=== PATIENT | female | born 1935 | race Caucasian/White ===

== ENCOUNTER 2017-01-26 02:09 | Emergency (ER) | payer MEDICARE, OTHER ==
[2017-01-26] MEDS ORDERED: Ondansetron INJ* 2 MG/ML VIAL IV ONE (02:43)
[2017-01-26 03:37] LABS: Hematocrit 41 % (35-47); Hemoglobin 14.2 g/dl (12.0-16.0); Mean Corpuscular HGB Conc 35 g/dl (31-36); Mean Corpuscular Hemoglobin 32 pg (27-31); Mean Corpuscular Volume 93 fL (80-97); Mean Platelet Volume 8 um3 (7.4-10.4); Red Blood Count 4.39 10^6/ul (4.0-5.4); Red Cell Distribution Width 13 % (10.5-15); White Blood Count 8.7 10^3/ul (3.5-10.8)
[2017-01-26 03:51] LABS: Digoxin 0.9 ng/ml (0.8-2.0)
[2017-01-26 03:53] LABS: Albumin 4.1 g/dL (3.2-5.2); BUN/Creatinine Ratio 21.6 (8-20); Calcium 9.6 mg/dL (8.6-10.3); EGFR African American 96.6 (>60); EGFR Non-African American 75.1 (>60); Globulin 3.2 g/dL (2-4); Magnesium 2.1 mg/dL (1.9-2.7); Total Bilirubin 0.5 mg/dL (0.2-1.0); Total Protein 7.3 g/dL (6.4-8.9)
[2017-01-26] MEDS ORDERED: Morphine INJ* 2 MG/ML 1 ML CARPUJECT IV ONE (04:01)
[2017-01-26 04:10] LABS: TSH (Thyroid Stimulating Horm) 1.92 mcIU/mL (0.34-5.60)
[2017-01-26 04:28] LABS: C Reactive Protein 1.63 mg/L (< 5.00)
[2017-01-26] MEDS ORDERED: Iohexol 300* (CONTRAST) 10 ML SDV IV ONE (04:37)
[2017-01-26 05:34] LABS: Urine Bacteria 1+ (Absent); Urine Bilirubin Negative (Negative); Urine Glucose Negative (Negative); Urine Nitrite Negative (Negative)
--- NOTE | 2017-01-26 08:02 | RAD ---
HISTORY: Palpitation COMPARISONS: October 08, 2015 VIEWS: 1: frontal portable view of the chest at 3:10 AM FINDINGS: LINES AND TUBES: None. CARDIOMEDIASTINAL SILHOUETTE: The aorta is tortuous. The cardiomediastinal silhouette is otherwise normal for portable technique. This is stable from the 2016 examination. PLEURA: The costophrenic angles are sharp. No pleural abnormalities are noted. LUNG PARENCHYMA: There is hyperinflation. ABDOMEN: The upper abdomen is clear. There is no subphrenic gas. Surgical clips are noted in the upper abdomen. 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 IMPRESSION: NO ACTIVE CARDIOPULMONARY DISEASE.
[2017-01-26 08:14] VITALS: BP 112/85
--- NOTE | 2017-01-26 08:24 | RAD ---
CLINICAL HISTORY: Abdominal pain COMPARISON: August 08, 2011 TECHNIQUE: Multiple contiguous axial CT scans were obtained of the abdomen and pelvis after the administration of intravenous contrast. Coronal and sagittal multiplanar reformations are submitted for review. Oral contrast was administered. Delayed images were obtained through the abdomen and pelvis. FINDINGS: LUNG BASES: The lung bases are clear. LIVER: The liver is normal in shape, size, contour, and attenuation. BILE DUCTS: There is no intrahepatic or extrahepatic biliary dilatation. GALLBLADDER: Multiple gallstones are noted. There is no pericholecystic inflammatory change. PANCREAS: The pancreas is normal, without mass or ductal dilatation. SPLEEN: Normal in size and appearance. UPPER GI TRACT: Evaluation of the gastrointestinal tract is limited by incomplete gastric distention. There are multiple surgical clips along the upper GI tract. SMALL BOWEL AND MESENTERY: The small bowel is normal in contour, course, and caliber. There is no obstruction or dilatation. COLON: There are multiple diverticula of the sigmoid colon. There is no pericolonic inflammatory change. ADRENALS: Normal bilaterally. KIDNEYS: A left renal cyst is noted.. There is no hydronephrosis or nephrolithiasis. BLADDER: The bladder is smooth in contour. PELVIC ORGANS: The pelvic organs are not visualized. AORTA: There is calcific atherosclerotic disease of the abdominal aorta and its branches, without aneurysmal dilatation IVC: Unremarkable LYMPH NODES: There is no lymphadenopathy by size criteria. ABDOMINAL WALL: There is no evidence for abdominal wall hernia. BONES AND SOFT TISSUES: There is a scoliotic curvature of the spine. Degenerative changes are noted. OTHER: None IMPRESSION: CHOLELITHIASIS. DIVERTICULOSIS
--- NOTE | 2017-01-26 10:09 | ED ---
Tanisha Torres Thomas, scribed for Tracy Rodriguez MD on 01/26/17 at 0243 . Palpitations / Dysrhythmia - HPI Summary HPI Summary: The pt is an 80 y/o F presenting to the ED c/o palpitations characterized as that began today at approximately 00:00. She reports generalized illness throughout yesterday. She did not sleep well last night. Pt additionally c/o mild abdominal pain (all yesterday), cough, and nausea. Pt denies CP. She is accompanied by her . PMHx of A-Fib, peripheral neuropathy, and LVH. She is on Xarelto 20mg, Duloxetine 30mg, Tramadol 50mg, Digoxin 125mg, Amoxicillin 500mg, Magnesium 250mg, and Spironolactone 25mg. She is accompanied by her . His phone number is . - History of Current Complaint Chief Complaint: EDDysrhythmPalp Hx Obtained From: Patient, Family/Meat Boner And Slicer - in the room Onset/Duration: Lasting Hours - onset today at 00:00, Still Present Timing: Constant Severity Initially: Moderate Severity Currently: Severe Character: Fast Aggravating: Nothing Alleviating: Nothing Associated Signs & Symptoms: Negative - negative for CP. She reports cough and mild abd pain., Nausea - Allergy/Home Medications Allergies/Adverse Reactions: Allergies Allergy/AdvReac Type Severity Reaction Status Date / Time No Known Allergies Allergy Verified 01/27/15 15:11 PMH/Surg Hx/FS Hx/Imm Hx Previously Healthy: No Endocrine/Hematology History: Reports: Hx Anticoagulant Therapy - xarelto 20mg PO daily Denies: Hx Diabetes, Hx Thyroid Disease Cardiovascular History: Reports: Hx Angina, Hx Atrial Fibrillation, Hx Hypercholesterolemia, Hx Hypertension Denies: Hx Coronary Artery Disease, Hx Myocardial Infarction, Hx Pacemaker/ ICD, Hx Valvular Heart Disease Respiratory History: Denies: Hx Asthma, Hx Chronic Obstructive Pulmonary Disease (COPD) Comment Only: Other Respiratory Problems/Disorders - HIATAL HERNIA REPAIR GI History: Reports: Other GI Disorders - recurent unexplained diarrhea Denies: Hx Ulcer History: Reports: Other Problems/Disorders - occasional incontinence Denies: Hx Renal Disease Musculoskeletal History: Reports: Hx Arthritis, Hx Osteoporosis, Other Musculoskeletal History - upper back pain Sensory History: Reports: Hx Contacts or Glasses Denies: Hx Hearing Aid Opthamlomology History: Reports: Hx Contacts or Glasses Neurological History: Reports: Hx Headaches, Other Neuro Impairments/Disorders - neuropathy, balance problem Denies: Hx Dementia, Hx Seizures Psychiatric History: Reports: Hx Depression - Denies: Hx Panic Disorder, Hx Substance Abuse - Cancer History Hx Chemotherapy: No Hx Radiation Therapy: No - Surgical History Surgery Procedure, Year, and Place: HYSTERECTOMY,KNEE REPLACEMENT RT SIDE, HIATAL HERNIA REPAIR Hx Anesthesia Reactions: No - Immunization History Date of Tetanus Vaccine: Unsure Date of Influenza Vaccine: up to date Infectious Disease History: No Infectious Disease History: Denies: Hx Clostridium Difficile, Hx Hepatitis, Hx Human Immunodeficiency Virus (HIV), Hx of Known/Suspected MRSA, Hx Shingles, Hx Tuberculosis, Hx Known/ Suspected VRE, Hx Known/Suspected VRSA, History Other Infectious Disease, Traveled Outside the in Last 30 Days - Family History Known Family History: Positive: Cardiac Disease - Social History Lives: With Family Alcohol Use: Daily Hx Substance Use: No Substance Use Type: Reports: None Hx Tobacco Use: Yes Smoking Status (MU): Former Smoker Review of Systems Positive: Other - Generalized illness yesterday Positive: Palpitations - characterized as racing with onset today at 00:00. Negative: Chest Pain Positive: Cough Positive: Abdominal Pain - mild, Nausea Positive: no symptoms reported Skin: Negative Neurological: Negative Psychological: Normal All Other Systems Reviewed And Are Negative: Yes Physical Exam Triage Information Reviewed: Yes Vital Signs On Initial Exam: Initial Vitals Temp Pulse Resp BP Pulse Ox 97.3 F 111 20 132/90 100 01/26/17 02:14 01/26/17 02:14 01/26/17 02:14 01/26/17 02:14 01/26/17 02:14 Vital Signs Reviewed: Yes Appearance: Positive: Well-Appearing, Well-Nourished, Pain Distress - abdominal Skin: Positive: Warm, Skin Color Reflects Adequate Perfusion Head/Face: Positive: Normal Head/Face Inspection Eyes: Positive: Conjunctiva Clear ENT: Positive: Normal ENT inspection Neck: Positive: Supple Respiratory/Lung Sounds: Positive: Clear to Auscultation, Breath Sounds Present , Other - No respiratory distress Cardiovascular: Positive: RRR, Pulses are Symmetrical in both Upper and Lower Extremities, Tachycardia, Other - Brisk cap refill. Negative: Murmur Abdomen Description: Positive: Soft, Other: - mild diffuse tenderness Bowel Sounds: Positive: Present Musculoskeletal: Positive: Strength/ROM Intact. Negative: Janette Sign Left, Janette Sign Right, Edema Left, Edema Right Neurological: Positive: Sensory/Motor Intact, Alert, Oriented to Person Place, Time, Facial Symmetry, Speech Normal Psychiatric: Positive: Normal Diagnostics - Vital Signs Vital Signs Temp Pulse Resp BP Pulse Ox 01/26/17 02:14 97.3 F 111 20 132/90 100 - Laboratory Lab Results: Lab Results 01/26/17 01/26/17 01/26/17 Range/Units 03:25 03:25 03:25 WBC 8.7 (3.5-10.8) 10^3/ul RBC 4.39 (4.0-5.4) 10^6/ul Hgb 14.2 (12.0-16.0) g/dl Hct 41 (35-47) % MCV 93 (80-97) fL MCH 32 H (27-31) pg MCHC 35 (31-36) g/dl RDW 13 (10.5-15) % Plt Count 289 (150-450) 10^3/ul MPV 8 (7.4-10.4) um3 Neut % (Auto) 65.6 (38-83) % Lymph % (Auto) 21.4 L (25-47) % [place] % (Auto) 9.9 H (1-9) % Eos % (Auto) 1.9 (0-6) % Baso % (Auto) 1.2 (0-2) % Absolute Neuts (auto) 5.7 (1.5-7.7) 10^3/ul Absolute Lymphs (auto) 1.9 (1.0-4.8) 10^3/ul Absolute Monos (auto) 0.9 H (0-0.8) 10^3/ul Absolute Eos (auto) 0.2 (0-0.6) 10^3/ul Absolute Basos (auto) 0.1 (0-0.2) 10^3/ul Absolute Nucleated RBC 0 10^3/ul Nucleated RBC % 0 INR (Anticoag Therapy) 1.05 (0.89-1.11) APTT 30.1 (26.0-36.3) seconds D-Dimer, Quantitative < 200 (Less Than 230) ng/mL Sodium (133-145) mmol/L Potassium (3.5-5.0) mmol/L Chloride (101-111) mmol/L Carbon Dioxide (22-32) mmol/L Anion Gap (2-11) mmol/L BUN (6-24) mg/dL Creatinine (0.51-0.95) mg/dL Est GFR ( Amer) (>60) Est GFR (Non-Af Amer) (>60) BUN/Creatinine Ratio (8-20) Glucose (70-100) mg/dL Lactic Acid (0.5-2.0) mmol/L Calcium (8.6-10.3) mg/dL Magnesium (1.9-2.7) mg/dL Total Bilirubin (0.2-1.0) mg/dL AST (13-39) U/L ALT (7-52) U/L Alkaline Phosphatase (34-104) U/L Total Creatine Kinase (10-223) U/L CK-MB (CK-2) (0.6-6.3) ng/mL Troponin I (<0.04) ng/mL C-Reactive Protein (< 5.00) mg/L B-Natriuretic Peptide 40 ( - 100) pg/mL Total Protein (6.4-8.9) g/dL Albumin (3.2-5.2) g/dL Globulin (2-4) g/dL Albumin/Globulin Ratio (1-3) Amylase (29-103) U/L Lipase (11.0-82.0) U/L TSH (0.34-5.60) mcIU/mL Urine Color Urine Appearance Urine pH (5-9) Ur Specific [place] (1.010-1.030) Urine Protein (Negative) Urine Ketones (Negative) Urine Blood (Negative) Urine Nitrate (Negative) Urine Bilirubin (Negative) Urine Urobilinogen (Negative) Ur Leukocyte Esterase (Negative) Urine WBC (Auto) (Absent) Urine RBC (Auto) (Absent) Ur Squamous Epith Cells (Absent) Urine Bacteria (Absent) Urine Glucose (Negative) Digoxin (0.8-2.0) ng/ml 01/26/17 01/26/17 01/26/17 Range/Units 03:25 03:25 05:00 WBC (3.5-10.8) 10^3/ul RBC (4.0-5.4) 10^6/ul Hgb (12.0-16.0) g/dl Hct (35-47) % MCV (80-97) fL MCH (27-31) pg MCHC (31-36) g/dl RDW (10.5-15) % Plt Count (150-450) 10^3/ul MPV (7.4-10.4) um3 Neut % (Auto) (38-83) % Lymph % (Auto) (25-47) % [place] % (Auto) (1-9) % Eos % (Auto) (0-6) % Baso % (Auto) (0-2) % Absolute Neuts (auto) (1.5-7.7) 10^3/ul Absolute Lymphs (auto) (1.0-4.8) 10^3/ul Absolute Monos (auto) (0-0.8) 10^3/ul Absolute Eos (auto) (0-0.6) 10^3/ul Absolute Basos (auto) (0-0.2) 10^3/ul Absolute Nucleated RBC 10^3/ul Nucleated RBC % INR (Anticoag Therapy) (0.89-1.11) APTT (26.0-36.3) seconds D-Dimer, Quantitative (Less Than 230) ng/mL Sodium 136 (133-145) mmol/L Potassium 4.0 (3.5-5.0) mmol/L Chloride 102 (101-111) mmol/L Carbon Dioxide 26 (22-32) mmol/L Anion Gap 8 (2-11) mmol/L BUN 16 (6-24) mg/dL Creatinine 0.74 (0.51-0.95) mg/dL Est GFR ( Amer) 96.6 (>60) Est GFR (Non-Af Amer) 75.1 (>60) BUN/Creatinine Ratio 21.6 H (8-20) Glucose 112 H (70-100) mg/dL Lactic Acid 1.4 (0.5-2.0) mmol/L Calcium 9.6 (8.6-10.3) mg/dL Magnesium 2.1 (1.9-2.7) mg/dL Total Bilirubin 0.50 (0.2-1.0) mg/dL AST 15 (13-39) U/L ALT 20 (7-52) U/L Alkaline Phosphatase 57 (34-104) U/L Total Creatine Kinase 39 (10-223) U/L CK-MB (CK-2) 1.9 (0.6-6.3) ng/mL Troponin I 0.00 (<0.04) ng/mL C-Reactive Protein 1.63 (< 5.00) mg/L B-Natriuretic Peptide ( - 100) pg/mL Total Protein 7.3 (6.4-8.9) g/dL Albumin 4.1 (3.2-5.2) g/dL Globulin 3.2 (2-4) g/dL Albumin/Globulin Ratio 1.3 (1-3) Amylase 54 (29-103) U/L Lipase 57 (11.0-82.0) U/L TSH 1.92 (0.34-5.60) mcIU/mL Urine Color Yellow Urine Appearance Cloudy Urine pH 6.0 (5-9) Ur Specific [place] 1.016 (1.010-1.030) Urine Protein Negative (Negative) Urine Ketones Negative (Negative) Urine Blood Negative (Negative) Urine Nitrate Negative (Negative) Urine Bilirubin Negative (Negative) Urine Urobilinogen Negative (Negative) Ur Leukocyte Esterase 2+ H (Negative) Urine WBC (Auto) 1+(6-10/hpf) H (Absent) Urine RBC (Auto) Absent (Absent) Ur Squamous Epith Cells Present H (Absent) Urine Bacteria 1+ H (Absent) Urine Glucose Negative (Negative) Digoxin 0.9 (0.8-2.0) ng/ml 01/26/17 Range/Units 07:00 WBC (3.5-10.8) 10^3/ul RBC (4.0-5.4) 10^6/ul Hgb (12.0-16.0) g/dl Hct (35-47) % MCV (80-97) fL MCH (27-31) pg MCHC (31-36) g/dl RDW (10.5-15) % Plt Count (150-450) 10^3/ul MPV (7.4-10.4) um3 Neut % (Auto) (38-83) % Lymph % (Auto) (25-47) % [place] % (Auto) (1-9) % Eos % (Auto) (0-6) % Baso % (Auto) (0-2) % Absolute Neuts (auto) (1.5-7.7) 10^3/ul Absolute Lymphs (auto) (1.0-4.8) 10^3/ul Absolute Monos (auto) (0-0.8) 10^3/ul Absolute Eos (auto) (0-0.6) 10^3/ul Absolute Basos (auto) (0-0.2) 10^3/ul Absolute Nucleated RBC 10^3/ul Nucleated RBC % INR (Anticoag Therapy) (0.89-1.11) APTT (26.0-36.3) seconds D-Dimer, Quantitative (Less Than 230) ng/mL Sodium (133-145) mmol/L Potassium (3.5-5.0) mmol/L Chloride (101-111) mmol/L Carbon Dioxide (22-32) mmol/L Anion Gap (2-11) mmol/L BUN (6-24) mg/dL Creatinine (0.51-0.95) mg/dL Est GFR ( Amer) (>60) Est GFR (Non-Af Amer) (>60) BUN/Creatinine Ratio (8-20) Glucose (70-100) mg/dL Lactic Acid (0.5-2.0) mmol/L Calcium (8.6-10.3) mg/dL Magnesium (1.9-2.7) mg/dL Total Bilirubin (0.2-1.0) mg/dL AST (13-39) U/L ALT (7-52) U/L Alkaline Phosphatase (34-104) U/L Total Creatine Kinase (10-223) U/L CK-MB (CK-2) (0.6-6.3) ng/mL Troponin I 0.00 (<0.04) ng/mL C-Reactive Protein (< 5.00) mg/L B-Natriuretic Peptide ( - 100) pg/mL Total Protein (6.4-8.9) g/dL Albumin (3.2-5.2) g/dL Globulin (2-4) g/dL Albumin/Globulin Ratio (1-3) Amylase (29-103) U/L Lipase (11.0-82.0) U/L TSH (0.34-5.60) mcIU/mL Urine Color Urine Appearance Urine pH (5-9) Ur Specific [place] (1.010-1.030) Urine Protein (Negative) Urine Ketones (Negative) Urine Blood (Negative) Urine Nitrate (Negative) Urine Bilirubin (Negative) Urine Urobilinogen (Negative) Ur Leukocyte Esterase (Negative) Urine WBC (Auto) (Absent) Urine RBC (Auto) (Absent) Ur Squamous Epith Cells (Absent) Urine Bacteria (Absent) Urine Glucose (Negative) Digoxin (0.8-2.0) ng/ml Result Diagrams: 01/26/17 03:25 01/26/17 03:25 Lab Statement: Any lab studies that have been ordered have been reviewed, and results considered in the medical decision making process. - Radiology CXR Xray Interpretation: No Acute Changes - No active cardiopulmonary disease. ED physician has reviewed this report and agrees. Radiology Interpretation Completed By: Radiologist - EKG 02:26 Cardiac Rate: NL - 98 BPM EKG Rhythm: Sinus Rhythm EKG Interpretation: First degree AV block (211). Nml IV/QTc. Left axis (-14). No acute changes. EKG Comparison: No Significant Change - compared to 10/07/16. Re-Evaluation - Re-Evaluation First Eval Re-Evaluation Time: 03:56 Change: Worse Comment: At re-evaluation the patient is feelng more uncomortable. She accepts pain medication. Second Eval Re-Evaluation Time: 05:46 Change: Improved Comment: She is without pain. She is drinking the contrast before the CT. Third Eval Re-Evaluation Time: 09:00 - Advised of CT results showing gallstones. Reports she is painfree. Will take a cab home so her can sleep. Change: Improved Course/Dx - Course Course Of Treatment: I am drawing a 3 hr troponin at 06:15. Allergies noted. High blood pressure noted. Patients medications reviewed this visit. Assessment/Plan: The pt is an 81 y/o F presenting to the ED c/o palpitations characterized as that began today at approximately 00:00. Pt additionally c/o mild abdominal pain (all yesterday), cough, and nausea. PMHx of A-Fib, peripheral neuropathy, and LVH. Patients medication reviewed this visit. Blood pressure noted. In the ED course the patient was given morphine and Zofran. The patient was given Morphine and Zofran in the ED. Bloodwork was obtained with results earlier in this report. UA was obtained with results earlier in this report. It is negative except for 2+ in the RBC, RBC 1+, and 1+ bacteria. EKG was obtained and pt is in SR. CXR shows no active cardiopulmonary disease. CT Abd/Pel reveals cholelithiasis and diverticulosis. ED physician has reviewed this report and agrees. Second troponin is negative and pt remains in SR at a controlled rate. The patient is stable. She will be discharged home. She was instructed to return to the emergency department for any new or worsening symptoms. - Diagnoses Differential Diagnosis/HQI/PQRI: Positive: Congestive Heart Failure, Coronary Artery Disease, Hypokalemia, Myocarditis, Pulmonary Embolism Provider Diagnoses: Palpitations, Gallstones Discharge - Discharge Plan Condition: Stable Disposition: HOME Prescriptions: Sulfamethox/Trimethoprim DS* [Bactrim DS 800/160 TAB*] 1 tab PO BID #10 tab Patient Education Materials: Palpitations (ED), Gallstones (ED) Referrals: Dina Harding MD [Primary Care Provider] - 2 Days Additional Instructions: The CT scan of your abdomen showed gallstones. We gave you a copy of your labs. Return to the ER if any new or worsening symptoms. The documentation as recorded by the Tanisha peters Thomas accurately reflects the service I personally performed and the decisions made by , Tracy Rodriguez MD.
--- NOTE | 2017-01-28 09:23 | PN ---
Progress Note - Progress Note Date of Service: 01/26/17 Note: >100,000 of E. Coli grew on preliminary urine culture results. Spoke with patient at 9:05am who states the only symptoms she is having is feeling the urge to urinate without producing. Started on bactrim, sent to [facility]. Will wait for final culture sensitivity results. Results were faxed to PCP, patient request. No further action required at this time.
== END 2017-01-26 08:14 | disposition home or self-care (01) ==
LOC: ED 02:09
DX: R00.2 Palpitations (principal); K80.80 Other cholelithiasis without obstruction; Z87.891 Personal history of nicotine dependence; I48.91 Unspecified atrial fibrillation; E78.00 Pure hypercholesterolemia, unspecified; I10 Essential (primary) hypertension; M19.90 Unspecified osteoarthritis, unspecified site; M81.0 Age-related osteoporosis without current pathological fracture; I44.0 Atrioventricular block, first degree
CPT/HCPCS: 36415; 71010; 74177; 80053; 80162; 81003; 81015; 82150; 82550; 82553; 83605; 83690; 83735; 83880; 84443; 84484; 85025; 85379; 85610; 85730; 86140; 87077; 87086; 87186; 93005; 96374; 96375; 99284; J2270; J2405; Q9967

== ENCOUNTER 2017-12-23 10:14 | Emergency (ER) | payer MEDICARE, OTHER ==
[2017-12-23 10:28] VITALS: BP 117/73
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
--- NOTE | 2017-12-23 11:22 | RAD ---
INDICATION: Left hip injury. COMPARISON: Comparison is made with a prior CT of the abdomen and pelvis from January 26, 2017. TECHNIQUE: An AP view of the pelvis and frontal and lateral views of the left hip were obtained. FINDINGS: The bones are in normal alignment. No fracture is seen. There is mild bilateral osteoarthritic changes in the hips. IMPRESSION: NO EVIDENCE FOR FRACTURE, IF THE PATIENT'S SYMPTOMS PERSIST RECOMMEND FOLLOW-UP IMAGING.
--- NOTE | 2017-12-23 11:28 | RAD ---
INDICATION: Left knee injury. COMPARISON: Comparison is made with a prior study from October 23, 2016. TECHNIQUE: 4 views of the left knee were obtained. FINDINGS: The bones appear osteopenic. There is a small joint effusion. No fracture is seen. Calcifications project in the region of the suprapatella bursa which appear unchanged. There is severe osteoarthritic change in the lateral compartment and mild osteoarthritic change in the medial and patellofemoral compartments. IMPRESSION: 1. SMALL JOINT EFFUSION, NO FRACTURE IS SEEN. 2. SEVERE OSTEOARTHRITIC CHANGE IN THE LATERAL COMPARTMENT.
== END 2017-12-23 11:50 | disposition home or self-care (01) ==
LOC: UCEAST 10:14
DX: S83.92XA Sprain of unspecified site of left knee, initial encounter (principal); S70.02XA Contusion of left hip, initial encounter; Z79.01 Long term (current) use of anticoagulants; I10 Essential (primary) hypertension; Z87.891 Personal history of nicotine dependence; W19.XXXA Unspecified fall, initial encounter; Y93.89 Activity, other specified; Y92.009 Unspecified place in unspecified non-institutional (private) residence as the place of occurrence of the external cause
CPT/HCPCS: 99212; G0463

== ENCOUNTER 2018-10-18 10:20 | Emergency (ER) | payer MEDICARE, OTHER ==
--- NOTE | 2018-10-18 10:54 | ED ---
Psychiatric Complaint - HPI Summary HPI Summary: An 83 y/o female presents to [facility] with a chief complaint of SI without a plan this morning. She notes that every day she has pain in her left knee due to severe arthritis, and she is tired of living in pain. She rates her pain as a 1/ 10 in severity. She also reports that she recently stopped driving and that makes her upset because reportedly her nurse thought that she was not capable of driving. Even though currently she denies SI, she notes that while she was looking forward to going to the theatre tonight, at the time this morning she was thinking about suicide. However, she dealt with SI 40 years ago and her psychiatrist told her that she should come talk to someone before making a decision, so she came in to the ED. She has a Hx of HTN and Atrial fibrillation. She denies DM or HLD. She is on Tramadol. She reports falling 1.5 months ago and hitting her head above her left eye. She reports having a Brain MRI done two days ago. While she states that she has not been diagnosed with depression, she thinks that she has been dealing with depression. - History Of Current Complaint Chief Complaint: EDSuicidal Time Seen by Provider: 10/18/18 10:36 Hx Obtained From: Patient Onset/Duration: Sudden Onset, Lasting Hours, Still Present Timing: Constant Severity Initially: Mild Severity Currently: Mild Character: Depressed Aggravating Factor(s): Nothing Alleviating Factor(s): Nothing Associated Signs And Symptoms: Negative: Hostile Related History: Positive For: Prior Psychiatric Issues Has Suicidal: Reports: Thoughts. Denies: With A Plan Has Homicidal: Denies: Thoughts - Allergies/Home Medications Allergies/Adverse Reactions: Allergies Allergy/AdvReac Type Severity Reaction Status Date / Time No Known Allergies Allergy Verified 10/18/18 10:29 Home Medications: Home Medications DULoxetine DR CAP* [Cymbalta CAP*] 60 mg PO DAILY 10/18/18 [History Confirmed ] L.acidoph,Paracasei, B.lactis [Probiotic] 1 each PO DAILY 10/18/18 [History Confirmed 10/18/18] PMH/Surg Hx/FS Hx/Imm Hx Endocrine/Hematology History: Reports: Hx Anticoagulant Therapy - xarelto 20mg PO daily Denies: Hx Diabetes, Hx Thyroid Disease Cardiovascular History: Reports: Hx Angina, Hx Atrial Fibrillation, Hx Hypercholesterolemia, Hx Hypertension Denies: Hx Coronary Artery Disease, Hx Myocardial Infarction, Hx Pacemaker/ ICD, Hx Valvular Heart Disease Respiratory History: Denies: Hx Asthma, Hx Chronic Obstructive Pulmonary Disease (COPD) Comment Only: Other Respiratory Problems/Disorders - HIATAL HERNIA REPAIR GI History: Reports: Other GI Disorders - recurent unexplained diarrhea Denies: Hx Ulcer History: Reports: Other Problems/Disorders - occasional incontinence Denies: Hx Renal Disease Musculoskeletal History: Reports: Hx Arthritis, Hx Osteoporosis, Other Musculoskeletal History - upper back pain Sensory History: Reports: Hx Contacts or Glasses Denies: Hx Hearing Aid Opthamlomology History: Reports: Hx Contacts or Glasses Neurological History: Reports: Hx Headaches, Other Neuro Impairments/Disorders - neuropathy, balance problem Denies: Hx Dementia, Hx Seizures Psychiatric History: Reports: Hx Depression - Denies: Hx Panic Disorder, Hx Substance Abuse - Cancer History Hx Chemotherapy: No Hx Radiation Therapy: No - Surgical History Surgery Procedure, Year, and Place: HYSTERECTOMY,KNEE REPLACEMENT RT SIDE, HIATAL HERNIA REPAIR Hx Anesthesia Reactions: No - Immunization History Date of Tetanus Vaccine: Unsure Date of Influenza Vaccine: up to date Infectious Disease History: No Infectious Disease History: Denies: Hx Clostridium Difficile, Hx Hepatitis, Hx Human Immunodeficiency Virus (HIV), Hx of Known/Suspected MRSA, Hx Shingles, Hx Tuberculosis, Hx Known/ Suspected VRE, Hx Known/Suspected VRSA, History Other Infectious Disease, Traveled Outside the [place] in Last 30 Days - Family History Known Family History: Positive: Cardiac Disease, Hypertension - Social History Alcohol Use: Daily Hx Substance Use: No Substance Use Type: Reports: None Hx Tobacco Use: Yes Smoking Status (MU): Former Smoker Review of Systems Negative: Fever Positive: Arthralgia - left knee pain Psychological: Other - positive: SI without a plan this morning, no current SI All Other Systems Reviewed And Are Negative: Yes Physical Exam - Summary Physical Exam Summary: GENERAL: Patient is a well-developed and nourished F who is lying comfortable in the stretcher. Patient is not in any acute respiratory distress. HEAD AND FACE: Normocephalic EYES: PERRLA, EOMI x 2. EARS: Hearing grossly intact. MOUTH: Oropharynx within normal limits. NECK: Supple, trachea is midline, no adenopathy, no JVD, no carotid bruit. CHEST: Symmetric, no tenderness at palpation LUNGS: Clear to auscultation bilaterally. No wheezing or crackles. CVS: Regular rate and rhythm, S1 and S2 present, no murmurs or gallops appreciated. ABDOMEN: Soft, non-tender. Bowel sounds are normal. No abnormal abdominal pulsations. EXTREMITIES: Full ROM in all major joints, no edema, no cyanosis or clubbing. NEURO: Alert and oriented x 3. No acute neurological deficits. Speech is normal and follows commands. SKIN: Dry and warm Psych: Sad affect, no SI or HI, no visible auras or hallucinations Triage Information Reviewed: Yes Vital Signs On Initial Exam: Initial Vitals Temp Pulse Resp BP Pulse Ox 97.8 F 103 16 130/94 97 10/18/18 10:23 10/18/18 10:23 10/18/18 10:23 10/18/18 10:23 10/18/18 10:23 Vital Signs Reviewed: Yes Diagnostics - Vital Signs Vital Signs Temp Pulse Resp BP Pulse Ox 10/18/18 10:23 97.8 F 103 16 130/94 97 - Laboratory Result Diagrams: 10/18/18 11:09 10/18/18 11:09 Lab Statement: Any lab studies that have been ordered have been reviewed, and results considered in the medical decision making process. - EKG 11:03 Cardiac Rate: NL - 86 bpm EKG Rhythm: Sinus Rhythm Summary of EKG Findings: EKG at 11:03 showed NSR at 86 bpm, nml axis. Course/Dx - Course Course Of Treatment: An 83 y/o female presents to [facility] with a chief complaint of SI without a plan this morning. She notes that every day she has pain in her left knee due to severe arthritis, and she is tired of living in pain. The physical exam revealed sad affect, no SI or HI, no visible auras or hallucinations. EKG at 11:03 showed NSR at 86 bpm, nml axis. Bloodwork, chemistries, urines and toxicology obtained. BUN/Creatinine Ratio 21.1, Glucose 114, Ur Leukocyte Esterase 2+ and Ur Squamous Epith Cells Present. The patient has been cleared for MHE. Per mental health security attendant, Dr. Xavier, psych, has cleared the patient for discharge. Dx: Depression. The patient is agreeable with this plan. - Differential Dx/Clinical Impression Provider Diagnosis: Depression - Physician Notifications Discussed Care Of Patient With: Stephen Xavier Time Discussed With Above Provider: 12:57 Instructed by Provider To: Other - Per mental health security attendant, Dr. Xavier has cleared the patient for discharge. Dx: Depression. Discharge - Sign-Out/Discharge Documenting (check all that apply): Patient Departure - DC Patient Received Moderate/Deep Sedation with Procedure: No - Discharge Plan Condition: Stable Disposition: HOME Patient Education Materials: Depression (ED) Referrals: Dina Harding MD [Primary Care Provider] - - Billing Disposition and Condition Condition: STABLE Disposition: Home - Attestation Statements Document Initiated by Scribe: Yes Documenting Scribe: Glynn Talavera Provider For Whom Scribe is Documenting (Include Credential): Adi Anderson MD Scribe Attestation: Glynn Torres scribed for Adi Anderson MD on 10/18/18 at 1808. Scribe Documentation Reviewed: Yes Provider Attestation: The documentation as recorded by the Glynn peters accurately reflects the service I personally performed and the decisions made by , Addy Anderson MD Status of Scribe Document: Viewed
[2018-10-18 11:29] LABS: ABS Basophils 0.1 10^3/ul (0-0.2); ABS Eosinophils 0.2 10^3/ul (0-0.6); ABS Lymphocytes 1.1 10^3/ul (1.0-4.8); ABS Monocytes 0.5 10^3/ul (0-0.8); ABS Neutrophils 3.6 10^3/ul (1.5-7.7); Hematocrit 38 % (35-47); Hemoglobin 12.7 g/dL (12.0-16.0); Lymphocyte % 20.3 %; Mean Corpuscular HGB Conc 34 g/dL (31-36); Mean Corpuscular Hemoglobin 31 pg (27-31); Mean Corpuscular Volume 92 fL (80-97); Mean Platelet Volume 7.9 fL (7.4-10.4); Platelet Count 260 10^3/uL (150-450); Red Blood Count 4.11 10^6 /uL (3.70-4.87); Red Cell Distribution Width 14 % (10-15); White Blood Count 5.5 10^3/uL (3.5-10.8)
[2018-10-18 11:45] LABS: ALT 25 U/L (7-52); AST 21 U/L (13-39); Albumin 3.9 g/dL (3.2-5.2); Albumin/Globulin Ratio 1.4 (1-3); Alkaline Phosphatase 77 U/L (34-104); Anion Gap 4 mmol/L (2-11); BUN/Creatinine Ratio 21.1 (8-20); Blood Urea Nitrogen 16 mg/dL (6-24); CO2 Carbon Dioxide 30 mmol/L (22-32); Calcium 9.5 mg/dL (8.6-10.3); Chloride 104 mmol/L (101-111); EGFR African American 87.7 (>60); EGFR Non-African American 72.5 (>60); Globulin 2.7 g/dL (2-4); Glucose 114 mg/dL (70-100); Potassium 4.4 mmol/L (3.5-5.0); Sodium 138 mmol/L (135-145); Total Protein 6.6 g/dL (6.4-8.9)
[2018-10-18 11:47] LABS: Acetaminophen < 15 mcg/mL; Alcohol < 10 mg/dL (<10); Salicylate < 2.50 mg/dL (<30)
[2018-10-18 12:02] LABS: TSH (Thyroid Stimulating Horm) 1.36 mcIU/mL (0.34-5.60)
[2018-10-18 12:08] LABS: Urine Appearance Clear; Urine Bacteria Absent (Absent); Urine Bilirubin Negative (Negative); Urine Blood Negative (Negative); Urine Color Yellow; Urine Glucose Negative (Negative); Urine Ketones Negative (Negative); Urine Nitrite Negative (Negative); Urine Protein Negative (Negative); Urine Red Blood Cell Trace(0-2/hpf) (Absent); Urine Squamous Epithelial Cell Present (Absent); Urine Urobilinogen Negative (Negative); Urine White Blood Cell Trace(0-5/hpf) (Absent)
[2018-10-18 12:12] LABS: Urine Benzodiazepine Screen None Detected (None Detect); Urine Opiates Screen None Detected (None Detect)
[2018-10-18 14:03] VITALS: BP 134/100
== END 2018-10-18 13:15 | disposition home or self-care (01) ==
LOC: ED 10:20
DX: F32.9 Major depressive disorder, single episode, unspecified (principal); M25.562 Pain in left knee; Z79.01 Long term (current) use of anticoagulants; Z96.651 Presence of right artificial knee joint; Z87.891 Personal history of nicotine dependence
CPT/HCPCS: 36415; 80053; 80307; 80320; 80329; 81003; 81015; 84443; 84484; 85025; 87040; 87086; 93005; 99283; G0480

== ENCOUNTER 2018-10-20 12:06 | Emergency (ER) | payer MEDICARE, OTHER ==
[2018-10-20 12:27] VITALS: BP 120/73
--- NOTE | 2018-10-20 12:51 | ED ---
Lower Extremity - HPI Summary HPI Summary: Pt presents w/ Rt great toe injury earlier this morning. Was walking to kitchen when she accidentally caught her Rt great toe on the carpet. Tripped forward but did not fall - was able to maintain her balance. Since, has noticed swelling , bruising and pain in the area but denies numbness, tingling, weakness. Has pain w/ ambulation/weight bearing on this side. Has been applying ice which has reduced pain. She also admits to taking multiple medications for pain and believes they have also "kicked-in" to alleviate her toe pain. Denies any other areas of pain/injury as result of tripping. Also states this was mechanical in nature and denies dizziness, etc preceding tripping. NOTE: she is currently working on attaining an ambulation aid. Lives at home w/ who care for her. - History of Current Complaint Chief Complaint: UCLowerExtremity Stated Complaint: rt toe injury Time Seen by Provider: 10/20/18 12:15 Hx Obtained From: Patient, Family/[employer] Coach - Parvez Pain Intensity: 4 - Allergies/Home Medications Allergies/Adverse Reactions: Allergies Allergy/AdvReac Type Severity Reaction Status Date / Time No Known Allergies Allergy Verified 10/20/18 12:28 PMH/Surg Hx/FS Hx/Imm Hx Previously Healthy: Yes Endocrine/Hematology History: Reports: Hx Anticoagulant Therapy - xarelto 20mg PO daily Denies: Hx Diabetes, Hx Thyroid Disease Cardiovascular History: Reports: Hx Angina, Hx Atrial Fibrillation, Hx Hypercholesterolemia, Hx Hypertension Denies: Hx Coronary Artery Disease, Hx Myocardial Infarction, Hx Pacemaker/ ICD, Hx Valvular Heart Disease Respiratory History: Denies: Hx Asthma, Hx Chronic Obstructive Pulmonary Disease (COPD) Comment Only: Other Respiratory Problems/Disorders - HIATAL HERNIA REPAIR GI History: Reports: Other GI Disorders - recurent unexplained diarrhea Denies: Hx Ulcer History: Reports: Other Problems/Disorders - occasional incontinence Denies: Hx Renal Disease Musculoskeletal History: Reports: Hx Arthritis, Hx Osteoporosis, Other Musculoskeletal History - 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 (surgery for ...?) Sensory History: Reports: Hx Contacts or Glasses Denies: Hx Hearing Aid Opthamlomology History: Reports: Hx Contacts or Glasses Neurological History: Reports: Hx Headaches, Other Neuro Impairments/Disorders - neuropathy, balance problem Denies: Hx Dementia, Hx Seizures Psychiatric History: Reports: Hx Depression - Denies: Hx Eating Disorder, Hx Panic Disorder, Hx Substance Abuse - Cancer History Hx Chemotherapy: No Hx Radiation Therapy: No - Surgical History Surgery Procedure, Year, and Place: HYSTERECTOMY,KNEE REPLACEMENT RT SIDE, HIATAL HERNIA REPAIR Hx Anesthesia Reactions: No - Immunization History Date of Tetanus Vaccine: Unsure Date of Influenza Vaccine: up to date Infectious Disease History: No Infectious Disease History: Denies: Hx Clostridium Difficile, Hx Hepatitis, Hx Human Immunodeficiency Virus (HIV), Hx of Known/Suspected MRSA, Hx Shingles, Hx Tuberculosis, Hx Known/ Suspected VRE, Hx Known/Suspected VRSA, History Other Infectious Disease, Traveled Outside the [place] in Last 30 Days - Family History Known Family History: Positive: Cardiac Disease, Hypertension - Social History Occupation: Retired Lives: With Family - at home w/ , Parvez Alcohol Use: Daily Alcohol Amount: 1/2 glass of wine Hx Substance Use: No Substance Use Type: Reports: None Hx Tobacco Use: Yes - not currently Smoking Status (MU): Former Smoker Review of Systems Constitutional: Negative Negative: Fatigue Eyes: Negative Cardiovascular: Negative Respiratory: Negative Positive: no symptoms reported Positive: Arthralgia, Edema Positive: Bruising Neurological: Negative Psychological: Normal All Other Systems Reviewed And Are Negative: Yes Physical Exam Triage Information Reviewed: Yes Vital Signs On Initial Exam: Initial Vitals Temp Pulse Resp BP Pulse Ox 97.9 F 95 18 120/73 97 10/20/18 12:23 10/20/18 12:23 10/20/18 12:23 10/20/18 12:23 10/20/18 12:23 Vital Signs Reviewed: Yes Appearance: Positive: Well-Appearing - seated in wheelchair with frozen beans package on Rt dorsal toes, Well-Nourished Skin: Positive: Warm, Skin Color Reflects Adequate Perfusion, Dry - edema w/ ecchymosis about the Rt hallux at IP joint - no skin breakdown Eyes: Positive: Other: - wearing glasses ENT: Positive: Hearing grossly normal Respiratory/Lung Sounds: Positive: Breath Sounds Present Cardiovascular: Positive: Other - DP's are non-palpable B/L - cap refill < 2 secs in all toes B/L; diffuse purpura in Lt foot - blanches w/ palpation (pt reports this is baseline). Negative: Leg Edema Left, Leg Edema Right Musculoskeletal: Positive: Strength/ROM Intact - no pain or restriction w/ toe, ankle movement Neurological: Positive: Sensory/Motor Intact - Rt hallux w/ sensation - 2nd toe on Rt with reduced sensation (pt reports this is baseline), Alert, Oriented to Person Place, Time Psychiatric: Positive: Normal - pleasant, calm, cooperative, in good spirits and reports "I'm doing much better" - Mcfarland Coma Scale Best Eye Response: 4 - Spontaneous Best Motor Response: 6 - Obeys Commands Best Verbal Response: 5 - Oriented Coma Scale Total: 15 Diagnostics - Vital Signs Vital Signs Temp Pulse Resp BP Pulse Ox 10/20/18 12:23 97.9 F 95 18 120/73 97 - Laboratory Lab Statement: Any lab studies that have been ordered have been reviewed, and results considered in the medical decision making process. Lower Extremity Course/Dx - Course Course Of Treatment: Rt hallux XR: minimally displaced Rt hallux at base. N/V intact - will refer to local zoning engineer w/ conservative care instructions in meantime - watch for danger s/sx. Pt is in the process of attaining a wheelchair and currently uses... for balance issues. Given injury, recommend limiting weight bearing but will provide post-op shoe for short distance walking to reduce pain/injury. RICE and f/u w/ zoning engineer. NOTE: Pt has appt scheduled for October 27 w/ PCP. Reviewed danger s/sx of when to seek tx sooner. Pt and agree w/ plan. - Diagnoses Provider Diagnoses: Toe fracture, right Discharge - Sign-Out/Discharge Documenting (check all that apply): Patient Departure All imaging exams completed and their final reports reviewed: Yes - Discharge Plan Condition: Stable Disposition: HOME Patient Education Materials: Toe Fracture (ED), Post Surgical Shoe (ED) Referrals: Ryan Alexandra DPM [Doctor of Podiatric Medicine] - Additional Instructions: Rest, ice, elevate and take current pain medications as directed Use walking shoe to reduce injury/prevent worsening of pain Follow-up with zoning engineer - call today to schedule an appointment *If you develop numbness, tingling, weakness, worsening of swelling, redness with streaking, fever or chills, go to the ED - Billing Disposition and Condition Condition: STABLE Disposition: Home
== END 2018-10-20 13:35 | disposition home or self-care (01) ==
LOC: UCEAST 12:06
DX: S92.491A Other fracture of right great toe, initial encounter for closed fracture (principal); W22.8XXA Striking against or struck by other objects, initial encounter; Y92.010 Kitchen of single-family (private) house as the place of occurrence of the external cause; I10 Essential (primary) hypertension; I48.91 Unspecified atrial fibrillation; E78.00 Pure hypercholesterolemia, unspecified; Z79.01 Long term (current) use of anticoagulants; Z87.891 Personal history of nicotine dependence
CPT/HCPCS: 99213; G0463

== ENCOUNTER → 2018-10-26 07:30 | Emergency (ER) | payer MEDICARE, OTHER ==
[2018-10-26 08:24] VITALS: BP 134/85
--- NOTE | 2018-10-26 09:10 | ED ---
Lower Extremity - HPI Summary HPI Summary: Patient is an 83-year-old female presenting to the ED with right toe pain. Patient states she fractured her toe approximately 5 days ago and was referred to a welt insole channeler. Since that time she has been placed in a postop shoe and a blister formed over the toe. The blister then burst last night and since then there has been erythema and the toe has been more swollen since that time. She is concerned for an infection. Small amount of bleeding prior to arrival, however bleeding is controlled on arrival. - History of Current Complaint Chief Complaint: EDExtremityLower Stated Complaint: BROKEN TOE ON RT FOOT PER PT Time Seen by Provider: 10/26/18 07:39 Hx Obtained From: Patient Pain Intensity: 4 Pain Scale Used: 0-10 Numeric Timing: Constant Location: Is Discrete @ - right toe - superior portion Associated Signs And Symptoms: Negative: Swelling, Redness, Bruising Aggravating Factor(s): Standing, Ambulation Alleviating Factor(s): Elevation Able to Bear Weight: No - Risk Factors Gout Risk Factors: Negative DVT Risk Factors: Negative Septic Arthritis Risk Factor: Negative - Allergies/Home Medications Allergies/Adverse Reactions: Allergies Allergy/AdvReac Type Severity Reaction Status Date / Time No Known Allergies Allergy Verified 10/26/18 07:33 Home Medications: Home Medications Acetaminophen [Acetaminophen Extra Strength] 500 mg PO BID 10/26/18 [History Confirmed 10/26/18] PMH/Surg Hx/FS Hx/Imm Hx Previously Healthy: Yes Endocrine/Hematology History: Reports: Hx Anticoagulant Therapy - xarelto 20mg PO daily Denies: Hx Diabetes, Hx Thyroid Disease Cardiovascular History: Reports: Hx Angina, Hx Atrial Fibrillation, Hx Hypercholesterolemia, Hx Hypertension Denies: Hx Coronary Artery Disease, Hx Myocardial Infarction, Hx Pacemaker/ ICD, Hx Valvular Heart Disease Respiratory History: Denies: Hx Asthma, Hx Chronic Obstructive Pulmonary Disease (COPD) Comment Only: Other Respiratory Problems/Disorders - HIATAL HERNIA REPAIR GI History: Reports: Other GI Disorders - recurent unexplained diarrhea Denies: Hx Ulcer History: Reports: Other Problems/Disorders - occasional incontinence Denies: Hx Renal Disease Musculoskeletal History: Reports: Hx Arthritis, Hx Rheumatoid Arthritis, Hx Osteoporosis, Other Musculoskeletal History - 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 (surgery for ...?) Sensory History: Reports: Hx Contacts or Glasses Denies: Hx Hearing Aid Opthamlomology History: Reports: Hx Contacts or Glasses Neurological History: Reports: Hx Headaches, Other Neuro Impairments/Disorders - neuropathy, balance problem Denies: Hx Dementia, Hx Seizures Psychiatric History: Reports: Hx Depression - Denies: Hx Eating Disorder, Hx Panic Disorder, Hx Substance Abuse - Cancer History Hx Chemotherapy: No Hx Radiation Therapy: No - Surgical History Surgery Procedure, Year, and Place: HYSTERECTOMY,KNEE REPLACEMENT RT SIDE, HIATAL HERNIA REPAIR Hx Anesthesia Reactions: No - Immunization History Date of Tetanus Vaccine: Unsure Date of Influenza Vaccine: up to date Hx Pertussis Vaccination: No Immunizations Up to Date: Yes Infectious Disease History: No Infectious Disease History: Denies: Hx Clostridium Difficile, Hx Hepatitis, Hx Human Immunodeficiency Virus (HIV), Hx of Known/Suspected MRSA, Hx Shingles, Hx Tuberculosis, Hx Known/ Suspected VRE, Hx Known/Suspected VRSA, History Other Infectious Disease, Traveled Outside the [place] in Last 30 Days - Family History Known Family History: Positive: Cardiac Disease, Hypertension - Social History Occupation: Unemployed Lives: With Family Alcohol Use: None Alcohol Amount: 1/2 glass of wine Hx Substance Use: No Substance Use Type: Reports: None Hx Tobacco Use: Yes - not currently Smoking Status (MU): Former Smoker Review of Systems Negative: Fever, Chills, Fatigue, Skin Diaphoresis Negative: Palpitations, Chest Pain Negative: Shortness Of Breath, Cough Positive: Arthralgia - right great toe. Negative: Myalgia Negative: Rash, Bruising Negative: Headache, Weakness Psychological: Normal All Other Systems Reviewed And Are Negative: Yes Physical Exam Triage Information Reviewed: Yes Vital Signs On Initial Exam: Initial Vitals Temp Pulse Resp BP Pulse Ox 98.0 F 90 16 156/107 97 10/26/18 07:33 10/26/18 07:33 10/26/18 07:33 10/26/18 07:33 10/26/18 07:33 Appearance: Positive: Well-Appearing, Well-Nourished Skin: Positive: Skin Color Reflects Adequate Perfusion, Other - right toe abrasion Head/Face: Positive: Normal Head/Face Inspection Eyes: Positive: EOMI, MLEISSA, Conjunctiva Clear Neck: Positive: Supple Respiratory/Lung Sounds: Positive: Clear to Auscultation, Breath Sounds Present Cardiovascular: Positive: Pulses are Symmetrical in both Upper and Lower Extremities Musculoskeletal: Positive: Strength/ROM Intact Neurological: Positive: Speech Normal Psychiatric: Positive: Normal, Affect/Mood Appropriate - Is Diagnostics - Vital Signs Vital Signs Temp Pulse Resp BP Pulse Ox 10/26/18 08:23 98.1 F 80 17 134/85 96 10/26/18 07:33 98.0 F 90 16 156/107 97 - Laboratory Lab Statement: Any lab studies that have been ordered have been reviewed, and results considered in the medical decision making process. Lower Extremity Course/Dx - Course Course Of Treatment: During his course of treatment, the patient is evaluated for right great toe pain. She injured the right great toe with a fracture of the proximal hallux approximately 5 days ago. Since that time she's been wearing a postop shoe which has been rubbing on her toe and causing a blister to form. Last night when the blister burst, the area bled as well as now having more erythema to the toe. She is concerned over an infection. On physical examination, there is no obvious signs of puncture wound or deep wounds for concern over an open fracture. Cleansed thoroughly, occlusive gauze wrapped in Kerlix wrapped. Patient was placed back in the postop shoe with good padding. Provider called orthopedic clinic to secure an appointment for next week with Dr. Aguilar on Friday at 8:30a. She is also given 5 days keflex for cellulitis. - Diagnoses Differential Diagnosis/HQI/PQRI: Positive: Fracture (Closed), Fracture (Open) Provider Diagnoses: Fracture, toe Discharge - Sign-Out/Discharge Documenting (check all that apply): Patient Departure Patient Received Moderate/Deep Sedation with Procedure: No - Discharge Plan Condition: Stable Disposition: HOME Prescriptions: Bacitracin OINTMENT* 1 applic TOPICAL DAILY #1 tube Cephalexin CAP* [Keflex CAP*] 500 mg PO TID #15 cap MDD 3 Patient Education Materials: Cellulitis (ED) Referrals: Denzel Smith MD [Medical Doctor] - Dina Harding MD [Primary Care Provider] - Additional Instructions: Please follow up with Dr. Smith on Friday, November 02 at 8:30a. You may call the office to confirm your appt. If symptoms worsen, return tot the ED Please keep the toe wrapped until follow up to prevent any rubbing of the area and to prevent infection. - Billing Disposition and Condition Condition: STABLE Disposition: Home
== END | disposition home or self-care (01) ==
LOC: ED 07:30
DX: S92.401A Displaced unspecified fracture of right great toe, initial encounter for closed fracture (principal); X58.XXXA Exposure to other specified factors, initial encounter; I48.91 Unspecified atrial fibrillation; I10 Essential (primary) hypertension; Z79.01 Long term (current) use of anticoagulants; Z87.891 Personal history of nicotine dependence
CPT/HCPCS: 99282

== ENCOUNTER 2019-02-25 07:44 | Emergency (ER) | payer MEDICARE, OTHER ==
--- NOTE | 2019-02-25 08:00 | ED ---
Abdominal Pain/Female - HPI Summary HPI Summary: Pt. is an 83 y.o female who presents to the ER for rectal pain and constipation that started last night. Pt. notes last BM was yesterday. Pt. notes she has not been eating as much salad as usual and believes that is why she became constipated. Pt. denies fever, CP, SOB, abd. pain, vomiting. Sxs are mild- moderate in severity. No current modifying factors. - History of Current Complaint Stated Complaint: CONSTIPATION PER EMS Time Seen by Provider: 02/25/19 07:46 Allergies/Adverse Reactions: Allergies Allergy/AdvReac Type Severity Reaction Status Date / Time No Known Allergies Allergy Verified 02/25/19 08:30 Home Medications: Home Medications Lidocaine 5% OINT* TUBE [Xylocaine 5% Oint*] 1 applic .SEE ORDER DAILY 02/25/19 [History Confirmed 02/25/19] PMH/Surg Hx/FS Hx/Imm Hx Previously Healthy: Yes Endocrine/Hematology History: Reports: Hx Anticoagulant Therapy - xarelto 20mg PO daily Denies: Hx Diabetes, Hx Thyroid Disease Cardiovascular History: Reports: Hx Angina, Hx Atrial Fibrillation, Hx Hypercholesterolemia, Hx Hypertension Denies: Hx Coronary Artery Disease, Hx Myocardial Infarction, Hx Pacemaker/ ICD, Hx Valvular Heart Disease Respiratory History: Denies: Hx Asthma, Hx Chronic Obstructive Pulmonary Disease (COPD) Comment Only: Other Respiratory Problems/Disorders - HIATAL HERNIA REPAIR GI History: Reports: Other GI Disorders - recurent unexplained diarrhea Denies: Hx Ulcer History: Reports: Other Problems/Disorders - occasional incontinence Denies: Hx Renal Disease Musculoskeletal History: Reports: Hx Arthritis, Hx Rheumatoid Arthritis, Hx Osteoporosis, Other Musculoskeletal History - 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 (surgery for ...?) Sensory History: Reports: Hx Contacts or Glasses Denies: Hx Hearing Aid Opthamlomology History: Reports: Hx Contacts or Glasses Neurological History: Reports: Hx Headaches, Other Neuro Impairments/Disorders - neuropathy, balance problem Denies: Hx Dementia, Hx Seizures Psychiatric History: Reports: Hx Depression - Denies: Hx Eating Disorder, Hx Panic Disorder, Hx Substance Abuse - Cancer History Hx Chemotherapy: No Hx Radiation Therapy: No - Surgical History Surgery Procedure, Year, and Place: HYSTERECTOMY,KNEE REPLACEMENT RT SIDE, HIATAL HERNIA REPAIR Hx Anesthesia Reactions: No - Immunization History Date of Tetanus Vaccine: Unsure Date of Influenza Vaccine: up to date Infectious Disease History: Denies: Hx Clostridium Difficile, Hx Hepatitis, Hx Human Immunodeficiency Virus (HIV), Hx of Known/Suspected MRSA, Hx Shingles, Hx Tuberculosis, Hx Known/ Suspected VRE, Hx Known/Suspected VRSA, History Other Infectious Disease - Family History Known Family History: Positive: Cardiac Disease, Hypertension, Non-Contributory - Social History Occupation: Retired Lives: With Family Alcohol Use: None Alcohol Amount: 1/2 glass of wine Hx Substance Use: No Substance Use Type: Reports: None Hx Tobacco Use: Yes - not currently Smoking Status (MU): Former Smoker Review of Systems Constitutional: Negative Cardiovascular: Negative Negative: Chest Pain Respiratory: Negative Negative: Shortness Of Breath Positive: Other - Positive constipation and rectal pain. Negative: Abdominal Pain, Vomiting, Nausea All Other Systems Reviewed And Are Negative: Yes Physical Exam Triage Information Reviewed: Yes Vital Signs Reviewed: Yes Appearance: Positive: Well-Appearing - Pt. lying on bed in NAD. Resting comfortably. Skin: Positive: Warm, Dry Head/Face: Positive: Normal Head/Face Inspection Eyes: Positive: Normal, EOMI Neck: Positive: Supple Abdomen Description: Positive: Nontender, Soft, Other: - Rectal exam performed with RNJarret. External nonthrombosed hemorrhoids noted. Rectum slightly infamed. No blood. ANDRES reveals a few small pieces of stool at the very tip of my finger in the rectal vault. Neurological: Positive: Normal, CN Intact II-III Psychiatric: Positive: Affect/Mood Appropriate Procedures - Sedation Patient Received Moderate/Deep Sedation with Procedure: No Abdominal Pain Fem Course/Dx - Course Course Of Treatment: Pt. presenting with rectal pain and constipation. Pt. arrived via EMS and when she was taken to room developed increased rectal pain. RNs were able to removed a large hard stool from rectum. No bleeding noted. Pt. has had relief of her pain is feeling much better when I examined her. She has a soft, benign abdominal exam. Rectal exam reveals small amount of hard stool proximally. No bleeding. No further intervention needed at this time. Pt. given colace in ED per daughter request. recommend continue stool softener as needed. To increase fluids and fiber. Can try apple or prune juice. Close f.u with pcp and return to er if sxs change or worsen. pt .understands and agrees with plan. - Diagnoses Differential Diagnosis: Positive: Bowel Obstruction, Constipation Provider Diagnoses: Impacted stool in rectum Discharge ED - Sign-Out/Discharge Documenting (check all that apply): Patient Departure - Discharge Plan Condition: Improved Disposition: HOME Patient Education Materials: Constipation (ED), High Fiber Diet (ED) Referrals: Yesika Rubio DO [Primary Care Provider] - Additional Instructions: Follow up with PCP within one week for recheck Increase fluids and fiber in diet Can try apple and prune juice Can use over the counter stool softener such as colace, dulcolax, or senokot Return to ER if symptoms change or worsen - Billing Disposition and Condition Condition: IMPROVED Disposition: Home - Attestation Statements Provider Attestation: I was available for consultation for this patient. I did not evaluate the patient or participate in any medical decision making or disposition decisions unless I am specifically named in the chart as having consulted on the patient. If I have consulted on the patient, please see my own ED note on the patient encounter. Harshil Rico MD
--- OUTSIDE RECORDS SUMMARY | 2019-02-25 08:25 | XMS REPORT | Continuity of Care Document ---
:1935 External Reference #:[id number] Author Name Denzel Smith MD (transmitted by agent of provider Becky Rose) Address [address] [place] [id number] Care Team Providers Name Role Phone Dina Harding MD - Family Care Team Information Hydro Operator [phone] Medicine Problems Active Problems Provider Date Atrial fibrillation Josh Up M.D. Onset: 09/05/2011 Dehydration Josh Up M.D. Onset: 09/05/2011 Benign essential hypertension Josh Up M.D. Onset: 09/05/2011 Chest pain Josh Up M.D. Onset: 09/05/2011 Chronic diastolic heart failure SARAH Mueller Onset: 09/16/2013 Paroxysmal atrial fibrillation Nurse Visit cc Onset: 12/11/2015 Localized, primary osteoarthritis Pete Crisostomo M.D. Onset: 02/04/2018 Strain of tendon of adductor longus Pete Crisostomo M.D. Onset: 02/04/2018 Closed fracture of phalanx of foot Denzel Smith MD Onset: 11/02/2018 Social History Type Date Description Comments Sex Unknown Tobacco Use Start: Unknown End: Former Cigarette Smoker Unknown Smoking Status Reviewed: 01/15/19 Former Cigarette Smoker ETOH Use Rarely consumes alcohol Recreational Drug Use Denies Drug Use Tobacco Use Start: Unknown End: Patient is a former quit in college Unknown smoker Exercise Type/Frequency Does not exercise Allergies, Adverse Reactions, Alerts Description No Known Drug Allergies Medications Active Medications SIG Qnty Indications Ordering Date Provider Knee Brace Adjustable left knee hinged 1units M17.12 Pete Crisostomo, 08/19 Hinged/Maximum knee brajose Major Support [facility] Eliquis 1 by mouth twice a 180tabs Josh Givens 09/03/2017 5mg Tablets day [facility] Digoxin take 1 tablet 90tabs Josh Givens 11/15/2014 125mcg Tablets daily [facility] Sotalol HCL (AF) 1/2 tablet by 100tabs Josh Givens 02/10/2012 80mg mouth twice a day [facility] Tablets Calcium 600 + D 1 po bid Josh Givens 09/05/2011 [facility] [id number] Tablets Tramadol HCL qid prn 100tabs Unknown 50mg Tablets Amoxicillin take 4 capsules by 30tabs Unknown 500mg mouth 1 hours Tablets prior to dental appointment Magnesium 1 every day Unknown 500mg Tablets Probiotic Acidophilus once a day Unknown Capsules Cymbalta 1 by mouth every Unknown 60mg Caps DR morning Part Cymbalta 1 by mouth every Unknown 30mg Caps DR night Part Acetaminophen 1 tablet by mouth Unknown 500mg every 12hours Tablets Ultram take 1 tablets Unknown 50mg Tablets every 4 hours as needed Medications Administered in Office Medication SIG Qnty Indications Ordering Provider Date Depomedrol 40MG SARAH Brunson 08/19/2018 Injection Depomedrol 40MG Pete Crisostomo M.D. 10/23/2016 Injection Inj, Regadenoson, 0.1 MG Jeffrey Flores M.D. 03/03/2015 Injection Inj, Regadenoson, 0.1 MG SARAH Mueller 03/03/2015 Injection Aminophylline Jeffrey Flores M.D. 03/03/2015 Injection Technetium TC 99M Jeffrey Flores M.D. 03/03/2015 Tetrofosmin, Per Unit Dose Up To 40 Millicuries Injection Technetium TC 99M SARAH Mueller 03/03/2015 Tetrofosmin, Per Unit Dose Up To 40 Millicuries Injection Depomedrol 80MG Juan Quinones, 07/05/2013 Injection RPA-C Immunizations Description No Information Available Vital Signs Date Vital Result Comment 01/15/2019 11:22am Height 61 inches 5'1" Weight 133.00 lb BP Systolic 130 mmHg BP Diastolic 90 mmHg Body Temperature 97.9 F BMI (Body Mass Index) 25.1 kg/m2 12/04/2018 11:14am Height 63 inches 5'3" Heart Rate 94 /min BP Systolic 126 mmHg BP Diastolic 90 mmHg Respiratory Rate 16 /min Body Temperature 98.1 F Pain Level 0 Results Test Date Facility Test Result H/L Range Note Laboratory test 08/31/2018 [facility] Digoxin 0.9 ng/ml Normal 0.8-2.0 1 [address] [place] [address] [phone] Basic Metabolic 08/31/2018 [facility] Sodium 139 mmol/L Normal 135-145 Panel [address] [place] [address] [phone] Potassium 4.6 mmol/L Normal 3.5-5.0 Chloride 103 mmol/L Normal 101-111 Co2 Carbon Dioxide 30 mmol/L Normal 22-32 Anion Gap 6 mmol/L Normal 2-11 Glucose 140 mg/dL High 70-100 Blood Urea Nitrogen 17 mg/dL Normal 6-24 Creatinine 0.83 mg/dL Normal 0.51-0.95 BUN/Creatinine Ratio 20.5 High 8-20 Calcium 10.0 mg/dL Normal 8.6-10.3 Egfr Non- 65.5 >60 Egfr 79.2 >60 2 Laboratory test 08/31/2018 [facility] Magnesium 2.1 mg/dL Normal 1.9-2.7 3 [address] [place] [address] [phone] 1 approx 2-3 weeks Copy Result to: DINA HARDINGS ([id number]) 2 Because ethnic data is not always readily available, this report includes an eGFR for both -Americans and non- Americans. The National Kidney Disease Education Program (NKDEP) does not endorse the use of the MDRD equation for patients that are not between the ages of 18 and 70, are , have extremes of body size, muscle mass, or nutritional status, or are non- or non-. According to the National Kidney Foundation, irrespective of diagnosis, the stage of the disease is based on the level of kidney function: Stage Description GFR(mL/min/1.73 m(2)) 1 Kidney damage with normal or decreased GFR 90 2 Kidney damage with mild decrease in GFR 60-89 3 Moderate decrease in GFR 30-59 4 Severe decrease in GFR 15-29 5 Kidney failure <15 (or dialysis) 3 approx 2-3 weeks Copy Result to: DINA HARDING ([id number]) Procedures Date Code Description Status 08/19/2018 96054 Inject/Drain Joint/Bursa Major W/O US Completed 07/21/2018 22705 EKG Tracing & Interpretation Completed 08/31/2016 [id number] Diabetic Retinal Eye Exam Completed 06/14/2014 [id number] Bone Mineral Density Test Completed Medical Devices Description No Information Available Encounters Type Date Location Provider Dx Diagnosis Office Visit 12/04/2018 [facility] Denzel Smith S92.424D Nondisp fx of dist 11:15a [facility] r great C.M.A. toe, 7thD Office Visit 11/02/2018 [facility] Denzel Smith S92.424A Nondisp fx of 8:30a Services Of distal phalanneftali of C.M.A. right great toe, init Office Visit 08/19/2018 [facility]opedic Pete Crisostomo M17.12 Unilateral primary 11:00a [facility] Of [facility] osteoarthritis, C.M.A. left knee Office Visit 07/21/2018 [facility] Josh Lambert0 Essential ( primary) 10:40a [facility] Up hypertension E61.2 Magnesium deficiency R94.31 Abnormal electrocardiogram [ECG] [EKG] I48.0 Paroxysmal atrial fibrillation E87.5 Hyperkalemia Assessments Date Code Description Provider 01/15/2019 S92.424D Nondisplaced fracture of distal phalanx Denzel Smith MD of right great toe, subsequent encounter for fracture with routine healing 12/04/2018 S92.424D Nondisplaced fracture of distal phalanx Denzel Smith MD of right great toe, subsequent encounter for fracture with routine healing 11/02/2018 S92.424A Nondisplaced fracture of distal phalanx Denzel Smith MD of right great toe, 08/19/2018 M17.12 Unilateral primary osteoarthritis, left Shima Arriola, PA knee 08/19/2018 M17.12 Unilateral primary osteoarthritis, left Pete Crisostomo M.D. knee 07/21/2018 I10 Essential (primary) hypertension Josh Up M.D. 07/21/2018 E61.2 Magnesium deficiency Josh Up M.D. 07/21/2018 R94.31 Abnormal electrocardiogram [ECG] [EKG] oJsh Up M.D. 07/21/2018 I48.0 Paroxysmal atrial fibrillation Josh Up M.D. 07/21/2018 E87.5 Hyperkalemia Josh Up M.D. Plan of Treatment Future Appointment(s):03/17/2019 11:15 am - Pete Crisostomo M.D. at [facility]/02/2019 2:45 pm - Scooter Stoddard M.D. at [facility]01/15/2019 - Denzel Smith, [id number] Nondisplaced fracture of distal phalanx of right great toe, subsequent encounter for fracture with routine healingFollow up:Follow Up: As needed Functional Status Description No Information Available Mental Status Description No Information Available Referrals Description No Information Available
--- OUTSIDE RECORDS SUMMARY | 2019-02-25 08:25 | XMS REPORT | Continuity of Care Document ---
:1935 External Reference #:[id number] Author Name Terrell Rodriguez NP (transmitted by agent of provider Anneliese Plascencia) Address [address], [place] [address] Care Team Providers Name Role Phone Fletcher Harding MD - Family Care Team Information Hvac Sales Representative [phone] Medicine Yesika Rubio DO - Family Care Team Information Hvac Sales Representative Medicine Problems Active Problems Provider Date Atrial [...] Former Cigarette Smoker Unknown Smoking Status Reviewed: 02/08/19 Former Cigarette Smoker ETOH Use Rarely consumes alcohol Recreational Drug Use Denies Drug Use Tobacco Use Start: Unknown End: Patient is a former quit in college Unknown smoker Exercise Type/Frequency Does not exercise Allergies, Adverse Reactions, Alerts Description No Known Drug Allergies Medications Active Medications SIG Qnty Indications Ordering Date Provider Knee Brace Adjustable left knee hinged 1units M17.12 Pete Crisostomo, 08/19 Hinged/Maximum Support knee brace [facility] Eliquis 1 by mouth twice 180tabs Josh Givens 09/03/2017 5mg Tablets a day [facility] Digoxin take 1 tablet 90tabs Josh Givens 11/15/2014 125mcg Tablets daily [facility] Sotalol HCL (AF) 1/2 tablet by 100tabs Josh Givens 02/10/2012 80mg mouth twice a [facility] Tablets day Calcium 600 + D 1 po bid Josh Givens 09/05/2011 [facility] [id number] Tablets Tramadol HCL qid prn 100tabs Unknown 50mg Tablets Magnesium 1 every day Unknown 500mg Tablets Probiotic Acidophilus once a day Unknown Capsules Cymbalta 1 by mouth every Unknown 60mg Caps DR morning Part Acetaminophen 1 tablet by Unknown 500mg mouth every Tablets 12hours Medications Administered in Office Medication SIG Qnty [...] Available Vital Signs Date Vital Result Comment 02/08/2019 10:33am Height 61 inches 5'1" Weight 134.00 lb Heart Rate 88 /min BP Systolic 124 mmHg BP Diastolic 82 mmHg BMI (Body Mass Index) 25.3 kg/m2 01/15/2019 11:22am Height 61 inches 5'1" Weight 133.00 lb BP Systolic 130 mmHg BP Diastolic 90 mmHg Body Temperature 97.9 F BMI (Body Mass Index) 25.1 kg/m2 Results Test Date Facility Test Result H/L Range Note Laboratory test 08/31/2018 [facility] Digoxin 0.9 ng/ml Normal 0.8-2.0 [address] [place] [address] [phone] Basic Metabolic 08/31/2018 [facility] Sodium 139 mmol/L Normal 135-145 Panel [address] [place] [address] [phone] Potassium 4.6 mmol/L Normal 3.5-5.0 Chloride 103 mmol/L Normal 101-111 Co2 Carbon Dioxide 30 mmol/L Normal 22-32 Anion Gap 6 mmol/L Normal 2-11 Glucose 140 mg/dL High 70-100 Blood Urea Nitrogen 17 mg/dL Normal 6-24 Creatinine 0.83 mg/dL Normal 0.51-0.95 BUN/Creatinine Ratio 20.5 High 8-20 Calcium 10.0 mg/dL Normal 8.6-10.3 Egfr Non- 65.5 >60 Egfr 79.2 >60 2 Laboratory test 08/31/2018 [facility] Magnesium 2.1 mg/dL Normal 1.9-2.7 3 [address] [place] [address] [phone] 1 approx 2-3 weeks Copy Result to: FLETCHER HARDING ([id number]) 2 Because ethnic data is not always [...] 3 approx 2-3 weeks Copy Result to: FLETCHER HARDING ([id number]) Procedures Date Code Description Status 08/19/2018 38728 Inject/Drain Joint/Bursa Major W/O US Completed 08/31/2016 [id number] Diabetic Retinal Eye Exam Completed 06/14/2014 [id number] Bone Mineral Density Test Completed Medical Devices Description No Information Available Encounters Type Date Location Provider Dx Diagnosis Office Visit 01/15/2019 [facility] Denzel Smith S92.424D Nondisp fx of 11:15a at [facility] dist phalanx of r great toe, 7thD Office Visit 12/04/2018 [facility] Denzel Smith S92.424D Nondisp fx of 11:15a at [facility] dist phalanx of r great toe, 7thD Office Visit 11/02/2018 [facility] Denzel Smith S92.424A Nondisp fx of 8:30a at [facility] distal phalanx of right great toe, init Office Visit 08/19/2018 [facility] Pete Crisostomo, M17.12 Unilateral 11:00a at [facility] Major primary osteoarthritis, left knee Assessments Date Code Description Provider 02/08/2019 Z79.899 Other [facility] (current) drug therapy Terrell Rodriguez NP 02/08/2019 G31.84 Mild cognitive impairment, so stated Terrell Rodriguez NP 02/08/2019 R25.1 Tremor, unspecified Terrell Rodriguez NP 01/15/2019 S92.424D Nondisplaced fracture of distal phalanx of Denzel Smith MD right great toe, subsequent encounter for fracture with routine healing 12/04/2018 S92.424D Nondisplaced fracture of distal phalanx of Denzel Smith MD right great toe, subsequent encounter for fracture with routine healing 11/02/2018 S92.424A Nondisplaced fracture of distal phalanx of Denzel Smith MD right great toe, 08/19/2018 M17.12 Unilateral primary osteoarthritis, left knee SARAH Brunson 08/19/2018 M17.12 Unilateral primary osteoarthritis, left knee Pete Crisostomo M.D. Plan of Treatment Future Appointment(s):05/11/2019 11:30 am - Terrell Rodriguez NP at [facility]03/17/2019 11:15 am - Pete Crisostomo M.D. at [facility]/08/2019 - Terrell Rodriguez, NPZ79.899 Other extermination inspector ( current) drug therapyFollow up:3 MONTHS with EricG31.84 Mild cognitive impairment, so cdncfbX83.1 Tremor, unspecified Functional Status Description No Information Available Mental Status Description No Information Available Referrals Description No Information Available
[2019-02-25] MEDS ORDERED: Docusate CAP* 100 MG PO ONE (08:28)
[2019-02-25 08:51] VITALS: BP 165/107
== END 2019-02-25 08:45 | disposition home or self-care (01) ==
LOC: ED 07:44
DX: K56.41 Fecal impaction (principal); I48.91 Unspecified atrial fibrillation; E78.00 Pure hypercholesterolemia, unspecified; I10 Essential (primary) hypertension; Z90.710 Acquired absence of both cervix and uterus; Z96.651 Presence of right artificial knee joint; Z87.891 Personal history of nicotine dependence; Z79.01 Long term (current) use of anticoagulants
CPT/HCPCS: 99282; A9270-GY

== ENCOUNTER 2019-06-07 17:29 | Emergency (ER) | payer MEDICARE, OTHER ==
--- OUTSIDE RECORDS SUMMARY | 2019-06-07 17:42 | XMS REPORT | Continuity of Care Document ---
:1935 External Reference #:[id number] Author Name Pete Crisostomo M.D. 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 [phone] Medicine Problems Active Problems Provider Date Atrial [...] Former Cigarette Smoker Unknown Smoking Status Reviewed: 05/19/19 Former Cigarette Smoker ETOH Use Rarely consumes alcohol Recreational Drug Use Denies Drug Use Tobacco Use Start: Unknown End: Patient is a former quit in college Unknown smoker Exercise Type/Frequency Does not exercise Allergies, Adverse Reactions, Alerts Description No Known Drug Allergies Medications Active Medications SIG Qnty Indications Ordering Date Provider Diclofenac Sodium Apply To The 200units M17.12 Pete Crisostomo, 05/05/2019 1% Affected Area On M.D. Gel Left Knee Up To Three Times Daily as Needed, 2-3 grams Knee Brace Adjustable left knee hinged 1units M17.12 Pete Crisostomo, 08/19 Hinged/Maximum knee brace M.D. Support Misc Digoxin take 1 tablet 90tabs Josh Givens 11/15/2014 125mcg Tablets daily Pedrito Up Sotalol HCL (AF) 1/2 tablet by 90tabs Josh Givens 02/10/2012 80mg mouth twice a Pedrito Up Tablets day Calcium 600 + D 1 po bid Josh Givens 09/05/2011 Pedrito Up [id number] Tablets Tramadol HCL qid prn 100tabs Unknown 50mg Tablets Magnesium 1 every day Unknown 500mg Tablets Probiotic Acidophilus once a day Unknown Capsules Cymbalta 1 by mouth every Unknown 60mg Caps DR morning Part Acetaminophen 1 tablet by Unknown 500mg mouth every Tablets 12hours Colace 1 Unknown 100mg Capsules [facility] Vitamin B12 please take one Unknown 1000mcg daily Tablets Eliquis 1 by mouth twice Z79.01 Unknown 5mg Tablets a day Vitamin B 12 Unknown History Medications Voltaren apply to affected 200gm M17.12 Pete Crisostomo, 03/17/2019 - 1% Gel area up to three M.D. 05/05/2019 times daily on left knee as needed Eliquis 1 tab by mouth 90tabs Z79.01 Roxy Mayfield NP 03/09/2019 - 2.5mg every 12 hours 05/19/2019 Tablets Medications Administered in Office Medication SIG Qnty [...] Available Vital Signs Date Vital Result Comment 05/19/2019 10:18am Height 63 inches 5'3" Heart Rate 90 /min BP Systolic 110 mmHg BP Diastolic 60 mmHg Respiratory Rate 18 /min Body Temperature 97.2 F Pain Level 8 05/11/2019 11:37am Height 63 inches 5'3" Weight 135.00 lb Heart Rate 67 /min BP Systolic Sitting 132 mmHg BP Diastolic Sitting 76 mmHg BMI (Body Mass Index) 23.9 kg/m2 Results Test Acquired Date Facility Test Result H/L Range Note Laboratory test 02/08/2019 [facility] Syphillis Igg Negative Negative finding [address] W/[place] [address] [phone] TSH (Thyroid Stim Horm) 1.32 mcIU/mL Normal 0.34-5.60 Vitamin B12 188 pg/mL Normal 180-914 1 Methylmalonic Acid 0.31 nmol/mL <=0.40 2 CBC Auto 02/08/2019 [facility] White Blood 7.3 10^3/uL Normal 3.5-10.[address] [place] [address] [phone] Red Blood Count 4.20 10^6/uL Normal 3.70-4.87 Hemoglobin 13.0 g/dL Normal 12.0-16.0 Hematocrit 38 % Normal 35-47 Mean Corpuscular Volume 91 fL Normal 80-97 Mean Corpuscular Hemoglobin 31 pg Normal 27-31 Mean Corpuscular HGB Conc 34 g/dL Normal 31-36 Red Cell Distribution Width 14 % Normal 10-15 Platelet Count 293 10^3/uL Normal 150-450 Mean Platelet Volume 8.2 fL Normal 7.4-10.4 Abs Neutrophils 5.4 10^3/uL Normal 1.5-7.7 Abs Lymphocytes 1.2 10^3/uL Normal 1.0-4.8 Abs Monocytes 0.6 10^3/uL Normal 0-0.8 Abs Eosinophils 0.1 10^3/uL Normal 0-0.6 Abs Basophils 0.0 10^3/uL Normal 0-0.2 Abs Nucleated RBC 0.0 10^3/uL Granulocyte % 73.8 % Lymphocyte % 16.3 % Monocyte % 7.7 % Eosinophil % 1.7 % Basophil % 0.5 % Nucleated Red Blood Cells % 0.0 Comp Metabolic 02/08/2019 [facility] Sodium 140 mmol/L Normal 135-145 Panel [address] [place] [address] [phone] Potassium 4.9 mmol/L Normal 3.5-5.0 Chloride 103 mmol/L Normal 101-111 Co2 Carbon Dioxide 29 mmol/L Normal 22-32 Anion Gap 8 mmol/L Normal 2-11 Glucose 100 mg/dL Normal 70-100 Blood Urea Nitrogen 13 mg/dL Normal 6-24 Creatinine 0.77 mg/dL Normal 0.51-0.95 BUN/Creatinine Ratio 16.9 Normal 8-20 Calcium 9.7 mg/dL Normal 8.6-10.3 Total Protein 6.8 g/dL Normal 6.4-8.9 Albumin 4.1 g/dL Normal 3.2-5.2 Globulin 2.7 g/dL Normal 2-4 Albumin/Globulin Ratio 1.5 Normal 1-3 Total Bilirubin 0.60 mg/dL Normal 0.2-1.0 Alkaline Phosphatase 83 U/L Normal 34-104 Alt 9 U/L Normal 7-52 Ast 12 U/L Low 13-39 Egfr Non- 71.4 >60 Egfr 86.4 >60 3 Laboratory test 02/08/2019 [facility] Digoxin 0.9 ng/ml Normal 0.8-2.0 finding [address] [place] [address] [phone] 1 Normal Range 180 to 914 Indeterminate Range 145 to 180 Deficient Range <145 2 ADDITIONAL INFORMATION This test was developed and its performance characteristics determined by [facility] in a manner consistent with CLIA requirements. This test has not been cleared or approved by the U.S. Food and Drug Administration. Test Performed by: [facility] [address] [address] Space Studies Faculty Member: Antonio Lira M.D. Ph.D.; CLIA# [id number] 3 Because ethnic data is not always readily [...] 15-29 5 Kidney failure <15 (or dialysis) Procedures Date Code Description Status 08/31/2016 784354774 Diabetic Retinal Eye Exam Completed 06/14/2014 212061484 Bone Mineral Density Test Completed Medical Devices Description No Information Available Encounters Type Date Location Provider Dx Diagnosis Office Visit 03/17/2019 [facility] Shima M17.12 Unilateral primary 9:00a at [place] SARAH Arriola osteoarthritis, left knee Office Visit 03/09/2019 [facility] Roxy Mayfield, I48.0 Paroxysmal atrial 3:00p [facility] COMPLIANCE REVIEWER fibrillation I10 Essential (primary) hypertension 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 Office Visit 02/08/2019 10:30a [facility] Terrell Rodriguez, 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 05/11/2019 D51.9 Vitamin B12 deficiency anemia, unspecified Terrell Rodriguez, BRYANT 05/11/2019 G31.84 Mild cognitive impairment, so stated Terrell Rodriguez, BRYANT 05/11/2019 R25.1 Tremor, unspecified Terrell Rodriguez, BRYANT 03/17/2019 M17.12 Unilateral primary osteoarthritis, left knee SARAH Brunson 03/17/2019 M17.12 Unilateral primary osteoarthritis, left knee Pete Crisostomo M.D. 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 Terrell Rodriguez NP 02/08/2019 G31.84 Mild cognitive impairment, so stated Terrell Rodriguez NP 02/08/2019 R25.1 Tremor, unspecified Terrell Rodriguez, BRYANT 01/15/2019 S92.424D Nondisplaced fracture of distal phalanx of Denzel Smith MD right great toe, subsequent encounter for fracture with routine healing 12/04/2018 S92.424D Nondisplaced fracture of distal phalanx of Denzel Smith MD right great toe, subsequent encounter for fracture with routine healing Plan of Treatment Future Appointment(s):07/26/2019 11:30 am - Terrell Rodriguez NP at [facility]07/08/2019 2:00 pm - Josh Up M.D. at [place] [facility]05/19/2019 - Pete Crisostomo M.D.M17.12 Unilateral primary osteoarthritis, left kneeFollow up:As Needed Functional Status Description No Information Available Mental Status Description No Information Available Referrals Description No Information Available
--- OUTSIDE RECORDS SUMMARY | 2019-06-07 17:42 | XMS REPORT | Continuity of Care Document ---
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 Support Misc Digoxin take 1 tablet 90tabs Josh Givens 11/15/2014 125mcg Tablets daily Pedrito Up Sotalol HCL (AF) 1/2 tablet by 90tabs Josh Givens 02/10/2012 80mg mouth twice a Pedrito Up Tablets day Calcium 600 + D 1 po bid Josh Givens 09/05/2011 Pedrito Up [id number] Tablets Tramadol HCL qid prn 100tabs Unknown 50mg Tablets Magnesium 1 every day Unknown 500mg Tablets Probiotic Acidophilus once a day Unknown Capsules Cymbalta 1 by mouth every Unknown 60mg Caps DR morning Part Acetaminophen 1 tablet by Unknown 500mg mouth every Tablets 12hours Colace 1 Unknown 100mg Capsules [facility] Vitamin B12 please take one Unknown 1000mcg daily Tablets History Medications Voltaren apply to affected 200gm M17.12 Pete Crisostomo, 03/17/2019 - 1% Gel area up to three M.D. 05/05/2019 times daily on left knee as needed Medications Administered in Office Medication [...] Available Vital Signs Date Vital Result Comment 05/11/2019 11:37am Height 63 inches 5'3" Weight 135.00 lb Heart Rate 67 /min BP Systolic Sitting 132 mmHg BP Diastolic Sitting 76 mmHg BMI (Body Mass Index) 23.9 kg/m2 03/17/2019 11:03am Height 63 inches 5'3" Weight 135.00 lb Heart Rate 100 /min BP Systolic 124 mmHg BP Diastolic 88 mmHg BMI (Body Mass Index) 23.9 kg/m2 Results Test Acquired Date Facility Test Result H/L Range Note Laboratory test 02/08/2019 [facility] Syphillis Igg Negative Negative finding [address] [place] [address] [phone] TSH (Thyroid Stim Horm) 1.32 mcIU/mL Normal 0.34-5.60 Vitamin B12 188 pg/mL Normal 180-914 1 Methylmalonic Acid 0.31 nmol/mL <=0.40 2 CBC Auto 02/08/2019 [facility] White Blood 7.3 10^3/uL Normal 3.5-10.[address] [place] [address] [phone] Red Blood Count 4.20 10^6/uL Normal 3.70-4.87 [...] Blood Cells % 0.0 Comp Metabolic 02/08/2019 [facility] Sodium 140 mmol/L Normal 135-145 Panel [address] [place] [address] [phone] Potassium 4.9 mmol/L Normal 3.5-5.0 Chloride 103 [...] Egfr 86.4 >60 3 Laboratory test 02/08/2019 [facility] Digoxin 0.9 ng/ml Normal 0.8-2.0 finding [address] [place] [address] [phone] 1 Normal Range 180 to 914 Indeterminate Range 145 to 180 Deficient Range <145 2 ADDITIONAL INFORMATION This test was developed and its performance characteristics determined by [facility] in a manner consistent with CLIA requirements. This test has not been cleared or approved by the U.S. Food and Drug Administration. Test Performed by: [address] [address] Social Work Associate: Antonio Lira M.D. Ph.D.; [facility]# [id number] 3 Because ethnic data is not always [...] dialysis) Procedures Date Code Description Status 08/31/2016 [id number] Diabetic Retinal Eye Exam Completed 06/14/2014 [id number] Bone Mineral Density Test Completed Medical Devices Description No Information Available Encounters Type Date Location Provider Dx Diagnosis Office Visit [facility]/17/2019 [facility] Ronqu[facility] M17.12 Unilateral primary 9:00a at [place] osteoarthritis, left knee Office Visit 03/09/2019 [facility] Roxy Mayfield, I48.0 Paroxysmal atrial 3:00p [facility] MARZIPAN MAKER fibrillation I10 Essential (primary) hypertension Z79.01 [facility] (current) use of anticoagulants Office Visit 02/08/2019 10:30a [facility] Terrell Rodriguez, 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[facility] MARZIPAN MAKER (current) drug therapy G31.84 Mild cognitive impairment, so stated R25.1 Tremor, unspecified Office Visit 01/15/2019 11:15a [facility] Denzel Smith, S92.424D Nondisp fx of at [place] dist phalanx of r great toe, 7thD Office Visit 12/04/2018 11:15a [place] Dwight Smith S92.424D Nondisp fx of at [place] dist phalanx of r great toe, 7thD Assessments Date Code Description Provider 05/11/2019 D51.9 Vitamin B12 deficiency anemia, unspecified Terrell Rodriguez NP 05/11/2019 G31.84 Mild cognitive impairment, so stated Terrell Rodriguez NP 05/11/2019 R25.1 Tremor, unspecified Terrell Rodriguez NP 03/17/2019 M17.12 Unilateral primary osteoarthritis, left knee SARAH Brunson 03/17/2019 M17.12 Unilateral primary osteoarthritis, left knee Pete Crisostomo M.D. 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 at [facility] at [facility]07/08/2019 2:00 pm - Josh Up M.D. at [facility]05/11/2019 - Terrell Rodriguez NPD51.9 Vitamin B12 deficiency anemia , unspecifiedFollow up:2-3 MONTHSRecommendations:We will contact your PCP to order B12 injections once a week for four weeks. I'll repeat the MOCA test in 2 -3 MONTHS.G31.84 Mild cognitive impairment, so vfykdqX34.1 Tremor, unspecified Functional Status Description No Information Available Mental Status Description No Information Available Referrals Description No Information Available
--- NOTE | 2019-06-07 17:54 | ED ---
Adult Trauma - HPI Summary HPI Summary: This pt is an 84 y/o female presenting to [facility] via EMS for a fall today. Pt reports she was leaning on a railing trying to see down when she fell sideways down 4 steps and landed on the floor on her back. She is unsure if she had head strike. Denies LOC. Per pt was c/o neck pain on scene. EMS placed a C- collar on patient STOCK PITCHER. Patient also reports upper back pain. Denies hip pain, leg pain, abd pain, chest pain, SOB. - History of Current Complaint Chief Complaint: EDBackInjuryPain Stated Complaint: FALL PER EMS Time Seen by Provider: 06/07/19 17:43 Hx Obtained From: Patient, Family/Food Counter Attendant - Mechanism of Injury: Fall Loss of Consciousness: no loss of consciousness Onset/Duration: Started Minutes Ago, Still Present Onset of Pain: Immediate Current Severity: Severe Pain Intensity: 8 Pain Scale Used: 0-10 Numeric Location: Back - upper Aggravating Factor(s): Movement Alleviating Factor(s): Rest Associated Signs & Symptoms: Positive: Other: - POSITIVE: neck pain, upper back pain. NEGATIVE: nhip pain, leg pain. Negative: SOB, Chest Pain, Abdominal Pain , Fever, Loss of Consciousness - Allergy/Home Medications Allergies/Adverse Reactions: Allergies Allergy/AdvReac Type Severity Reaction Status Date / Time No Known Allergies Allergy Verified 02/25/19 08:30 Home Medications: Home Medications Calcium Carbonate/Vitamin D3 [Calcium 500 + Vit D Caplet] 1 each PO QAM [History Confirmed 06/07/19] PMH/Surg Hx/FS Hx/Imm Hx Endocrine/Hematology History: Reports: Hx Anticoagulant Therapy - xarelto 20mg PO daily Denies: Hx Diabetes, Hx Thyroid Disease Cardiovascular History: Reports: Hx Angina, Hx Atrial Fibrillation, Hx Hypercholesterolemia, Hx Hypertension Denies: Hx Coronary Artery Disease, Hx Myocardial Infarction, Hx Pacemaker/ ICD, Hx Valvular Heart Disease Respiratory History: Denies: Hx Asthma, Hx Chronic Obstructive Pulmonary Disease (COPD) Comment Only: Other Respiratory Problems/Disorders - HIATAL HERNIA REPAIR GI History: Reports: Other GI Disorders - recurent unexplained diarrhea Denies: Hx Ulcer History: Reports: Other Problems/Disorders - occasional incontinence Denies: Hx Renal Disease Musculoskeletal History: Reports: Hx Arthritis, Hx Rheumatoid Arthritis, Hx Osteoporosis, Other Musculoskeletal History - 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 (surgery for ...?) Sensory History: Reports: Hx Contacts or Glasses Denies: Hx Hearing Aid Opthamlomology History: Reports: Hx Contacts or Glasses Neurological History: Reports: Hx Headaches, Other Neuro Impairments/Disorders - neuropathy, balance problem Denies: Hx Dementia, Hx Seizures Psychiatric History: Reports: Hx Depression - Denies: Hx Eating Disorder, Hx Panic Disorder, Hx Substance Abuse - Cancer History Hx Chemotherapy: No Hx Radiation Therapy: No - Surgical History Surgical History: Yes Surgery Procedure, Year, and Place: HYSTERECTOMY,KNEE REPLACEMENT RT SIDE, HIATAL HERNIA REPAIR Hx Anesthesia Reactions: No - Immunization History Date of Tetanus Vaccine: Unsure Date of Influenza Vaccine: up to date Infectious Disease History: No Infectious Disease History: Denies: Hx Clostridium Difficile, Hx Hepatitis, Hx Human Immunodeficiency Virus (HIV), Hx of Known/Suspected MRSA, Hx Shingles, Hx Tuberculosis, Hx Known/ Suspected VRE, Hx Known/Suspected VRSA, History Other Infectious Disease, Traveled Outside the [place] in Last 30 Days - Family History Known Family History: Positive: Cardiac Disease, Hypertension - Social History Alcohol Use: None Alcohol Amount: 1/2 glass of wine Hx Substance Use: No Substance Use Type: Reports: None Hx Tobacco Use: Yes - not currently Smoking Status (MU): Former Smoker Review of Systems Negative: Fever Negative: Chest Pain Negative: Shortness Of Breath Negative: Abdominal Pain Musculoskeletal: Other - POSITIVE: upper back pain, neck pain Negative: Other - NEGATIVE: hip pain, leg pain Neurological: Other - NEGATIVE: LOC All Other Systems Reviewed And Are Negative: Yes Physical Exam - Summary Physical Exam Summary: VITAL SIGNS: Reviewed. GENERAL: Patient is a well-developed and nourished female who is lying comfortable in the stretcher. Patient is not in any acute respiratory distress. HEAD AND FACE: No signs of trauma. No ecchymosis, hematomas or skull depressions. No sinus tenderness. EYES: PERRLA, EOMI x 2, No injected conjunctiva, no nystagmus. EARS: Hearing grossly intact. Ear canals and tympanic membranes are within normal limits. MOUTH: Oropharynx within normal limits. NECK: Supple, trachea is midline, no adenopathy, no JVD, no carotid bruit. Patient has tenderness in the C-spine. CHEST: Symmetric, no tenderness at palpation LUNGS: Clear to auscultation bilaterally. No wheezing or crackles. CVS: Regular rate and rhythm, S1 and S2 present, no murmurs or gallops appreciated. ABDOMEN: Soft, non-tender. No signs of distention. No rebound, no guarding, and no masses palpated. Bowel sounds are normal. MSK: FROM in all major joints, no edema, no cyanosis or clubbing. Patient has tenderness in the T-spine. NEURO: Alert and oriented x 3. No acute neurological deficits. Speech is normal and follows commands. SKIN: Dry and warm. GCS: 15. Triage Information Reviewed: Yes Vital Signs On Initial Exam: Initial Vitals Temp Pulse Resp BP Pulse Ox 98.6 F 59 19 154/84 100 06/07/19 17:39 06/07/19 17:39 06/07/19 17:39 06/07/19 17:39 06/07/19 17:39 Vital Signs Reviewed: Yes - Juliet Coma Scale Best Eye Response: 4 - Spontaneous Best Motor Response: 6 - Obeys Commands Best Verbal Response: 5 - Oriented Coma Scale Total: 15 Procedures - Sedation Patient Received Moderate/Deep Sedation with Procedure: No Diagnostics - Vital Signs Vital Signs Temp Pulse Resp BP Pulse Ox 06/07/19 17:39 98.6 F 59 19 154/84 100 - Laboratory Lab Statement: Any lab studies that have been ordered have been reviewed, and results considered in the medical decision making process. - CT Brain CT CT Interpretation Completed By: Radiologist Summary of CT Findings: Impression: No acute intracranial abnormality. ED physician has reviewed this report. Cervical Spine CT CT Interpretation Completed By: Radiologist Summary of CT Findings: Impression: No acute cervical spine fracture. Please refer to report for CT of the thoracic spine for additional details. ED physician has reviewed this report. Thoracic Spine CT CT Interpretation Completed By: Radiologist Summary of CT Findings: Impression: 1. Moderate T2 compression fracture is acute. Osseous retropulsion measures 4 mm. 2. Nondisplaced fractures involving the bilateral articular facets of T2. 3. Mildly displaced fracture involving the spinous process of T1. 4. Transverse process fractures involving T2 on the left and T9 on the right. 5. Nondisplaced fractures involving the right posterior 7th, 8th and 10th ribs best demonstrated on coronal imaging. 6. Questionable trace right-sided pneumothorax, follow-up may be considered. ED physician has reviewed this report. Lumbar Spine CT CT Interpretation Completed By: Radiologist Summary of CT Findings: Impression: Nondisplaced fracture involving the right transverse process of L2. ED physician has reviewed this report. Re-Evaluation - Re-Evaluation First Eval Re-Evaluation Time: 21:30 Comment: Patient and family agreeable with plan for transfer. Adult Trauma Course/Dx - Course Assessment/Plan: This pt is an 84 y/o female presenting to [facility] via EMS for a fall today. Pt reports she was leaning on a railing trying to see down when she fell sideways down 4 steps and landed on the floor on her back. She is unsure if she had head strike. Denies LOC. Per pt was c/o neck pain on scene. EMS placed a C-collar on patient STOCK PITCHER. Patient also reports upper back pain. Denies hip pain, leg pain, abd pain, chest pain, SOB. T spine CT Impression: 1. Moderate T2 compression fracture is acute. Osseous retropulsion measures 4 mm. 2. Nondisplaced fractures involving the bilateral articular facets of T2.3. Mildly displaced fracture involving the spinous process of T1.4. Transverse process fractures involving T2 on the left and T9 on the right. 5. Nondisplaced fractures involving the right posterior 7th, 8th and 10th ribs best demonstrated on coronal imaging. 6. Questionable trace right-sided pneumothorax , follow-up may be considered. L spine CT Impression: Nondisplaced fracture involving the right transverse process of L2. Head CT Impression: No acute intracranial abnormality. C spine CT impression: No acute cervical spine fracture. I discussed the case with the transfer sitting up with Dr. Sanchez from the [facility] [address], and he accepted the patient for transfer. The patient is hemodynamically stable, alert, and oriented 3. - Diagnoses Provider Diagnoses: Compression fracture of T2 vertebra, T1 vertebral fracture, Fracture of T9 vertebra, L2 vertebral fracture, Multiple fractures of ribs of right side - Physician Notifications Instructed by Provider To: Transfer - I discussed the patients case with the transfer center at [facility] concerning the need for transfer for neurosurgery and trauma interventions as the patient has multiple vertebral fractures in the thoracic and lumbar spine. Dr. Sanchez from [facility] accepts the patient for transfer [[id number]]. 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 by Dr. Sanchez. - Discharge Plan Condition: Stable Disposition: TRANS HIGHER LVL OF CARE FAC Referrals: Yesika Rubio DO [Primary Care Provider] - - Billing Disposition and Condition Condition: STABLE Disposition: Trans Higher Lvl of Care Fac - Attestation Statements Document Initiated by Lillyibe: Yes Documenting Scribe: Mary Carmen Bernal Provider For Whom Jimenez is Documenting (Include Credential): Capo Ford MD Scribe Attestation: Yoselyn Torres Natalie George, scribed for Capo Ford MD on 06/07/19 at 2207. Scribe Documentation Reviewed: Yes Provider Attestation: The documentation as recorded by the Yoselyn peters Natalie George accurately reflects the service I personally performed and the decisions made by Capo oneal MD Status of Scribe Document: Viewed
[2019-06-07] MEDS ORDERED: traMADol TAB* 50 MG PO ONE (21:03)
[2019-06-07 22:13] LABS: ABS Eosinophils 0.1 10^3/ul (0-0.6); ABS Lymphocytes 0.8 10^3/ul (1.0-4.8); ABS Monocytes 0.6 10^3/ul (0-0.8); ABS Neutrophils 7.9 10^3/ul (1.5-7.7); Eosinophil % 0.6 %; Hematocrit 34 % (35-47); Hemoglobin 11.8 g/dL (12.0-16.0); Lymphocyte % 8.2 %; Mean Corpuscular HGB Conc 35 g/dL (31-36); Mean Corpuscular Hemoglobin 32 pg (27-31); Mean Corpuscular Volume 92 fL (80-97); Mean Platelet Volume 7.6 fL (7.4-10.4); Platelet Count 210 10^3/uL (150-450); Red Blood Count 3.69 10^6 /uL (3.70-4.87); Red Cell Distribution Width 14 % (10-15); White Blood Count 9.3 10^3/uL (3.5-10.8)
[2019-06-07 22:29] LABS: Albumin 3.7 g/dL (3.2-5.2); Albumin/Globulin Ratio 1.4 (1-3); BUN/Creatinine Ratio 16.7 (8-20); C Reactive Protein 1.11 mg/L (<8.01); Calcium 8.9 mg/dL (8.6-10.3); EGFR Non-African American 85.1 (>60); Globulin 2.7 g/dL (2-4); Potassium 3.8 mmol/L (3.5-5.0); Total Bilirubin 0.8 mg/dL (0.2-1.0); Total Protein 6.4 g/dL (6.4-8.9)
[2019-06-07 22:41] VITALS: BP 160/116
== END 2019-06-07 22:40 | disposition short-term general hospital (02) ==
LOC: ED 17:29
DX: S22.020A Wedge compression fracture of second thoracic vertebra, initial encounter for closed fracture (principal); S22.010A Wedge compression fracture of first thoracic vertebra, initial encounter for closed fracture; S22.070A Wedge compression fracture of T9-T10 vertebra, initial encounter for closed fracture; S32.020A Wedge compression fracture of second lumbar vertebra, initial encounter for closed fracture; S22.41XA Multiple fractures of ribs, right side, initial encounter for closed fracture; W10.9XXA Fall (on) (from) unspecified stairs and steps, initial encounter; Y93.89 Activity, other specified; Y92.9 Unspecified place or not applicable; I10 Essential (primary) hypertension; F32.9 Major depressive disorder, single episode, unspecified; Z79.01 Long term (current) use of anticoagulants; Z79.899 Other long term (current) drug therapy; Z96.651 Presence of right artificial knee joint; Z87.891 Personal history of nicotine dependence
CPT/HCPCS: 36415; 70450; 72125; 72128; 72131; 80053; 85025; 86140; 99284; A9270-GY

== ENCOUNTER 2019-06-15 12:14 | Emergency (ER) | payer MEDICARE, OTHER ==
--- OUTSIDE RECORDS SUMMARY | 2019-06-15 12:19 | XMS REPORT | Continuity of Care Document ---
:1935 External Reference #:[id number] Author Name Yesika Rubio DO Address [address] [place] [address] Problems Active Problems Provider Date Essential hypertension Onset: 08/11/2018 Gallstone Onset: 01/28/2017 Left ventricular hypertrophy Onset: 11/16/2014 Paroxysmal atrial fibrillation Onset: 08/22/2011 Hypercholesterolemia Onset: 03/06/2010 Hypertensive disorder Onset: 06/05/2009 Hearing loss Hoang Serna MD Onset: 04/29/2019 Social History Type Date Description Comments Sex Unknown Tobacco Use Start: Unknown End: Patient is a former smoker Smoking Status Reviewed: 03/23/19 Patient is a former smoker Allergies, Adverse Reactions, Alerts Active Allergies Reaction Severity Comments Date Bactrim felt out of body Moderate 01/01/2019 Medications Active Medications SIG Qnty Indications Ordering Date Provider Diclofenac Sodium apply to affected 300gm Alisa Yaritza, 05/10/2019 1% joint twice daily Gel Aldactone 1 tab by mouth Yesika 03/23/2019 25mg Tablets every day Karnow, DO Metamucil Smooth daily Yesika 03/23/2019 Texture Sugar Free Marshallnocarmita, DO 58.6% Powder Hearing Test dx: decreased Yesika 03/23/2019 hearing and Karnow, DO hearing loss Probiotic Dina Harding MD 01/18/2019 Capsules Calcium Dina Harding MD 01/18/2019 600mg Tablets Magnesium Dina Harding MD 01/18/2019 300mg Capsules Lidocaine External; Apply 90units Unknown 07/13/2018 5% Patches Patch Externally Daily, May Use Up To 3 Patches Per Day. Vitamin B12 1 daily Oral Unknown 07/13/2018 500mcg Tablets Tramadol HCL 1 tab 4 times a 360tabs Yesika 06/02/2018 50mg day as needed Marshallnow, DO Tablets oral; code d: chronic pain Duloxetine HCL 1 daily oral 90caps Hoang Serna MD 05/18/[address] Part Acetaminophen Extra 1 every 6 hours Unknown 03/13/2016 Strength prn Oral 500mg Tablets Sotalol HCL 0.5 tab twice 30tabs Unknown 12/02/2012 80mg daily Oral Tablets Eliquis 1tab po bid Unknown 2.5mg Tablets Digox 1 tab by mouth Unknown 125mcg Tablets every day Medications Administered in Office Medication SIG Qnty Indications Ordering Provider Date Therapeutic, Prophylactic Or Nurse 06/07/2019 Diagnostic Injection Subq/Im Injection Therapeutic, Prophylactic Or Nurse 05/31/2019 Diagnostic Injection Subq/Im Injection Therapeutic, Prophylactic Or Nurse 05/24/2019 Diagnostic Injection Subq/Im Injection DTaP Vaccine Younger Than 7 Unknown 02/10/2011 (Infanrix) Injection Immunizations CPT Code Status Date Vaccine Lot # [id number] Given 01/12/2019 Flu High Dose [id number] Given 06/07/2014 Tdap - Boostrix/Adacel [id number] Given 06/07/2014 Prevnar 13 Vital Signs Date Vital Result Comment 03/23/2019 10:56am BP Systolic 110 mmHg BP Diastolic 74 mmHg Height 60.75 inches 5'0.75" Weight 132.00 lb Heart Rate 73 /min Body Temperature 97.7 F O2 % BldC Oximetry 94 % BMI (Body Mass Index) 25.1 kg/m2 Right Visual Acuity Distance 20/25 Left Visual Acuity Distance 20/25 Both Visual Acuity Distance 20/25 01/12/2019 11:10am BP Systolic 118 mmHg BP Diastolic 78 mmHg Height 61.75 inches 5'1.75" Weight 138.00 lb Heart Rate 83 /min Body Temperature 98.3 F O2 % BldC Oximetry 97 % BMI (Body Mass Index) 25.4 kg/m2 Right Visual Acuity Distance 20/40 Left Visual Acuity Distance 20/40 Both Visual Acuity Distance 20/30 Results Test Acquired Date Facility Test Result H/L Range Note CBC Auto 06/07/2019 [facility] White Blood 9.3 10^3/uL Normal 3.5-10.[address] [place], [place] [id number] [phone] Red Blood Count 3.69 10^6/uL Low 3.70-4.87 Hemoglobin 11.8 g/dL Low 12.0-16.0 Hematocrit 34 % Low 35-47 Mean Corpuscular Volume 92 fL Normal 80-97 Mean Corpuscular Hemoglobin 32 pg High 27-31 Mean Corpuscular HGB Conc 35 g/dL Normal 31-36 Red Cell Distribution Width 14 % Normal 10-15 Platelet Count 210 10^3/uL Normal 150-450 Mean Platelet Volume 7.6 fL Normal 7.4-10.4 Abs Neutrophils 7.9 10^3/uL High 1.5-7.7 Abs Lymphocytes 0.8 10^3/uL Low 1.0-4.8 Abs Monocytes 0.6 10^3/uL Normal 0-0.8 Abs Eosinophils 0.1 10^3/uL Normal 0-0.6 Abs Basophils 0.0 10^3/uL Normal 0-0.2 Abs Nucleated RBC 0.0 10^3/uL Granulocyte % 84.8 % Lymphocyte % 8.2 % Monocyte % 6.1 % Eosinophil % 0.6 % Basophil % 0.3 % Nucleated Red Blood Cells % 0.0 Comp Metabolic 06/07/2019 [facility] Sodium 136 mmol/L Normal 135-[address] [place] [address] [phone] Potassium 3.8 mmol/L Normal 3.5-5.0 Chloride 101 mmol/L Normal 101-111 Co2 Carbon Dioxide 28 mmol/L Normal 22-32 Anion Gap 7 mmol/L Normal 2-11 Glucose 101 mg/dL High 70-100 Blood Urea Nitrogen 11 mg/dL Normal 6-24 Creatinine 0.66 mg/dL Normal 0.51-0.95 BUN/Creatinine Ratio 16.7 Normal 8-20 Calcium 8.9 mg/dL Normal 8.6-10.3 Total Protein 6.4 g/dL Normal 6.4-8.9 Albumin 3.7 g/dL Normal 3.2-5.2 Globulin 2.7 g/dL Normal 2-4 Albumin/Globulin Ratio 1.4 Normal 1-3 Total Bilirubin 0.80 mg/dL Normal 0.2-1.0 Alkaline Phosphatase 69 U/L Normal 34-104 Alt 14 U/L Normal 7-52 Ast 18 U/L Normal 13-39 Egfr Non- 85.1 >60 Egfr 103.0 >60 1 Laboratory test 06/07/2019 [facility] C Reactive 1.11 mg/L Normal <8.[address] [place] [address] [phone] CBC Auto Diff 02/08/2019 [facility] White Blood 7.3 Normal 3.5 -10.[address] Count 10^3/[place] [address] [phone] Red Blood Count 4.20 10^6/uL Normal 3.70-4.87 [...] % Nucleated Red Blood Cells % 0.0 Laboratory 02/08/2019 [facility] TSH (Thyroid 1.32 Normal 0.34 -5.[address] Horm) mcIU/mL [place], [place] [id number] [phone] Vitamin B12 188 pg/mL Normal 180-914 2 Comp Metabolic 02/08/2019 [facility] Sodium 140 mmol/L Normal 135-[address] [place] [address] [phone] Potassium 4.9 mmol/L Normal 3.5-5.0 Chloride 103 [...] Egfr 86.4 >60 3 Laboratory test 02/08/2019 [facility] Digoxin 0.9 ng/ml Normal 0.8-2.[address] [place] [address] [phone] Syphillis Igg W/Reflex RPR Negative Negative Methylmalonic Acid 0.31 nmol/mL <=0.40 4 1 Because ethnic data is not always readily [...] 15-29 5 Kidney failure <15 (or dialysis) 2 Normal Range 180 to 914 Indeterminate Range 145 to 180 Deficient Range <145 3 Because ethnic data is not always [...] 15-29 5 Kidney failure <15 (or dialysis) 4 ADDITIONAL INFORMATION This test was developed and its performance characteristics determined by [facility] in a manner consistent with CLIA requirements. This test has not been cleared or approved by the U.S. Food and Drug Administration. Test Performed by: [place] [id number] [employer] Back Tender: Antonio Lira M.D. Ph.D.; CLIA# [id number] Procedures Date Code Description Status 06/07/2019 77238 Therapeutic, Prophylactic Or Diagnostic Injection Subq/Im Completed 05/31/2019 34148 Therapeutic, Prophylactic Or Diagnostic Injection Subq/Im Completed 05/24/2019 35792 Therapeutic, Prophylactic Or Diagnostic Injection Subq/Im Completed 03/23/2019 18508 Visual Screening Test Of Visual Acuity, Quantitative, Completed Bilateral Medical Devices Description No Information Available Encounters Type Date Location Provider Dx Diagnosis Office Visit 01/12/2019 [facility] Yesika KarfacundocarmitaDO R41.81 Age-related 11:00a cognitive decline R44.1 Visual hallucinations R44.0 Auditory hallucinations R29.6 Repeated falls Z23 Encounter for immunization Z68.25 Body mass index (BMI) 25.0-25.9, adult Assessments Date Code Description Provider 05/24/2019 E53.8 Deficiency of other specified B group vitamins Nurse 03/23/2019 Z00.01 Encounter for general adult medical Yesika Rubio DO examination with abnormal findings 03/23/2019 R41.81 Age-related cognitive decline Yesika MarshallDO anika 03/23/2019 H91.93 Unspecified hearing loss, bilateral Yesika Rubio DO 03/23/2019 Z01.00 Encounter for examination of eyes and vision Yesika Rubio, without abnormal findings 03/23/2019 Z13.31 Encounter for screening for depression Yesika Rubio, DO 01/12/2019 R41.81 Age-related cognitive decline Yesika Rubio, DO 01/12/2019 R44.1 Visual hallucinations Yesika Rubio, DO 01/12/2019 R44.0 Auditory hallucinations Yesika Rubio, DO 01/12/2019 R29.6 Repeated falls Yesika Rubio, DO 01/12/2019 Z23 Encounter for immunization Yesika Rubio, DO 01/12/2019 Z68.25 Body mass index (BMI) 25.0-25.9, adult Yesika Rubio, Plan of Treatment Future Appointment(s):06/14/2019 2:00 pm - Nurse at [facility] Main09/21/2019 11:00 am - Yesika Rubio, DO at [facility] Main03/23/2019 - Yesika Rubio, DOZ00.01 Encounter for general adult medical examination with abnormal [id number] Age -related cognitive declineComments:Neuro eval done Did not change much of what they are doing We discussed ok to take B12 as level was lower limits of normal We spent quite a bit of time discussing how to keep things safe - meds dispensed and given to her, marking the stove if she is going to keep cooking, notes, etcFollow with neuro as [id number] Unspecified hearing loss, bilateralComments:Unlikely related to the excess cerumen noted but worth trial of debrox drops and then recommend hearing eval - rx frddcE54.00 Encounter for examination of eyes and vision without abnormal [id number] Encounter for screening for depressionAllNew Medication:Aldactone 25 mg - 1 tab by mouth every dayMetamucil Smooth Texture Sugar Free 58.6 % - dailyHearing Test - dx: decreased hearing and hearing loss Functional Status Description No Information Available Mental Status Description No Information Available Referrals Description No Information Available
--- OUTSIDE RECORDS SUMMARY | 2019-06-15 12:19 | XMS REPORT | Continuity of Care Document ---
:1935 External Reference #:[id number] Author Name Yesika Rubio DO Address [address] [place] [address] Problems Active Problems Provider Date Essential hypertension [...] CPT Code Status Date Vaccine Lot # [id number] Given 01/12/2019 Flu High Dose [id number] 15477 Given 06/07/2014 Tdap - Boostrix/Adacel 50121 Given 06/07/2014 Prevnar 13 Vital Signs Date [...] Result H/L Range Note CBC Auto 06/07/2019 [facility] White Blood 9.3 10^3/uL Normal 3.5-10.[address] [place], [place] [id number] [phone] Red Blood Count 3.69 10^6/uL Low 3.70-4.87 [...] % Nucleated Red Blood Cells % 0.0 CBC Auto 02/08/2019 [facility] White Blood 7.3 10^3/uL Normal 3.5-10.[address] [place], [place] [address] [phone] Red Blood Count 4.20 10^6/uL Normal 3.70-4.87 [...] Red Blood Cells % 0.0 Laboratory 02/08/2019 [facility] TSH (Thyroid 1.32 Normal 0.34 -5.[address]) mcIU/[place] [address] [phone] Vitamin B12 188 pg/mL Normal 180-914 1 Comp Metabolic 02/08/2019 [facility] Sodium 140 mmol/L Normal 135-[address] [place] [address] [phone] Potassium 4.9 mmol/L Normal 3.5-5.0 Chloride 103 [...] Egfr Non- 71.4 >60 Egfr 86.4 >60 2 Laboratory test 02/08/2019 [facility] Digoxin 0.9 ng/ml Normal 0.8-2.[address] [place] [address] [phone] Syphillis Igg W/Reflex RPR Negative Negative Methylmalonic Acid 0.31 nmol/mL <=0.40 3 1 Normal Range 180 to 914 Indeterminate Range 145 to 180 Deficient Range <145 2 Because ethnic data is not always [...] 5 Kidney failure <15 (or dialysis) 3 ADDITIONAL INFORMATION This test was developed and its performance characteristics determined by [facility] in a manner consistent with CLIA requirements. This test has not been cleared or approved by the U.S. Food and Drug Administration. Test Performed by: [place] [address] Executive Officer: Antonio Lira M.D. Ph.D.; CLIA# [id number] Procedures Date Code Description Status 06/07/2019 48160 Therapeutic, Prophylactic Or Diagnostic Injection Subq/Im Completed 05/31/2019 97328 Therapeutic, Prophylactic Or Diagnostic Injection Subq/Im Completed 05/24/2019 94536 Therapeutic, Prophylactic Or Diagnostic Injection Subq/Im Completed 03/23/2019 21634 Visual Screening Test Of Visual Acuity, Quantitative, Completed Bilateral Medical Devices Description No Information Available Encounters Type Date Location Provider Dx Diagnosis Office Visit 01/12/2019 [facility] Yesika Rubio DO R41.81 Age-related 11:00a cognitive decline R44.1 Visual hallucinations R44.0 Auditory hallucinations R29.6 Repeated falls Z23 Encounter for immunization Z68.25 Body mass index (BMI) 25.0-25.9, adult Assessments Date Code Description Provider 05/24/2019 E53.8 Deficiency of other specified B group vitamins Nurse 03/23/2019 Z00.01 Encounter for general adult medical Yesika Rubio DO examination with abnormal findings 03/23/2019 R41.81 Age-related cognitive decline Yesika Rubio DO 03/23/2019 H91.93 Unspecified hearing loss, bilateral Yesika Rubio, DO 03/23/2019 Z01.00 Encounter for examination of eyes and vision Yesika Rubio DO without abnormal findings 03/23/2019 Z13.31 Encounter for screening for depression Yesika Rubio, DO 01/12/2019 R41.81 Age-related cognitive decline Yesika Rubio, DO 01/12/2019 R44.1 Visual hallucinations Yesika Rubio, DO 01/12/2019 R44.0 Auditory hallucinations Yesika Rubio, DO 01/12/2019 R29.6 Repeated falls Yesika Rubio, DO 01/12/2019 Z23 Encounter for immunization Yesika Rubio, DO 01/12/2019 Z68.25 Body mass index (BMI) 25.0-25.9, adult Yesika Rubio DO Plan of Treatment Future Appointment(s):06/14/2019 2:00 pm - Nurse at [facility]09/21/2019 11:00 am - Yesika Rubio, DO at [facility]03/23/2019 - Yesika Rubio, DOZ00.01 Encounter for general adult medical examination with abnormal ogeectopE33.81 Age -related cognitive declineComments:Neuro eval done Did not change much of what they are doing We discussed ok to take B12 as level was lower limits of normal We spent quite a bit of time discussing how to keep things safe - meds dispensed and given to her, marking the stove if she is going to keep cooking, notes, etcFollow with neuro as busrrvqzhO21.93 Unspecified hearing loss, bilateralComments:Unlikely related to the excess cerumen noted but worth trial of debrox drops and then recommend hearing eval - rx imaxmZ94.00 Encounter for examination of eyes and vision without abnormal zwjtcmnyL82.31 Encounter for screening for depressionAllNew Medication:Aldactone 25 mg - 1 tab by mouth every dayMetamucil Smooth Texture Sugar Free 58.6 % - dailyHearing Test - dx: decreased hearing and hearing loss Functional Status Description No Information Available Mental Status Description No Information Available Referrals Description No Information Available
--- OUTSIDE RECORDS SUMMARY | 2019-06-15 12:19 | XMS REPORT | Summary of Care ---
:1935 Author Organization [facility] Address [address] [address] Care Team Providers Name Role Phone None, Hendron Primary Care Provider Unavailable Reason for Referral (Routine) Status Reason Specialty Diagnoses / Procedures Referred By Contact Referred To Contact Dunia Robles CRNP [address] [address] Scheduling Instructions PLEASE make sure X-RAY's have been ordered on the affected body part. Reason for Consult: right scapular fracture Patient Background: Sury Daley is a 84-y.o. female Principal Problem: Closed fracture of multiple ribs of right side Active Problems: Afib (HCC) Compression fracture of T2 vertebra (HCC) Traumatic pneumothorax (Routine) Status Reason Specialty Diagnoses / Procedures Referred By Contact Referred To Contact To, Giana Erwin MD [address] [address] Scheduling Instructions Reason for Consult: T2 fx Patient Background: Sury Daley is a 84-y.o. female Reason for Visit Reason Comments Fall Auth/Cert Status Reason Specialty Diagnoses / Procedures Referred By Contact Referred To Contact Encounter Details Date Type Department Care Team Description 06/08/2019 - Hospital Encounter [facility] 6 Glynn Tam MD Inpatient 06/11/2019 1 [address] [address] [address] [place] [address] Allergies No Known Allergiesdocumented as of this encounter (statuses as of 06/12/2019) Medications Medication Sig Dispensed Refills Start Date End Date Status digoxin Take 0.125 0 Active (LANOXIN, mg by mouth DIGITEK) 125 MCG DAILY. Oral Tab sotalol Take 40 mg 0 Active (BETAPACE) 80 MG by mouth Oral Tab TWICE DAILY. magnesium oxide Take 400 mg 0 Active (MAG-OX) 400 MG by mouth Oral Tab EVERY MORNING. tramadol Take 50 mg 0 Active (ULTRAM) 50 MG by mouth Oral Tab EVERY SIX HOURS NEEDED for Pain. duloxetine Take 60 mg 0 Active (CYMBALTA) 60 MG by mouth Oral CAPSULE DAILY. ENTERIC COATED PARTICLES cephalexin Take 1 Cap 16 Cap 0 06/09/2019 06/13/2019 Active (KEFLEX) 500 MG by mouth Oral Cap FOUR TIMES DAILY for 4 days. oxybutynin Take 1 Tab 90 Tab 0 06/11/2019 Active (DITROPAN) 5 MG by mouth Oral Tab TWICE DAILY. apixaban Take by 0 06/09/2019 Discontinued (ELIQUIS) 2.5 MG mouth TWICE (Other) Oral Tab DAILY. documented as of this encounter (statuses as of 06/12/2019) Active Problems Problem Noted Date Longstanding persistent atrial fibrillation 06/08/2019 Compression fracture of T2 vertebra 06/08/2019 Closed fracture of multiple ribs of right side 06/08/2019 Traumatic pneumothorax 06/08/2019 Fall 06/08/2019 Chronic anticoagulation 06/08/2019 Scapula fracture 06/08/2019 UTI (urinary tract infection) 06/08/2019 documented as of this encounter (statuses as of 06/12/2019) Social History Tobacco Use Types Packs/Day Years Used Date Never Assessed Sex Assigned at Date Recorded Not on file documented as of this encounter Last Filed Vital Signs Vital Sign Reading Time Taken Comments Blood Pressure 169/96 06/11/2019 7:09 notified Ty saldana AM EST Laws Pulse 67 06/11/2019 7:09 AM EST Temperature 36.6 06/11/2019 7:09 C (97.8 AM EST F) Respiratory Rate 20 06/11/2019 7:09 AM EST Oxygen Saturation 94% 06/11/2019 7:09 AM EST Inhaled Oxygen - - Concentration Weight 65.4 kg (144 lb 3.2 06/11/2019 4:15 oz) AM EST Height - - Body Mass Index - - documented in this encounter Discharge Instructions Stephen Keys FNP-C - 06/09/2019Provider's Instructions Reason for Admission or Diagnosis: FALL Activity/Restrictions: -Sling for the right upper limb. You may remove sling 3-5 times daily for elbow flexion and extension -Nonweight bearing right upper extremity. -Activity as tolerated. No heavy lifting -No driving while on narcotic pain medications. -Exercise and walk daily. Skin/Wound Care: -Keep incision clean and dry. -Observe for redness, swelling, or drainage. -You can shower 48hours after the procedure. Soap, shampoo and conditioners are all ok. Let everything run over wound then pat dry. -Do not soak wound via tube bath or swimming -The steri-strips will curl up and fall off by themselves within the next week or two. Discharge Diet: -Diet that you were on prior to hospitalization. -Please take stool softener while you are on narcotic pain medication since it can cause constipation Special Instructions: - Follow up in local orthopedic outpatient clinic in 2 weeks with scapula x- rays (recommended by [facility]) -Follow up with PCP in 1 week. -Please resume the Eliquis when you have clearance from your PCP. -Please call the clinic if you have any questions or concerns before your appointment. Discharge Provider: NATASHA Bonilla Attending: MD Carlos Alberto Time:11:37 Nurse's Instructions Problems to report to your Physician: Excessive pain or discomfort Fever > 100.5 degrees Difficulty breathing Increase or smell in wound drainage Skin/Wound Care: Skin intact on discharge: {SKIN/WOUND CARE:70116} Medical Equipment/Supplies to help you at home: {MEDICAL SUPPLIES:15136} Patient's medications returned: {N/A:74733} Help arranged for you Home Health/Receiving Agency: {HOME HEALTH/RECEIVING AGENCY:19230} Other preprinted instructions reviewed and given: {PREPRINTED DISCHARGE INSTRUCTIONS:81800} Follow-Up Care: Call to schedule your appointment with in {NUMBERS 0 - 7:[id number]} weeks, Phone Blood work needed: X-rays needed: Reminded patient that they can VIEW, DOWNLOAD and TRANSMIT their hospital information in [employer]: {YES/NO:64} [email or web address]/sites/default/files/What%20the%20patient%20will% [email or web address]%[email or web address]_[email or web address].pdf Smoking: If you or your caregiver smoke, we recommend that you quit. For smoking cessation help, please callthe National Quit Line at . QUESTIONS OR CONCERNS AFTER DISCHARGE Dietitian Home Care Needs *Please Return Patient Satisfaction Survey* documented in this encounter Plan of Treatment Date Type Specialty Care Team Description 06/23/2019 Office Visit Orthopedics Caro Almanza PA [address] [address] Health Maintenance Due Date Last Done Comments DTaP/Tdap/Td Vaccines (1 - Tdap) 1945 DEPRESSION SCREENING 1946 HIV SCREENING 1949 ZOSTER IMMUNIZATION SERIES (1 of 2) 1984 FALL RISK ASSESSMENT 1999 PNEUMOCOCCAL 65+YRS (1 of 2 - 1999 PCV13) INFLUENZA VACCINE (#1) 2018 HEPATITIS A IMMUNIZATION SERIES Aged Out No longer eligible based on patient's age to complete this topic HPV IMMUNIZATION SERIES Aged Out No longer eligible based on patient's age to complete this topic MENINGOCOCCAL VACCINE IMM Aged Out No longer eligible based on patient's age to complete this topic documented as of this encounter Procedures Procedure Name Priority Date/Time Associated Comments Diagnosis MAGNESIUM LEVEL STAT 06/09/2019 6:55 Results for this AM EST procedure are in the results section. BASIC METABOLIC PANEL STAT 06/09/2019 6:55 Results for this AM EST procedure are in the results section. CBC NO DIFFERENTIAL STAT 06/09/2019 6:55 Results for this AM EST procedure are in the results section. XR CHEST 1 VIEW Routine 06/09/2019 6:26 Results for this AM EST procedure are in the results section. XR CHEST 1 VIEW STAT 06/08/2019 6:16 Results for this AM EST procedure are in the results section. URINE MICROSCOPIC STAT 06/08/2019 5:18 Results for this WITH REFLEX CULTURE AM EST procedure are in the results section. URINALYSIS (LAB) WITH STAT 06/08/2019 5:18 Results for this REFLEX CULTURE AM EST procedure are in the results section. URINE CULTURE (C&S) STAT 06/08/2019 5:18 Results for this AM EST procedure are in the results section. CT CHEST ABDOMEN STAT 06/08/2019 2:47 Results for this PELVIS WITH IV AM EST procedure are in CONTRAST the results section. CT SPINE THORACIC Routine 06/08/2019 1:[address] SPINE LUMBAR Routine 06/08/2019 1:[address] SPINE CERVICAL Routine 06/08/2019 1:[address] HEAD WITHOUT IV Routine 06/08/2019 1:[address] SPINE CERVICAL Routine 06/07/2019 12:[address] SPINE THORACIC Routine 06/07/2019 12:[address] SPINE LUMBAR Routine 06/07/2019 12:00 Pain AM EST documented in this encounter Results MAGNESIUM LEVEL (06/09/2019 6:55 AM EST) Magnesium 2.0 1.6 - 2.3 MG/DL [facility] Specimen Blood - Blood specimen (specimen) Performing Organization Address City/State/Zipcode Phone Number [facility] [address] [facility] [place] [place] [address] BASIC METABOLIC PANEL (06/09/2019 6:55 AM EST) Glucose 106 (H) 70 - 99 mg/dl [facility] BUN 11 7 - 17 mg/dl [facility] Creatinine 0.5 (L) 0.7 - 1.2 mg/dl [facility] Sodium 136 134 - 145 mmol/L [facility] Potassium 4.1 3.5 - 5.1 mmol/L [facility] Chloride 101 98 - 107 mmol/L [facility] CO2 29 22 - 30 mmol/L [facility] Calcium 8.7 8.3 - 10.1 mg/dl [facility] eGFR >[address] [facility] Comment: Below ml/min/1.73ml GROUP Estimated GFR Interpretation: Sq LABORATORY Above 60ml/min/1.73m2 = Normal Renal Function 30-59 ml/min/1.73m2 = Stage 3 Chronic Kidney Disease 15-29 ml/min/1.73m2 = Stage 4 Chronic Kidney Disease Less than 15 ml/min/1.73m2 = Stage 5 Chronic Kidney Disease The GFR value is calculated using the Modification of Diet in Renal Disease ( MDRD) Study Equation which can be found at: https://www.kidney.org/content/opbv-nsoxx-stmugycl BUN/Creatinine 22 6 - [address] [facility] Ratio [facility] Anion Gap 6 3 - 11 mmol/L [facility] Specimen Blood - Blood specimen (specimen) Performing Organization Address [facility] Phone Number [facility] [address] [place] [address] CBC NO DIFFERENTIAL (06/09/2019 6:55 AM EST) WBC Count 6.05Comment: 3.98 - 10.04 [facility] Methodology was K/uL [facility] changed 04/30/2018. Please note updated reference range and units. RBC Count 3.58 (L) 3.93 - 5.22 [facility] M/UL [facility] Hemoglobin 11.3 11.2 - 15.7 [facility] g/dL [facility] Hematocrit 33.7 (L) 34.1 - 44.9 % [facility] MCV 94.1 79.4 - 94.8 [facility] FL [facility] MCH 31.6 25.6 - 32.2 [facility] PG [facility] MCHC 33.5 32.2 - 35.5 [facility] g/dL [facility] Platelet Count 159 (L) 182 - 369 [facility] K/uL [facility] MPV 9.5 9.4 - 12.3 [place] [facility] RDW 13.7 11.7 - 14.4 % [facility] Specimen Blood - Blood specimen (specimen) Performing Organization Address [facility] Phone Number [facility] [address] [place] [address] XR CHEST 1 VIEW (06/09/2019 6:26 AM EST) Specimen Impressions Performed At There are no radiographic findings of pneumonia or pneumothorax. Signed by Manpreet Herrera MD on 06/09/2019 7:11 AM Narrative Performed At Procedure(s): XR CHEST 1 VIEW Date of service: 06/09/2019 5:28 AM History: 84 years, Female, "pneumothorax" Technique: An AP view of the chest was acquired. Findings: The cardiac silhouette is enlarged. The lungs are clear, without findings of a focal consolidation, pneumothorax or pleural effusion. Procedure Note Interface, Rad Results - 06/09/2019 7:13 AM EST Procedure(s): XR CHEST 1 VIEW Date of service: 06/09/2019 5:28 AM History: 84 years, Female, "pneumothorax" Technique: An AP view of the chest was acquired. Findings: The cardiac silhouette is enlarged. The lungs are clear, without findings of a focal consolidation, pneumothorax or pleural effusion. IMPRESSION There are no radiographic findings of pneumonia or pneumothorax. Signed by Manpreet Herrera MD on 06/09/2019 7:11 AM XR CHEST 1 VIEW (06/08/2019 6:16 AM EST) Specimen Impressions Performed At There are no radiographic findings of pneumonia or pneumothorax. Signed by Manpreet Herrera MD on 06/08/2019 6:49 AM Narrative Performed At Procedure(s): XR CHEST 1 VIEW Date of service: 06/08/2019 5:57 AM History: 84 years, Female, "follow known ribs fracture" Technique: An AP view of the chest was acquired. Findings: There is redemonstration of the right lower rib fracture. 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 The cardiac silhouette is enlarged. The lungs are clear, without findings of a focal consolidation, pneumothorax or pleural effusion. Procedure Note Interface, Rad Results - 06/08/2019 6:51 AM EST Procedure(s): XR CHEST 1 VIEW Date of service: 06/08/2019 5:57 AM History: 84 years, Female, "follow known ribs fracture" Technique: An AP view of the chest was acquired. Findings: There is redemonstration of the right lower rib fracture. 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 The cardiac silhouette is enlarged. The lungs are clear, without findings of a focal consolidation, pneumothorax or pleural effusion. IMPRESSION There are no radiographic findings of pneumonia or pneumothorax. Signed by Manpreet Herrera MD on 06/08/2019 6:49 AM Urine Culture (06/08/2019 5:18 AM EST) Urine Culture >100,000 CFU/mL [facility] Escherichia coli (A) [facility] Specimen Urine - Urine specimen obtained by clean catch procedure (specimen) Narrative Performed At Pyuria accompanying asymptomatic bacteriuria is not [facility] an indication for antimicrobial treatment. Exceptions include if the patient is , immunocompromised, undergoing urologic procedure or transurethral resection of the prostate. Organism Antibiotic Method Susceptibility Escherichia coli Ampicillin ARAM >=32 ug/ml: Resistant Escherichia coli Ampicillin + Sulbactam ARAM 16 ug/ml: Intermediate Escherichia coli Aztreonam ARAM <=1 ug/ml: Sensitive Escherichia coli Cefazolin surrogate ARAM <=4 ug/ml: Sensitive Escherichia coli Ceftriaxone ARAM <=1 ug/ml: Sensitive Escherichia coli Ciprofloxacin ARAM <=0.25 ug/ml: Sensitive Escherichia coli Gentamicin ARAM <=1 ug/ml: Sensitive Escherichia coli Nitrofurantoin ARAM <=16 ug/ml: Sensitive Escherichia coli Piperacillin + Tazobactam ARAM <=4 ug/ml: Sensitive Escherichia coli Trimethoprim + Sulfamethoxazole ARAM <=20 ug/ml: Sensitive Escherichia coli Cefepime ARAM <=1 ug/ml: Sensitive Comment: Cefazolin surrogate susceptibility predicts results for the oral agents*( cefaclor, cefdinir, cefpodoxime, cefprozil, cefuroxime axetil, cephalexin, and loracarbef), when used for therapy of uncomplicated UTIs due to E. coli ,K. pneumoniae, and P. mirabilis.*Formulary-dependent Performing Organization Address [facility] Phone Number [facility] [address] [place] [address] URINE MICROSCOPIC WITH REFLEX CULTURE (06/08/2019 5:18 AM EST) Urine Wbc 5-10 (A) 0 - 5 /HPF [facility] Urine Rbc 0-2 0 - 2 /HPF [facility] Urine Epithelial 1+ None Seen /HPF [facility] Cells [facility] Urine Bacteria 3+ (A) None Seen /HPF [facility] Specimen Urine - Urine specimen obtained by clean catch procedure (specimen) Performing Organization Address [facility] Phone Number [facility] [address] [place] [address] URINALYSIS (LAB) WITH REFLEX CULTURE (06/08/2019 5:18 AM EST) Urine Color Yellow Yellow [facility] Urine Appearance Clear Clear [facility] Urine Glucose Negative Negative mg/dl [facility] Urine Bilirubin Negative Negative [facility] Urine Ketones Negative Negative [facility] Urine Specific >1.030 (H) 1.005 - 1.030 [facility] Urine Blood Trace (A) Negative [facility] Urine Ph 7.0 5.0 - 8.0 [facility] Urine Protein Negative Negative mg/dl [facility] Urine Urobilinogen 0.2 0.2 - 1.0 [facility] E.U./DL [facility] Urine Nitrite Positive (A) Negative [facility] Urine Leukocytes Negative Negative [facility] Specimen Urine - Urine specimen obtained by clean catch procedure (specimen) Performing Organization Address City/State/Zipcode Phone Number [facility] [address] [address] [address] CHEST ABDOMEN PELVIS WITH IV CONTRAST (06/08/2019 2:47 AM EST) Specimen Addenda Addendum by Manpreet Herrera MD on 06/08/2019 4:33 AM IMPRESSION: Assessment of the thoracic spine is obscured by artifact produced from the patient's partially elevated left upper extremity and motion artifact. The aforementioned T2 spinal fracture was more appropriately visualize and characterize on the prior CT of the thoracic spine. There are minimally displaced fractures of the inferior angle of the right scapula and right 5th rib. Signed by Manpreet Herrera MD on 06/08/2019 4:31 AM Impressions Performed At No acute traumatic viscus injury of the thoracoabdominal pelvic cavity. Age-indeterminate compression fracture of the T5 vertebral body with retropulsion of the fracture into the central canal resulting in at least moderate central canal stenosis. The superimposed kyphosis favors chronicity. Signed by Manpreet Herrera MD on 06/08/2019 3:16 AM Narrative Performed At Procedure(s): CT CHEST ABDOMEN PELVIS WITH IV CONTRAST Date of service: 06/08/2019 2:36 AM Provided clinical information: 84 years, Female, "Dftii-hjuvcrk-hrsbxq trauma, moderate, blunt" Contrast: Intravenous contrast was administered. Comparison: None. CT OF THE CHEST: Technique: Axial computed tomography images of the chest was performed from the thoracic inlet to the lung bases. Coronal and sagittal reformatted images were obtained and reviewed. FINDINGS: Thoracic cavity: Mediastinum: No acute findings. Airways: The major airways are patent. Pleura/lungs: There are small bilateral pleural effusions. There is no pneumothorax or lobar consolidation. Osseous structures: There is compression fracture of the T5 vertebral body with approximate 90 percent loss of the vertebral body height There is retropulsion of the fracture into the central canal resulting in at least moderate central canal stenosis. The superimposed kyphosis favors chronicity. 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 Soft tissues: No acute findings. CT OF THE ABDOMEN AND PELVIS: Technique: Axial computed tomography images of the abdomen and pelvis were obtained from the lung bases to the pubic symphysis. Coronal and sagittal reformatted images were obtained and reviewed. FINDINGS: soft tissues: The soft tissues are within normal limits. Bones: No acute osseous findings. 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 Gallbladder: There are numerous intraluminal gallstones, without evidence of gallbladder wall thickening or pericholecystic inflammation. Vessels: No acute findings. Liver: The liver is within normal limits. Biliary system: There is no significant intrahepatic or extrahepatic ductal dilatation.. Spleen: The spleen is within normal limits. Pancreas: There is no pancreatic dilatation or a contour deforming mass. Adrenal glands: The adrenal glands are within normal limits. Genitourinary system: There is no hydronephrosis or obstructing nephrolithiasis. Bowel: There is no colonic obstruction, free intraperitoneal air or pneumatosis. There is moderate retained colonic stool within the ascending colon and cecum. The appendix is well-visualized and is within normal limits. Procedure Note Interface, Rad Results - 06/08/2019 3:18 AM EST Procedure(s): CT CHEST ABDOMEN PELVIS WITH IV CONTRAST Date of service: 06/08/2019 2:36 AM Provided clinical information: 84 years, Female, "Ycoow-uagvwtq-matdmu trauma, moderate, blunt" Contrast: Intravenous contrast was administered. Comparison: None. CT OF THE CHEST: Technique: Axial computed tomography images of the chest was performed from the thoracic inlet to the lung bases. Coronal and sagittal reformatted images were obtained and reviewed. FINDINGS: Thoracic cavity: Mediastinum: No acute findings. Airways: The major airways are patent. Pleura/lungs: There are small bilateral pleural effusions. There is no pneumothorax or lobar consolidation. Osseous structures: There is compression fracture of the T5 vertebral body with approximate 90 percent loss of the vertebral body height There is retropulsion of the fracture into the central canal resulting in at least moderate central canal stenosis. The superimposed kyphosis favors chronicity. 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 Soft tissues: No acute findings. CT OF THE ABDOMEN AND PELVIS: Technique: Axial computed tomography images of the abdomen and pelvis were obtained from the lung bases to the pubic symphysis. Coronal and sagittal reformatted images were obtained and reviewed. FINDINGS: soft tissues: The soft tissues are within normal limits. Bones: No acute osseous findings. 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 Gallbladder: There are numerous intraluminal gallstones, without evidence of gallbladder wall thickening or pericholecystic inflammation. Vessels: No acute findings. Liver: The liver is within normal limits. Biliary system: There is no significant intrahepatic or extrahepatic ductal dilatation.. Spleen: The spleen is within normal limits. Pancreas: There is no pancreatic dilatation or a contour deforming mass. Adrenal glands: The adrenal glands are within normal limits. Genitourinary system: There is no hydronephrosis or obstructing nephrolithiasis. Bowel: There is no colonic obstruction, free intraperitoneal air or pneumatosis. There is moderate retained colonic stool within the ascending colon and cecum. The appendix is well-visualized and is within normal limits. IMPRESSION No acute traumatic viscus injury of the thoracoabdominal pelvic cavity. Age-indeterminate compression fracture of the T5 vertebral body with retropulsion of the fracture into the central canal resulting in at least moderate central canal stenosis. The superimposed kyphosis favors chronicity. Signed by Manpreet Herrera MD on 06/08/2019 3:[address] SPINE THORACIC (06/08/2019 1:30 AM EST) Specimen Performing Organization Address [facility] HospitalCJ[facility] Phone Number [place] [facility] [address] [address] [address] SPINE LUMBAR (06/08/2019 1:25 AM EST) Specimen Performing Organization Address [facility]/[employer] Phone Number [place] [facility] [address] [address] [address] SPINE CERVICAL (06/08/2019 1:20 AM EST) Specimen Performing Organization Address [facility] Phone Number [place] [facility] [address] [address] [address] HEAD WITHOUT IV CONTRAST (06/08/2019 1:15 AM EST) Specimen Performing Organization Address [facility] Phone Number [facility] [address] [address] [address] SPINE CERVICAL (06/07/2019 12:10 AM EST) Specimen Performing Organization Address [facility] Phone Number [facility] [address] [address] [address] SPINE THORACIC (06/07/2019 12:05 AM EST) Specimen Performing Organization Address [facility] [place] Phone Number [facility] [address] [address] [address] SPINE LUMBAR (06/07/2019 12:00 AM EST) Specimen Performing Organization Address [facility] [facility] [place] Phone Number [facility] POCT [address] [place] [place] [id number] documented in this encounter Visit Diagnoses Diagnosis Fall, initial encounter Pain Generalized pain Longstanding persistent atrial fibrillation Compression fracture of T2 vertebra (HCC) Closed fracture of multiple ribs of right side Traumatic pneumothorax Traumatic pneumothorax without mention of open wound into thorax Chronic anticoagulation Encounter for long-term (current) use of anticoagulants Scapula fracture Closed fracture of unspecified part of scapula UTI (urinary tract infection) Urinary tract infection, site not specified documented in this encounter Administered Medications Medication Order MAR Action Action Date Dose Rate Site acetaminophen (TYLENOL) tablet Given 06/11/2019 8:59 AM EST 650 mg 650 mg 650 mg, Oral, Q6 HRS, First dose on Fri06/08/19 at 0235, Until Discontinued Given 06/11/2019 2:35 AM EST 650 mg Given 06/10/2019 9:27 PM EST 650 mg cephalexin (KEFLEX) capsule 500 mg Given 06/11/2019 8:59 AM EST 500 mg 500 mg, Oral, QID, 24 doses, First dose on Fri06/08/19 at 0940, Last dose on Fri06/13/19 at 2100 Given 06/10/2019 9:27 PM EST 500 mg Given 06/10/2019 4:53 PM EST 500 mg digoxin (LANOXIN, DIGITEK) tablet 0.125 mg Given 06/11/2019 8:59 AM EST 0.125 mg 0.125 mg, Oral, DAILY, First dose on Fri06/08/19 at 0900, Until Discontinued Given 06/10/2019 10:21 AM EST 0.125 mg Given 06/09/2019 8:19 AM EST 0.125 mg docusate sodium (COLACE) capsule 100 mg Given 06/11/2019 8:59 AM EST 100 mg 100 mg, Oral, BID, First dose on Fri06/08/19 at 0900, Until Discontinued, This medication dosage form should NOT be crushed. Please call the inpatient Pharmacy for more information. [facility] ext. [phone] [place] ext. [phone] [facility] ext. [phone] , Given 06/10/2019 9:27 PM EST 100 mg Given 06/10/2019 10:22 AM EST 100 mg duloxetine (CYMBALTA) capsule 60 mg Given 06/11/2019 8:59 AM EST 60 mg 60 mg, Oral, DAILY, First dose on Fri06/08/19 at 0900, Until Discontinued Given 06/10/2019 10:21 AM EST 60 mg Given 06/09/2019 8:19 AM EST 60 mg enoxaparin (LOVENOX) injection Given 06/10/2019 9:27 PM EST 30 mg Abdominal Tissue 30 mg/0.3 mL 30 mg 30 mg, Subcutaneous, Q12 HRS, 5 doses, First dose on Fri06/08/19 at 2100, Last dose on Fri06/10/19 at 2100, For odd doses, pharmacy will round the dose to the nearest 10mg as follows: for differences < 5mg the dose will be rounded down; for differences >/= 5mg the dose will be rounded up. - CAUTION & CONSIDER Heparin Xa (anti-Xa levels): CrCl < 30 mL/min; Women < 45 kg; Men < 57 kg; Weight > 150 kg or BMI > 40 kg/m2; , Pediatrics and Elderly patients - Treatment dose: 1 mg/kg q12h - Prophylactic dose: 40 mg q24h OR 30 mg q12h , Given 06/10/2019 10:22 AM EST 30 mg Abdominal Tissue Given 06/09/2019 8:44 PM EST 30 mg Abdominal Tissue iohexol (OMNIPAQUE) 350 MG/ML injectable Push 06/08/2019 2:45 AM EST 95 mL solution 95 mL 95 mL, Intravenous, NOW, 1 dose, Fri06/08/19 at 0245 lidocaine transdermal Patch applied 06/11/2019 9:00 AM 1 Patch Shoulder - Right patch (LIDODERM) topical EST 5 % 1 Patch, Topical, DAILY, First dose on 2/11/20 at 0900, Until Discontinued, Apply in AM, remove in PM. (no more than 12 h on per day). Please make sure previous patch is removed from site., Patch applied 06/10/2019 10:22 AM EST 1 Patch Back - Mid Patch applied 06/09/2019 8:18 AM EST 1 Patch Back - Mid magnesium hydroxide (MILK OF MAGNESIA) 400 Given 06/09/2019 8:44 PM EST 30 mL MG/5ML oral suspension 30 mL 30 mL, Oral, QHS, First dose on Fri06/08/19 at 2100, Until Discontinued Given 06/08/2019 8:17 PM EST 30 mL magnesium hydroxide (MILK OF MAGNESIA) 400 Given 06/10/2019 10:32 AM EST 60 mL MG/5ML oral suspension 60 mL 60 mL, Oral, X1, 1 dose, First dose on Fri06/10/19 at 0710 morphine syringe 4 mg Given 06/08/2019 1:05 AM EST 4 mg 4 mg, Intravenous Push, NOW, 1 dose, Fri06/08/19 at 0100 normal saline IV New Bag 06/08/2019 3:56 AM EST 100 mL/hr Intravenous, at 100 mL/hr, CONTINUOUS, Starting Fri06/08/19 at 0230, Until Fri06/08/19 at 1143 normal saline IV New Bag 06/08/2019 1:54 PM EST 50 mL/hr Intravenous, at 50 mL/hr, CONTINUOUS, Starting Fri06/08/19 at 1150, Until Fri06/08/19 at 1413 ondansetron (ZOFRAN) injection 4 mg Given 06/08/2019 1:05 AM EST 4 mg 4 mg, Intravenous Push, NOW, 1 dose, Fri06/08/19 at 0100 oxybutynin (DITROPAN) tablet 5 mg Given 06/11/2019 8:59 AM EST 5 mg 5 mg, Oral, BID, First dose on Fri06/10/19 at 0940, Until Discontinued Given 06/10/2019 9:27 PM EST 5 mg Given 06/10/2019 11:37 AM EST 5 mg sotalol (BETAPACE) tablet (1/2X80mg) 40 mg Given 06/11/2019 8:59 AM EST 40 mg 40 mg, Oral, BID, First dose on Fri06/08/19 at 0900, Until Discontinued, For any NEW patient starting therapy with Sotalol (BETAPACE) or for dose escalation on ANY patient, the following must be done to monitor for QTc prolongation: Baseline EKG (prior to first dose or dose escalation) EKG 2-3 hours after EVERY administration of Sotalol (BETAPACE) Provider MUST be notified if QTc exceeds 500 msec (550 msec in patients with ventricular conduction abnormalities) , Given 06/10/2019 9:27 PM EST 40 mg Given 06/10/2019 10:21 AM EST 40 mg tramadol (ULTRAM) tablet (1/2X50mg) 25 mg Given 06/08/2019 8:29 AM EST 25 mg 25 mg, Oral, Q4 HRS PRN, Starting Fri06/08/19 at 0131, Until Fri06/11/19 at 1518, Mild Pain (pain scale 1-3) - PO - 1st line - if immediate effect not required and patient can tolerate PO, Moderate Pain (pain scale 4-6) - PO - 1st line - if immediate effect not required and patient can tolerate PO, Adjust dose in geriatrics, renal and hepatic dysfunction., tramadol (ULTRAM) tablet 50 mg Given 06/11/2019 9:07 AM EST 50 mg 50 mg, Oral, Q6 HRS PRN, Starting Fri06/08/19 at 0132, Until Fri06/11/19 at 1518, Severe Pain (pain scale 7-10) - PO - 1st line - if immediate effect not required and patient can tolerate PO, Adjust dose in geriatrics, renal and hepatic dysfunction., Given 06/11/2019 1:09 AM EST 50 mg Given 06/10/2019 3:33 PM EST 50 mg documented in this encounter documented as of this encounter
[2019-06-15] MEDS ORDERED: Acetaminophen TAB* 325 MG PO ONE (12:25)
--- NOTE | 2019-06-15 12:30 | ED ---
Adult Trauma - HPI Summary HPI Summary: patient is an 84-year-old female who presents emergency department for evaluation after a mechanical fall. Patient currently at rehabilitation for numerous vertebral and rib fractures that she sustained last week after falling on the steps. She states she was at physical therapy today and accidentally stepped backwards off of a raised block and fell back striking her head. She denies loss of consciousness. She complains of substernal chest pain and right elbow pain. Is anticoagulated with Eliquis. Symptoms are moderate in severity. Movement makes symptoms worse. Rest makes symptoms better. - History of Current Complaint Chief Complaint: EDFall Stated Complaint: FALL PER EMS Time Seen by Provider: 06/15/19 12:15 Hx Obtained From: Patient, Family/Clinic Licensed Practical Nurse Pain Intensity: 3 - Allergy/Home Medications Allergies/Adverse Reactions: Allergies Allergy/AdvReac Type Severity Reaction Status Date / Time No Known Allergies Allergy Verified 02/25/19 08:30 Home Medications: Home Medications Digoxin TAB* [Lanoxin TAB*] 0.125 mg PO DAILY 07/08/12 [History Confirmed ] Sotalol TAB* [Betapace 80 MG TAB*] 40 mg PO BID 07/08/12 [History Confirmed ] Magnesium Oxide TAB* [MagOx 400 TAB*] 400 mg PO QAM 12/01/14 [History Confirmed 06/15/19] traMADol TAB* [Ultram*] 50 mg PO QID PRN 12/01/14 [History Confirmed 06/15/19] Apixaban* [Eliquis*] 2.5 mg PO BID 12/23/17 [History Confirmed 06/15/19] DULoxetine CAP* [Cymbalta CAP*] 60 mg PO DAILY 10/18/18 [History Confirmed ] L.acidoph,Paracasei, B.lactis [Probiotic] 1 each PO DAILY 10/18/18 [History Confirmed 06/15/19] Acetaminophen [Acetaminophen Extra Strength] 500 mg PO DAILY 10/26/18 [History Confirmed 06/15/19] Lidocaine 5% OINT* TUBE [Xylocaine 5% Oint*] 1 patch TRANSDERM DAILY 02/25/19 [ History Confirmed 06/15/19] Calcium Carbonate/Vitamin D3 [Calcium 500 + Vit D Caplet] 1 each PO QAM [History Confirmed 06/15/19] Psyllium MICHAEL* [Metamucil MICHAEL*] 1 pkt PO DAILY 06/15/19 [History Confirmed ] PMH/Surg Hx/FS Hx/Imm Hx Previously Healthy: Yes Endocrine/Hematology History: Reports: Hx Anticoagulant Therapy - xarelto 20mg PO daily Denies: Hx Diabetes, Hx Thyroid Disease Cardiovascular History: Reports: Hx Angina, Hx Atrial Fibrillation, Hx Hypercholesterolemia, Hx Hypertension Denies: Hx Coronary Artery Disease, Hx Myocardial Infarction, Hx Pacemaker/ ICD, Hx Valvular Heart Disease Respiratory History: Denies: Hx Asthma, Hx Chronic Obstructive Pulmonary Disease (COPD) Comment Only: Other Respiratory Problems/Disorders - HIATAL HERNIA REPAIR GI History: Reports: Other GI Disorders - recurent unexplained diarrhea Denies: Hx Ulcer History: Reports: Other Problems/Disorders - occasional incontinence Denies: Hx Renal Disease Musculoskeletal History: Reports: Hx Arthritis, Hx Rheumatoid Arthritis, Hx Osteoporosis, Other Musculoskeletal History - 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 (surgery for ...?) Sensory History: Reports: Hx Contacts or Glasses Denies: Hx Hearing Aid Opthamlomology History: Reports: Hx Contacts or Glasses Neurological History: Reports: Hx Headaches, Other Neuro Impairments/Disorders - neuropathy, balance problem Denies: Hx Dementia, Hx Seizures Psychiatric History: Reports: Hx Depression - Denies: Hx Eating Disorder, Hx Panic Disorder, Hx Substance Abuse - Cancer History Hx Chemotherapy: No Hx Radiation Therapy: No - Surgical History Surgery Procedure, Year, and Place: HYSTERECTOMY,KNEE REPLACEMENT RT SIDE, HIATAL HERNIA REPAIR Hx Anesthesia Reactions: No - Immunization History Date of Tetanus Vaccine: Unsure Date of Influenza Vaccine: up to date Infectious Disease History: No Infectious Disease History: Denies: Hx Clostridium Difficile, Hx Hepatitis, Hx Human Immunodeficiency Virus (HIV), Hx of Known/Suspected MRSA, Hx Shingles, Hx Tuberculosis, Hx Known/ Suspected VRE, Hx Known/Suspected VRSA, History Other Infectious Disease, Traveled Outside the [place] in Last 30 Days - Family History Known Family History: Positive: Cardiac Disease, Hypertension, Non-Contributory - Social History Occupation: Retired Lives: [facility] [employer] Alcohol Use: None Alcohol Amount: 1/2 glass of wine Hx Substance Use: No Substance Use Type: Reports: None Hx Tobacco Use: Yes - not currently Smoking Status (MU): Former Smoker Review of Systems - ROS Summary Review of Systems Summary: Digoxin TAB* [Lanoxin TAB*] 0.125 mg PO DAILY 07/08/12 [History Confirmed ] Sotalol TAB* [Betapace 80 MG TAB*] 40 mg PO BID 07/08/12 [History Confirmed ] Magnesium Oxide TAB* [MagOx 400 TAB*] 400 mg PO QAM 12/01/14 [History Confirmed 06/15/19] traMADol TAB* [Ultram*] 50 mg PO QID PRN 12/01/14 [History Confirmed 06/15/19] Apixaban* [Eliquis*] 2.5 mg PO BID 12/23/17 [History Confirmed 06/15/19] DULoxetine CAP* [Cymbalta CAP*] 60 mg PO DAILY 10/18/18 [History Confirmed ] L.acidoph,Paracasei, B.lactis [Probiotic] 1 each PO DAILY 10/18/18 [History Confirmed 06/15/19] Acetaminophen [Acetaminophen Extra Strength] 500 mg PO DAILY 10/26/18 [History Confirmed 06/15/19] Lidocaine 5% OINT* TUBE [Xylocaine 5% Oint*] 1 patch TRANSDERM DAILY 02/25/19 [ History Confirmed 06/15/19] Calcium Carbonate/Vitamin D3 [Calcium 500 + Vit D Caplet] 1 each PO QAM [History Confirmed 06/15/19] Psyllium MICHAEL* [Metamucil MICHAEL*] 1 pkt PO DAILY 06/15/19 [History Confirmed ] Constitutional: Negative Positive: Chest Pain Respiratory: Negative Negative: Shortness Of Breath, Cough Gastrointestinal: Negative Negative: Abdominal Pain, Vomiting Genitourinary: Negative Positive: Other - right elbow pain Skin: Negative Neurological/Mental Status: Negative Negative: Headache, Weakness, Paresthesia, Numbness, Syncope All Other Systems Reviewed And Are Negative: Yes Physical Exam Triage Information Reviewed: Yes Vital Signs On Initial Exam: Initial Vitals Temp Pulse Resp BP Pulse Ox 96.9 F 94 19 164/111 96 06/15/19 12:17 06/15/19 12:17 06/15/19 12:17 06/15/19 12:17 06/15/19 12:17 Vital Signs Reviewed: Yes Appearance: Positive: Well-Appearing - Pt. sitting up in bed in NAD. Family present. Answers questions appropriately. Skin: Positive: Warm, Dry Head/Face: Positive: Normal Head/Face Inspection Eyes: Positive: Normal, EOMI, MELISSA Neck: Positive: Supple Respiratory/Lung Sounds: Positive: Clear to Auscultation, Breath Sounds Present Cardiovascular: Positive: Normal, RRR Abdomen Description: Positive: Nontender, Soft Procedures - Sedation Patient Received Moderate/Deep Sedation with Procedure: No Diagnostics - Vital Signs Vital Signs Temp Pulse Resp BP Pulse Ox 06/15/19 12:17 96.9 F 94 19 164/111 96 - Laboratory Result Diagrams: 06/15/19 12:34 06/15/19 12:34 Lab Statement: Any lab studies that have been ordered have been reviewed, and results considered in the medical decision making process. Adult Trauma Course/Dx - Course Course Of Treatment: Pt. presenting for pain complaint of right elbow pain after a mechanical fall. Pt. did strike her head and is anticoagulated. Pt. A, A and O x 3. Well appearing without neuro deficits. Pt.'s main complaint is right elbow pain. ECG done at 1233 shows a sinus rhythm of 70bpm, no STEMI, similar to prior tracing. CT cervical: IMPRESSION: 1. No new cervical spine fracture. 2. Several redemonstrated upper thoracic spine fractures. The unstable 3 column fracture. of T3 demonstrates progressive height loss ( currently 50%: Previously 30%). There is. moderate bony retropulsion at this level. 3. Varying degrees of multilevel spondylosis with no severe osseous encroachment spinal. Brain ct negative. Elbow xray shows distal humeral fx per radiology. Long posterior splint and sling placed. Radiologist, Dr. Singh, is concerned with progression of T2 fx. He notes that it appeared unstable on ct last week but there has been increased in compression. Spoke with pt.'s who notes that pt. was seen by a neurosurgeon at [facility] last week when she was transferred and they did not recommend surgery or brace. We do note have neurosx regulatory submissions associate at [facility]. Pt. denies increased in back pain and has no neuro deficts. I spoke with neurosurgeron, Dr. Ulrich, at [facility] and discussed case. He feels if pt. is not having increased pain or neuro deficits then no acute intervention is needed. On reexam pt. sitting up and is eager to go home. Ambulatory to bathroom with assistance. WIll dc back to intermediate. Pt to fu with RP neurosxs in clinic. TO f.u with ortho for eblow fx. TYlenol for pain as directed. WIll return to er if sxs change or worsen. Pt. and understand and agree with plan. - Diagnoses Differential Diagnosis/HQI/PQRI: Positive: Contusion(s), Fracture, Sprain, Strain Provider Diagnoses: Humerus distal fracture, Thoracic vertebral fracture Discharge ED - Sign-Out/Discharge Documenting (check all that apply): Patient Departure - Discharge Plan Condition: Good Disposition: HOME Patient Education Materials: Elbow Fracture (ED), Thoracolumbar Fracture (ED) Referrals: Yesika Rubio DO [Primary Care Provider] - Denzel Smith MD [Medical Doctor] - Additional Instructions: Schedule a follow up appointment with the orthopedic clinic Keep splint in place Ice and elevate intermittently Tylenol for pain as directed Return to ER if symptoms change or worsen Schedule follow up appointment with Tahir Cardona neurosurgery: [place] [address] - Billing Disposition and Condition Condition: GOOD Disposition: Home
[2019-06-15 12:46] LABS: ABS Basophils 0.1 10^3/ul (0-0.2); ABS Eosinophils 0.2 10^3/ul (0-0.6); ABS Lymphocytes 0.9 10^3/ul (1.0-4.8); ABS Monocytes 0.7 10^3/ul (0-0.8); ABS Neutrophils 5.2 10^3/ul (1.5-7.7); Eosinophil % 2.6 %; Hematocrit 37 % (35-47); Hemoglobin 12.9 g/dL (12.0-16.0); Lymphocyte % 12.5 %; Mean Corpuscular HGB Conc 35 g/dL (31-36); Mean Corpuscular Hemoglobin 32 pg (27-31); Mean Corpuscular Volume 93 fL (80-97); Mean Platelet Volume 7.6 fL (7.4-10.4); Nucleated Red Blood Cells % 0.1; Platelet Count 283 10^3/uL (150-450); Red Blood Count 4.01 10^6 /uL (3.70-4.87); Red Cell Distribution Width 14 % (10-15)
[2019-06-15 13:22] LABS: Albumin 3.7 g/dL (3.2-5.2); Calcium 9.2 mg/dL (8.6-10.3); Potassium 4.1 mmol/L (3.5-5.0); Total Bilirubin 0.7 mg/dL (0.2-1.0)
[2019-06-15 13:28] LABS: Albumin/Globulin Ratio 1.2 (1-3); BUN/Creatinine Ratio 18.5 (8-20); EGFR African American 104.8 (>60); EGFR Non-African American 86.6 (>60); Total Protein 6.7 g/dL (6.4-8.9)
[2019-06-15 18:03] VITALS: BP 150/110
== END 2019-06-15 17:58 | disposition home or self-care (01) ==
LOC: ED 12:14
DX: S42.401A Unspecified fracture of lower end of right humerus, initial encounter for closed fracture (principal); R07.9 Chest pain, unspecified; W19.XXXA Unspecified fall, initial encounter; Y92.9 Unspecified place or not applicable; R94.31 Abnormal electrocardiogram [ECG] [EKG]; J44.9 Chronic obstructive pulmonary disease, unspecified; E78.00 Pure hypercholesterolemia, unspecified; I10 Essential (primary) hypertension; Z79.01 Long term (current) use of anticoagulants; Z87.891 Personal history of nicotine dependence; Z79.899 Other long term (current) drug therapy
CPT/HCPCS: 36415; 70450; 71045; 72125; 80053; 84484; 85025; 93005; 99283; A9270-GY

== ENCOUNTER 2019-11-06 05:22 | Inpatient (IN) ==
[2019-11-06 06:40] LABS: ABS Basophils 0.1 10^3/ul (0-0.2); ABS Lymphocytes 0.6 10^3/ul (1.0-4.8); ABS Monocytes 0.6 10^3/ul (0-0.8); Eosinophil % 0.1 %; Hematocrit 38 % (35-47); Hemoglobin 13.6 g/dL (12.0-16.0); Lymphocyte % 5.5 %; Mean Corpuscular HGB Conc 35 g/dL (31-36); Mean Corpuscular Hemoglobin 32 pg (27-31); Mean Corpuscular Volume 91 fL (80-97); Mean Platelet Volume 7.4 fL (7.4-10.4); Platelet Count 237 10^3/uL (150-450); Red Blood Count 4.21 10^6 /uL (3.70-4.87); Red Cell Distribution Width 13 % (10-15); White Blood Count 10.2 10^3/uL (3.5-10.8)
[2019-11-06 07:00] LABS: Albumin 4.2 g/dL (3.2-5.2); Albumin/Globulin Ratio 1.6 (1-3); BUN/Creatinine Ratio 19.7 (8-20); Calcium 9.4 mg/dL (8.6-10.3); EGFR Non-African American 85.1 (>60); Globulin 2.7 g/dL (2-4); Total Bilirubin 1.2 mg/dL (0.2-1.0); Total Protein 6.9 g/dL (6.4-8.9)
[2019-11-06] MEDS: Aspirin EC 81 mg TAB.EC (enteric coated) PO SCH (13:55)
[2019-11-06] MEDS: Heparin 5000 UNITS/ML 1 mL VIAL SUBCUT SCH ×2 (13:56→21:01)
[2019-11-06] MEDS: NS 0.9% 1000 ml BAG 1,000 ML IV SCH (17:34)
[2019-11-06] MEDS: Senna TAB 8.6 mg TAB PO SCH (20:54)
[2019-11-06 23:42] LABS: Urine Appearance Cloudy; Urine Bilirubin Negative (Negative); Urine Blood 2+ (Negative); Urine Color Yellow; Urine Glucose Negative (Negative); Urine Ketones Negative (Negative); Urine Nitrite Negative (Negative); Urine Protein Negative (Negative); Urine Specific Gravity 1.004 (1.010-1.030); Urine Urobilinogen Negative (Negative)
[2019-11-06 23:47] LABS: Urine Bacteria 1+ (Absent); Urine Red Blood Cell Trace(0-2/hpf) (Absent); Urine Squamous Epithelial Cell Present (Absent); Urine White Blood Cell Trace(0-5/hpf) (Absent)
[2019-11-07] MEDS ORDERED: cefTRIAXone 1 gm/50 mL NS BAG 1 GM/50 ML BAG IVPB SCH (02:00)
[2019-11-07] MEDS: Heparin 5000 UNITS/ML 1 mL VIAL SUBCUT SCH ×3 (05:09→21:46)
[2019-11-07] MEDS: NS 0.9% 1000 ml BAG 1,000 ML IV SCH (06:15)
[2019-11-07] MEDS: DULoxetine DR 60 mg CAP PO SCH (08:33)
[2019-11-07] MEDS: Senna TAB 8.6 mg TAB PO SCH ×2 (08:33→21:45)
[2019-11-07] MEDS: Aspirin EC 81 mg TAB.EC (enteric coated) PO SCH (08:33)
[2019-11-07] MEDS ORDERED: Heparin 5000 UNITS/ML 1 mL VIAL SUBCUT SCH (22:00)
[2019-11-08] MEDS: Heparin 5000 UNITS/ML 1 mL VIAL SUBCUT SCH ×3 (05:43→21:44)
[2019-11-08] MEDS: DULoxetine DR 60 mg CAP PO SCH (08:38)
[2019-11-08] MEDS: Senna TAB 8.6 mg TAB PO SCH ×2 (08:38→21:46)
[2019-11-08] MEDS: Aspirin EC 81 mg TAB.EC (enteric coated) PO SCH (08:39)
[2019-11-09] MEDS: Heparin 5000 UNITS/ML 1 mL VIAL SUBCUT SCH ×3 (06:04→21:16)
[2019-11-09] MEDS: Senna TAB 8.6 mg TAB PO SCH ×2 (10:12→21:14)
[2019-11-09] MEDS: DULoxetine DR 60 mg CAP PO SCH (10:12)
[2019-11-09] MEDS: Aspirin EC 81 mg TAB.EC (enteric coated) PO SCH (10:13)
[2019-11-10] MEDS: Heparin 5000 UNITS/ML 1 mL VIAL SUBCUT SCH ×3 (05:06→22:52)
[2019-11-10] MEDS: DULoxetine DR 60 mg CAP PO SCH (08:54)
[2019-11-10] MEDS: Aspirin EC 81 mg TAB.EC (enteric coated) PO SCH (08:55)
[2019-11-10] MEDS: Senna TAB 8.6 mg TAB PO SCH ×2 (08:58→22:49)
[2019-11-10 21:29] LABS: ABS Lymphocytes 0.8 10^3/ul (1.0-4.8); ABS Monocytes 0.9 10^3/ul (0-0.8); ABS Neutrophils 6.1 10^3/ul (1.5-7.7); Eosinophil % 0.3 %; Hematocrit 32 % (35-47); Hemoglobin 11.3 g/dL (12.0-16.0); Lymphocyte % 9.9 %; Mean Corpuscular HGB Conc 36 g/dL (31-36); Mean Corpuscular Hemoglobin 33 pg (27-31); Mean Corpuscular Volume 92 fL (80-97); Nucleated Red Blood Cells % 0.1; Platelet Count 263 10^3/uL (150-450); Red Blood Count 3.49 10^6 /uL (3.70-4.87); Red Cell Distribution Width 13 % (10-15); White Blood Count 7.8 10^3/uL (3.5-10.8)
[2019-11-10 21:44] LABS: Albumin 3.4 g/dL (3.2-5.2); Albumin/Globulin Ratio 1.2 (1-3); BUN/Creatinine Ratio 22.4 (8-20); C Reactive Protein 114.43 mg/L (<8.01); Calcium 8.6 mg/dL (8.6-10.3); EGFR African American 145.2 (>60); Globulin 2.8 g/dL (2-4); Magnesium 1.8 mg/dL (1.9-2.7); Potassium 3.7 mmol/L (3.5-5.0); Total Bilirubin 0.9 mg/dL (0.2-1.0); Total Protein 6.2 g/dL (6.4-8.9)
[2019-11-11 03:41] LABS: Urine Appearance Clear; Urine Bilirubin Negative (Negative); Urine Blood Negative (Negative); Urine Color Yellow; Urine Glucose Negative (Negative); Urine Ketones Negative (Negative); Urine Nitrite Negative (Negative); Urine Protein Negative (Negative); Urine Specific Gravity 1.014 (1.010-1.030); Urine Urobilinogen Negative (Negative)
[2019-11-11] MEDS: Heparin 5000 UNITS/ML 1 mL VIAL SUBCUT SCH ×3 (07:38→20:12)
[2019-11-11] MEDS: Aspirin EC 81 mg TAB.EC (enteric coated) PO SCH (07:57)
[2019-11-11] MEDS: DULoxetine DR 60 mg CAP PO SCH (07:57)
[2019-11-11] MEDS: Senna TAB 8.6 mg TAB PO SCH ×2 (07:57→20:02)
[2019-11-12] MEDS: Heparin 5000 UNITS/ML 1 mL VIAL SUBCUT SCH ×3 (06:11→22:49)
[2019-11-12] MEDS: Senna TAB 8.6 mg TAB PO SCH ×2 (09:06→22:48)
[2019-11-12] MEDS: Aspirin EC 81 mg TAB.EC (enteric coated) PO SCH (09:06)
[2019-11-12] MEDS: DULoxetine DR 60 mg CAP PO SCH (09:08)
[2019-11-12] MEDS ORDERED: NS 0.9% 1000 ml BAG 1,000 ML IV ONE (15:45)
[2019-11-12 16:25] LABS: ABS Lymphocytes 0.5 10^3/ul (1.0-4.8); ABS Monocytes 0.4 10^3/ul (0-0.8); ABS Neutrophils 5.4 10^3/ul (1.5-7.7); Eosinophil % 0.1 %; Hematocrit 37 % (35-47); Hemoglobin 12.9 g/dL (12.0-16.0); Lymphocyte % 8.3 %; Mean Corpuscular HGB Conc 34 g/dL (31-36); Mean Corpuscular Hemoglobin 31 pg (27-31); Mean Corpuscular Volume 91 fL (80-97); Mean Platelet Volume 7.5 fL (7.4-10.4); Platelet Count 343 10^3/uL (150-450); Red Cell Distribution Width 13 % (10-15); White Blood Count 6.3 10^3/uL (3.5-10.8)
[2019-11-12 16:40] LABS: C Reactive Protein 84.7 mg/L (<8.01); Calcium 9.5 mg/dL (8.6-10.3); EGFR African American 141.9 (>60); EGFR Non-African American 117.3 (>60)
[2019-11-12] MEDS: cefTRIAXone 1 gm/50 mL NS BAG 1 GM/50 ML BAG IVPB SCH (19:07)
[2019-11-13] MEDS: Heparin 5000 UNITS/ML 1 mL VIAL SUBCUT SCH ×2 (05:52→06:10)
[2019-11-13 06:48] LABS: ABS Basophils 0.1 10^3/ul (0-0.2); ABS Lymphocytes 0.9 10^3/ul (1.0-4.8); ABS Monocytes 0.9 10^3/ul (0-0.8); ABS Neutrophils 5.8 10^3/ul (1.5-7.7); Eosinophil % 0.4 %; Hematocrit 33 % (35-47); Hemoglobin 11.6 g/dL (12.0-16.0); Lymphocyte % 11.8 %; Mean Corpuscular HGB Conc 35 g/dL (31-36); Mean Corpuscular Hemoglobin 32 pg (27-31); Mean Corpuscular Volume 92 fL (80-97); Mean Platelet Volume 7.6 fL (7.4-10.4); Platelet Count 328 10^3/uL (150-450); Red Cell Distribution Width 13 % (10-15); White Blood Count 7.7 10^3/uL (3.5-10.8)
[2019-11-13 06:51] LABS: INR 1.1 (0.82-1.09)
[2019-11-13 07:04] LABS: BUN/Creatinine Ratio 33.3 (8-20); Calcium 8.8 mg/dL (8.6-10.3); EGFR Non-African American 100.8 (>60); Potassium 3.5 mmol/L (3.5-5.0)
[2019-11-13 07:06] LABS: Digoxin 1.4 ng/ml (0.8-2.0)
[2019-11-13] MEDS: Aspirin EC 81 mg TAB.EC (enteric coated) PO SCH (09:06)
[2019-11-13] MEDS: DULoxetine DR 60 mg CAP PO SCH (09:06)
[2019-11-13] MEDS: Senna TAB 8.6 mg TAB PO SCH (09:06)
[2019-11-13] MEDS ORDERED: Senna TAB 8.6 mg TAB PO PRN (09:20)
[2019-11-13] MEDS ORDERED: Cyanocobalamin INJ 1,000 MCG/ML VIAL 1 ML VIAL IM ONE (09:20)
[2019-11-13] MEDS: cefTRIAXone 1 gm/50 mL NS BAG 1 GM/50 ML BAG IVPB SCH (16:05)
[2019-11-13] MEDS ORDERED: Enoxaparin 40 MG/0.4 ML SYR SUBCUT SCH (21:00)
[2019-11-14] MEDS ORDERED: Lactated Ringers 1000 ml BAG 1,000 ML IV SCH (05:00)
[2019-11-14] MEDS: DULoxetine DR 60 mg CAP PO SCH (07:31)
[2019-11-14] MEDS: Aspirin EC 81 mg TAB.EC (enteric coated) PO SCH (07:31)
[2019-11-14 08:12] VITALS: BP 141/91
== END 2019-11-14 10:30 | DRG 552 ==
LOC: ED 05:22 → MEDTELE 11:50
PROVIDERS: ADMIT Internal Medicine; ATTEND Internal Medicine

== ENCOUNTER 2019-12-21 18:59 | Inpatient (IN) ==
[2019-12-21] MEDS ORDERED: Al Hydrox/Mg Hydrox/Simet LIQ 30 ML UDC PO PRN (22:28)
[2019-12-21] MEDS ORDERED: Senna TAB 8.6 mg TAB PO PRN (22:33)
[2019-12-21] MEDS ORDERED: Cefepime 2 GM in Dextrose 2 GM/50 ML BAG IV ONE (22:36)
[2019-12-21 22:37] LABS: ABS Lymphocytes 1.1 10^3/ul (1.0-4.8); ABS Monocytes 0.7 10^3/ul (0-0.8); ABS Neutrophils 3.7 10^3/ul (1.5-7.7); Eosinophil % 0.9 %; Hematocrit 34 % (35-47); Hemoglobin 11.5 g/dL (12.0-16.0); Lymphocyte % 20.3 %; Mean Corpuscular HGB Conc 34 g/dL (31-36); Mean Corpuscular Hemoglobin 31 pg (27-31); Mean Corpuscular Volume 90 fL (80-97); Mean Platelet Volume 7.3 fL (7.4-10.4); Platelet Count 340 10^3/uL (150-450); Red Blood Count 3.75 10^6 /uL (3.70-4.87); Red Cell Distribution Width 14 % (10-15); White Blood Count 5.6 10^3/uL (3.5-10.8)
[2019-12-21 22:56] LABS: Albumin 3.1 g/dL (3.2-5.2); EGFR African American 141.9 (>60); EGFR Non-African American 117.3 (>60); Potassium 3.9 mmol/L (3.5-5.0); Total Bilirubin 0.6 mg/dL (0.2-1.0); Total Protein 6.1 g/dL (6.4-8.9)
[2019-12-21] MEDS ORDERED: metroNIDAZOLE IV 500 MG/100ML 500 MG/100 ML BAG IVPB SCH (23:00)
[2019-12-21] MEDS ORDERED: Vancomycin 1,000 MG in NS 0.9% 250 ml 250 ML IVPB ONE (23:00)
[2019-12-21] MEDS ORDERED: Lidocaine PATCH 5% PATCH TRANSDERM ONE (23:01)
[2019-12-21 23:38] LABS: C Reactive Protein 30.8 mg/L (<8.01)
[2019-12-22 00:17] LABS: Digoxin 1.2 ng/ml (0.8-2.0)
[2019-12-22] MEDS: Lidocaine PATCH 5% PATCH TRANSDERM SCH ×2 (01:15→09:34)
[2019-12-22 01:48] LABS: Erythrocyte Sed Rate 30 mm/Hr (0-29)
[2019-12-22] MEDS ORDERED: Vancomycin per Pharmacy 1 EA NOTE FOLLOW UP PRN (03:53)
[2019-12-22] MEDS: Heparin 5000 UNITS/ML 1 mL VIAL SUBCUT SCH ×3 (06:16→21:10)
[2019-12-22] MEDS: DULoxetine DR 60 mg CAP PO SCH (09:34)
[2019-12-22] MEDS ORDERED: Cefepime 2 GM in Dextrose 2 GM/50 ML BAG IV SCH (11:00)
[2019-12-22] MEDS: NS 0.9% 1000 ml BAG 1,000 ML IV SCH (11:40)
[2019-12-22] MEDS ORDERED: Vancomycin 750 MG in NS 0.9% 250 ml 250 ML IVPB SCH (14:00)
[2019-12-22] MEDS: ceFAZolin 2 GM PREMIX 2 GM/50 ML BAG IVPB SCH ×2 (14:53→21:10)
[2019-12-22] MEDS ORDERED: metroNIDAZOLE IV 500 MG/100ML 500 MG/100 ML BAG IVPB SCH (18:00)
[2019-12-22] MEDS: Lidocaine Patch REMOVE PATCH PATCH OFF SCH (21:21)
[2019-12-23] MEDS: ceFAZolin 2 GM PREMIX 2 GM/50 ML BAG IVPB SCH ×3 (04:26→21:37)
[2019-12-23 04:48] LABS: ABS Lymphocytes 1.1 10^3/ul (1.0-4.8); ABS Monocytes 0.8 10^3/ul (0-0.8); ABS Neutrophils 3.9 10^3/ul (1.5-7.7); Eosinophil % 0.5 %; Hematocrit 31 % (35-47); Hemoglobin 10.9 g/dL (12.0-16.0); Lymphocyte % 18.7 %; Mean Corpuscular HGB Conc 35 g/dL (31-36); Mean Corpuscular Hemoglobin 31 pg (27-31); Mean Corpuscular Volume 89 fL (80-97); Mean Platelet Volume 7.7 fL (7.4-10.4); Nucleated Red Blood Cells % 0.1; Platelet Count 303 10^3/uL (150-450); Red Blood Count 3.53 10^6 /uL (3.70-4.87); Red Cell Distribution Width 14 % (10-15); White Blood Count 5.9 10^3/uL (3.5-10.8)
[2019-12-23 05:10] LABS: BUN/Creatinine Ratio 19.6 (8-20); Calcium 8.4 mg/dL (8.6-10.3); EGFR African American 156.2 (>60); EGFR Non-African American 129.1 (>60); Potassium 3.3 mmol/L (3.5-5.0)
[2019-12-23] MEDS: Heparin 5000 UNITS/ML 1 mL VIAL SUBCUT SCH ×3 (05:31→21:37)
[2019-12-23] MEDS: NS 0.9% 1000 ml BAG 1,000 ML IV SCH (07:41)
[2019-12-23] MEDS: DULoxetine DR 60 mg CAP PO SCH (10:26)
[2019-12-23] MEDS: Lidocaine PATCH 5% PATCH TRANSDERM SCH (10:28)
[2019-12-23] MEDS ORDERED: Vancomycin Trough Check NOTE FOLLOW UP ONE (13:30)
[2019-12-23 16:05] LABS: EGFR African American 138.7 (>60); EGFR Non-African American 114.6 (>60); Vancomycin Trough 2.9 mcg/mL
[2019-12-23] MEDS: Lidocaine Patch REMOVE PATCH PATCH OFF SCH (21:38)
[2019-12-24] MEDS: ceFAZolin 2 GM PREMIX 2 GM/50 ML BAG IVPB SCH ×3 (05:34→21:43)
[2019-12-24] MEDS: Heparin 5000 UNITS/ML 1 mL VIAL SUBCUT SCH ×3 (05:34→21:43)
[2019-12-24 05:49] LABS: ABS Lymphocytes 1.1 10^3/ul (1.0-4.8); ABS Monocytes 0.7 10^3/ul (0-0.8); ABS Neutrophils 3.5 10^3/ul (1.5-7.7); Eosinophil % 0.7 %; Hematocrit 31 % (35-47); Hemoglobin 10.6 g/dL (12.0-16.0); Lymphocyte % 19.7 %; Mean Corpuscular HGB Conc 35 g/dL (31-36); Mean Corpuscular Hemoglobin 31 pg (27-31); Mean Corpuscular Volume 89 fL (80-97); Mean Platelet Volume 7.4 fL (7.4-10.4); Platelet Count 292 10^3/uL (150-450); Red Blood Count 3.44 10^6 /uL (3.70-4.87); Red Cell Distribution Width 14 % (10-15); White Blood Count 5.4 10^3/uL (3.5-10.8)
[2019-12-24 06:04] LABS: BUN/Creatinine Ratio 16.3 (8-20); C Reactive Protein 45.36 mg/L (<8.01); Calcium 8.4 mg/dL (8.6-10.3); EGFR African American 168.9 (>60); EGFR Non-African American 139.6 (>60); Potassium 3.2 mmol/L (3.5-5.0)
[2019-12-24 08:36] LABS: Magnesium 1.7 mg/dL (1.9-2.7)
[2019-12-24] MEDS: DULoxetine DR 60 mg CAP PO SCH (08:44)
[2019-12-24] MEDS: Lidocaine PATCH 5% PATCH TRANSDERM SCH (08:44)
[2019-12-24] MEDS ORDERED: Magnesium Sulfate 2 gm BAG 2 GM/50 ML BAG IVPB ONE (09:50)
[2019-12-24] MEDS: Potassium Chlor 20 meq TAB.ER PO SCH ×3 (10:20→17:45)
[2019-12-24] MEDS: Lidocaine Patch REMOVE PATCH PATCH OFF SCH (21:46)
[2019-12-25] MEDS: ceFAZolin 2 GM PREMIX 2 GM/50 ML BAG IVPB SCH ×3 (04:43→22:23)
[2019-12-25 04:55] LABS: ABS Monocytes 0.7 10^3/ul (0-0.8); ABS Neutrophils 4.1 10^3/ul (1.5-7.7); Eosinophil % 0.7 %; Hematocrit 29 % (35-47); Hemoglobin 10.3 g/dL (12.0-16.0); Lymphocyte % 17.7 %; Mean Corpuscular HGB Conc 35 g/dL (31-36); Mean Corpuscular Hemoglobin 31 pg (27-31); Mean Corpuscular Volume 89 fL (80-97); Mean Platelet Volume 7.6 fL (7.4-10.4); Nucleated Red Blood Cells % 0.1; Platelet Count 294 10^3/uL (150-450); Red Blood Count 3.27 10^6 /uL (3.70-4.87); Red Cell Distribution Width 15 % (10-15); White Blood Count 5.9 10^3/uL (3.5-10.8)
[2019-12-25 05:10] LABS: Calcium 8.1 mg/dL (8.6-10.3); Potassium 4.4 mmol/L (3.5-5.0)
[2019-12-25 05:15] LABS: BUN/Creatinine Ratio 28.9 (8-20); EGFR African American 194.8 (>60)
[2019-12-25] MEDS: Heparin 5000 UNITS/ML 1 mL VIAL SUBCUT SCH ×3 (06:15→22:18)
[2019-12-25] MEDS: Lidocaine PATCH 5% PATCH TRANSDERM SCH (09:19)
[2019-12-25] MEDS: DULoxetine DR 60 mg CAP PO SCH (09:21)
[2019-12-25] MEDS: Lidocaine Patch REMOVE PATCH PATCH OFF SCH (22:23)
[2019-12-26] MEDS: Heparin 5000 UNITS/ML 1 mL VIAL SUBCUT SCH ×3 (06:29→22:12)
[2019-12-26] MEDS: ceFAZolin 2 GM PREMIX 2 GM/50 ML BAG IVPB SCH ×3 (06:32→22:14)
[2019-12-26] MEDS: DULoxetine DR 60 mg CAP PO SCH (09:21)
[2019-12-26] MEDS: Lidocaine PATCH 5% PATCH TRANSDERM SCH (09:25)
[2019-12-26] MEDS: Lidocaine Patch REMOVE PATCH PATCH OFF SCH (22:02)
[2019-12-27] MEDS ORDERED: NS 0.9% 500 ml BAG 500 ML IV SCH (03:00)
[2019-12-27] MEDS: ceFAZolin 2 GM PREMIX 2 GM/50 ML BAG IVPB SCH ×2 (04:55→13:15)
[2019-12-27] MEDS: Heparin 5000 UNITS/ML 1 mL VIAL SUBCUT SCH ×2 (06:21→14:15)
[2019-12-27 06:25] LABS: ABS Eosinophils 0.1 10^3/ul (0-0.6); ABS Lymphocytes 1.2 10^3/ul (1.0-4.8); ABS Monocytes 0.5 10^3/ul (0-0.8); ABS Neutrophils 5.7 10^3/ul (1.5-7.7); Hematocrit 28 % (35-47); Hemoglobin 9.9 g/dL (12.0-16.0); Lymphocyte % 15.7 %; Mean Corpuscular HGB Conc 35 g/dL (31-36); Mean Corpuscular Hemoglobin 31 pg (27-31); Mean Corpuscular Volume 89 fL (80-97); Mean Platelet Volume 7.1 fL (7.4-10.4); Platelet Count 285 10^3/uL (150-450); Red Blood Count 3.18 10^6 /uL (3.70-4.87); Red Cell Distribution Width 15 % (10-15); White Blood Count 7.4 10^3/uL (3.5-10.8)
[2019-12-27 06:45] LABS: BUN/Creatinine Ratio 17.8 (8-20); C Reactive Protein 36.3 mg/L (<8.01); Calcium 8.3 mg/dL (8.6-10.3); EGFR African American 160.2 (>60); EGFR Non-African American 132.4 (>60); Potassium 4.3 mmol/L (3.5-5.0)
[2019-12-27] MEDS: DULoxetine DR 60 mg CAP PO SCH (09:29)
[2019-12-27] MEDS: Lidocaine PATCH 5% PATCH TRANSDERM SCH (09:35)
[2019-12-27 11:55] VITALS: BP 103/67
== END 2019-12-27 16:43 | DRG 158 ==
LOC: ED 18:59 → SSU 23:00
PROVIDERS: ADMIT Pediatrics; ATTEND Internal Medicine

== ENCOUNTER 2020-08-21 21:38 | Inpatient (IN) ==
[2020-08-21] MEDS ORDERED: NS 0.9% 1000 ml BAG 1,000 ML IV ONE ×2 (21:42→23:34)
[2020-08-21 22:20] LABS: ABS Basophils 0.1 10^3/ul (0-0.2); ABS Lymphocytes 0.7 10^3/ul (1.0-4.8); ABS Monocytes 0.5 10^3/ul (0-0.8); ABS Neutrophils 6.8 10^3/ul (1.5-7.7); Eosinophil % 0.2 %; Hematocrit 35 % (35-47); Hemoglobin 11.9 g/dL (12.0-16.0); Lymphocyte % 8.3 %; Mean Corpuscular HGB Conc 34 g/dL (31-36); Mean Corpuscular Hemoglobin 31 pg (27-31); Mean Corpuscular Volume 92 fL (80-97); Mean Platelet Volume 8.1 fL (7.4-10.4); Platelet Count 224 10^3/uL (150-450); Red Blood Count 3.84 10^6 /uL (3.70-4.87); Red Cell Distribution Width 15 % (10-15); White Blood Count 8.1 10^3/uL (3.5-10.8)
[2020-08-21 22:37] LABS: ALT 10 U/L (7-52); AST 15 U/L (13-39); Albumin 3.7 g/dL (3.2-5.2); Albumin/Globulin Ratio 1.2 (1-3); Alkaline Phosphatase 85 U/L (34-104); Anion Gap 9 mmol/L (2-11); Blood Urea Nitrogen 15 mg/dL (6-24); CO2 Carbon Dioxide 24 mmol/L (22-32); Calcium 9.1 mg/dL (8.6-10.3); Chloride 106 mmol/L (101-111); Digoxin 0.9 ng/ml (0.8-2.0); EGFR African American 74.7 (>60); EGFR Non-African American 61.7 (>60); Globulin 3.1 g/dL (2-4); Glucose 162 mg/dL (70-100); Potassium 3.4 mmol/L (3.5-5.0); Sodium 139 mmol/L (135-145); Total Protein 6.8 g/dL (6.4-8.9)
[2020-08-21 22:39] LABS: Troponin I 0.01 ng/mL (<0.03)
[2020-08-21 22:52] LABS: TSH Ultra Thyroid Stim Horm 5.02 mcIU/mL (0.34-5.60)
[2020-08-21 23:08] LABS: Urine Appearance Cloudy; Urine Bilirubin Negative (Negative); Urine Blood Negative (Negative); Urine Color Yellow; Urine Glucose Negative (Negative); Urine Ketones Negative (Negative); Urine Nitrite Positive (Negative); Urine Protein 1+(30 mg/dL) (Negative); Urine Specific Gravity 1.012 (1.002-1.030); Urine Urobilinogen Negative (Negative)
[2020-08-21 23:15] LABS: Urine Bacteria 1+ (Absent); Urine Granular Casts Present (Absent); Urine Red Blood Cell 1+(3-5/hpf) (Absent); Urine Squamous Epithelial Cell Present (Absent); Urine White Blood Cell 3+(>20/hpf) (Absent)
[2020-08-21] MEDS ORDERED: cefTRIAXone 1 gm/50 mL NS BAG 1 GM/50 ML BAG IV ONE (23:34)
[2020-08-22] MEDS ORDERED: Magnesium Hydroxide LIQ 30 ML UDC PO PRN (00:34)
[2020-08-22 01:23] LABS: Magnesium 1.8 mg/dL (1.9-2.7); Vitamin B12 259 pg/mL (180-914)
[2020-08-22] MEDS ORDERED: Magnesium Sulfate 2 gm BAG 2 GM/50 ML BAG IVPB ONE (01:41)
[2020-08-22 01:51] LABS: Urine Benzodiazepine Screen None Detected (None Detect); Urine Cannabinoids Screen None Detected (None Detect); Urine Opiates Screen None Detected (None Detect)
[2020-08-22] MEDS ORDERED: NS 0.9% w/ 40 Meq KCL 1000 ML 1,000 ML IV SCH (02:00)
[2020-08-22] MEDS: NS 0.9% w/ 40 Meq KCL 1000 ML 1,000 ML IV SCH ×2 (04:28→19:08)
[2020-08-22] MEDS: Enoxaparin 40 MG/0.4 ML SYR SUBCUT SCH (05:09)
[2020-08-22 06:13] LABS: Total Iron Binding Capacity 308 mcg/dL (250-450); Transferrin 220 mg/dL (203-362)
[2020-08-22 06:16] LABS: Corrected Retic Count 1.6 % (0.5-1.5); Hematocrit for Retic CNT 36 % (35-47); Immature Retic Fraction 0.37; RBC Retic Count 3.84 10^6/uL (3.70-4.87)
[2020-08-22 06:17] LABS: % Iron Saturation 9 % (15-55); Iron 27 ug/dL (50-212); Unsaturated Iron Binding < 293 ug/dL
[2020-08-22 06:35] LABS: Ferritin 88.5 ng/mL (11-307)
[2020-08-22 06:40] LABS: Folate > 20.00 ng/mL (5.90-24.80)
[2020-08-22] MEDS: Polyethylene Glycol 3350 17 GM PACKET PO SCH (09:21)
[2020-08-22] MEDS: DULoxetine DR 30 mg CAP PO SCH (09:22)
[2020-08-22] MEDS ORDERED: Lorazepam PYXIS KEY PRN (18:40)
[2020-08-22] MEDS ORDERED: LORazepam 2 mg VIAL 1 ml IV PUSH ONE (18:41)
[2020-08-22] MEDS: Senna TAB 8.6 mg TAB PO SCH (19:26)
[2020-08-22] MEDS: cefTRIAXone 1 gm/50 mL NS BAG 1 GM/50 ML BAG IVPB SCH (23:46)
[2020-08-23] MEDS ORDERED: cefTRIAXone 1 gm/50 mL NS BAG 1 GM/50 ML BAG IVPB SCH (01:00)
[2020-08-23] MEDS: Enoxaparin 40 MG/0.4 ML SYR SUBCUT SCH (05:25)
[2020-08-23 05:57] LABS: Calcium 8.8 mg/dL (8.6-10.3); EGFR African American 155.8 (>60); EGFR Non-African American 128.8 (>60); Potassium 3.7 mmol/L (3.5-5.0)
[2020-08-23] MEDS: DULoxetine DR 30 mg CAP PO SCH (10:43)
[2020-08-23] MEDS: Polyethylene Glycol 3350 17 GM PACKET PO SCH (10:58)
[2020-08-23] MEDS: NS 0.9% w/ 40 Meq KCL 1000 ML 1,000 ML IV SCH (12:24)
[2020-08-23] MEDS ORDERED: Iohexol 350 (CONTRAST) 100 ML PAK IV ONE (12:41)
[2020-08-23] MEDS: Senna TAB 8.6 mg TAB PO SCH (19:16)
[2020-08-23] MEDS: cefTRIAXone 1 gm/50 mL NS BAG 1 GM/50 ML BAG IVPB SCH (23:40)
[2020-08-24] MEDS: NS 0.9% w/ 40 Meq KCL 1000 ML 1,000 ML IV SCH (06:22)
[2020-08-24] MEDS: DULoxetine DR 30 mg CAP PO SCH (11:04)
[2020-08-24] MEDS: Polyethylene Glycol 3350 17 GM PACKET PO SCH (11:09)
[2020-08-24 12:52] VITALS: BP 152/98
[2020-08-24 20:39] LABS: HDL Cholesterol 50.2 mg/dL
== END 2020-08-24 13:49 | DRG 65 ==
LOC: ED 21:38 → MEDTELE 08-22 01:53
PROVIDERS: ADMIT Pediatrics; ATTEND Student in an Organized Health Care Education/Training Program

== ENCOUNTER 2021-03-17 13:18 | Inpatient (IN) ==
[2021-03-17] MEDS ORDERED: NS 0.9% 1000 ml BAG 1,000 ML IV ONE (13:28)
[2021-03-17 13:59] LABS: ABS Eosinophils 0.1 10^3/ul (0-0.6); ABS Monocytes 0.5 10^3/ul (0-0.8); Eosinophil % 2.6 %; Hematocrit 33 % (35-47); Hemoglobin 11.2 g/dL (12.0-16.0); Lymphocyte % 21.7 %; Mean Corpuscular HGB Conc 34 g/dL (31-36); Mean Corpuscular Hemoglobin 31 pg (27-31); Mean Corpuscular Volume 91 fL (80-97); Mean Platelet Volume 7.6 fL (7.4-10.4); Platelet Count 222 10^3/uL (150-450); Red Blood Count 3.61 10^6 /uL (3.70-4.87); Red Cell Distribution Width 15 % (10-15); White Blood Count 4.8 10^3/uL (3.5-10.8)
[2021-03-17 14:14] LABS: Albumin 3.1 g/dL (3.2-5.2); Albumin/Globulin Ratio 1.3 (1-3); Calcium 8.2 mg/dL (8.6-10.3); Globulin 2.4 g/dL (2-4); Potassium 3.3 mmol/L (3.5-5.0); Total Bilirubin 0.4 mg/dL (0.2-1.0); Total Protein 5.5 g/dL (6.4-8.9)
[2021-03-17 14:18] LABS: Troponin I 0.01 ng/mL (<0.03)
[2021-03-17 14:26] LABS: INR 2.69 (0.86-1.15)
[2021-03-17] MEDS ORDERED: Iohexol 350 (CONTRAST) 500 ML MDV IV ONE (15:31)
[2021-03-17 17:54] LABS: Urine Appearance Clear; Urine Bilirubin Negative (Negative); Urine Blood Negative (Negative); Urine Color Yellow; Urine Glucose Negative (Negative); Urine Ketones Negative (Negative); Urine Nitrite Negative (Negative); Urine Protein Negative (Negative); Urine Specific Gravity 1.015 (1.002-1.030); Urine Urobilinogen Negative (Negative)
[2021-03-17 18:04] LABS: Urine Bacteria Absent (Absent); Urine Red Blood Cell Absent (Absent); Urine Squamous Epithelial Cell Present (Absent); Urine White Blood Cell 1+(6-10/hpf) (Absent)
[2021-03-17] MEDS ORDERED: NS 0.9% 1000 ml BAG 1,000 ML IV SCH (19:30)
[2021-03-17] MEDS ORDERED: Metoprolol Tartrate 5 mg VIAL 5 ml VIAL (1 mg/ml) IV PRN (19:30)
[2021-03-17] MEDS: cefTRIAXone 1 gm/50 mL NS BAG 1 GM/50 ML BAG IVPB SCH (21:30)
[2021-03-17 22:02] LABS: Rapid COVID-19 Molecular Undetected (Undetected)
[2021-03-18] MEDS: KCL 10 MEQ/50 ML IVPREMIX 10 MEQ/50 ML BAG IV SCH ×2 (00:17→01:49)
[2021-03-18] MEDS ORDERED: Pantoprazole VIAL 40 MG VIAL IV SCH (09:00)
[2021-03-18 09:16] LABS: ABS Eosinophils 0.1 10^3/ul (0-0.6); ABS Lymphocytes 1.2 10^3/ul (1.0-4.8); ABS Monocytes 0.4 10^3/ul (0-0.8); ABS Neutrophils 2.8 10^3/ul (1.5-7.7); Eosinophil % 2.6 %; Hematocrit 36 % (35-47); Hemoglobin 12.2 g/dL (12.0-16.0); Lymphocyte % 26.1 %; Mean Corpuscular HGB Conc 34 g/dL (31-36); Mean Corpuscular Hemoglobin 31 pg (27-31); Mean Corpuscular Volume 92 fL (80-97); Mean Platelet Volume 7.9 fL (7.4-10.4); Nucleated Red Blood Cells % 0.1; Platelet Count 223 10^3/uL (150-450); Red Blood Count 3.91 10^6 /uL (3.70-4.87); Red Cell Distribution Width 15 % (10-15); White Blood Count 4.5 10^3/uL (3.5-10.8)
[2021-03-18 09:34] LABS: Calcium 8.9 mg/dL (8.6-10.3); Magnesium 1.9 mg/dL (1.9-2.7); Phosphorus 3.5 mg/dL (2.5-5.0); Potassium 3.9 mmol/L (3.5-5.0)
[2021-03-18 12:05] LABS: Digoxin 0.5 ng/ml (0.8-2.0)
[2021-03-18] MEDS: cefTRIAXone 1 gm/50 mL NS BAG 1 GM/50 ML BAG IVPB SCH (20:24)
[2021-03-19 06:41] LABS: Hematocrit 35 % (35-47); Hemoglobin 12.1 g/dL (12.0-16.0); Mean Corpuscular HGB Conc 34 g/dL (31-36); Mean Corpuscular Hemoglobin 31 pg (27-31); Mean Corpuscular Volume 91 fL (80-97); Platelet Count 218 10^3/uL (150-450); Red Blood Count 3.87 10^6 /uL (3.70-4.87); Red Cell Distribution Width 15 % (10-15); White Blood Count 5.2 10^3/uL (3.5-10.8)
[2021-03-19 06:50] LABS: Albumin 3.7 g/dL (3.2-5.2); Albumin/Globulin Ratio 1.4 (1-3); Calcium 9.2 mg/dL (8.6-10.3); Direct Bilirubin 0.1 mg/dL (0.03-0.18); Globulin 2.7 g/dL (2-4); Indirect Bilirubin 0.6 mg/dL (0.3-1.0); Magnesium 1.9 mg/dL (1.9-2.7); Phosphorus 3.2 mg/dL (2.5-5.0); Potassium 3.9 mmol/L (3.5-5.0); Total Bilirubin 0.7 mg/dL (0.2-1.0); Total Protein 6.4 g/dL (6.4-8.9)
[2021-03-19] MEDS: Aspirin EC 81 mg TAB.EC (enteric coated) PO SCH (09:15)
[2021-03-19] MEDS: DULoxetine DR 30 mg CAP PO SCH (10:22)
[2021-03-20 07:01] LABS: Calcium 9.3 mg/dL (8.6-10.3); Potassium 3.8 mmol/L (3.5-5.0)
[2021-03-20] MEDS: Aspirin EC 81 mg TAB.EC (enteric coated) PO SCH (07:59)
[2021-03-20] MEDS: DULoxetine DR 30 mg CAP PO SCH (07:59)
[2021-03-20 11:50] VITALS: BP 141/74
== END 2021-03-20 14:20 | DRG 315 ==
LOC: EDHOLD 13:18 → ED 13:18 → SUATTDRO 20:36 → EDHOLD 23:30 → MEDTELE 03-18 00:45
PROVIDERS: ADMIT Internal Medicine; ATTEND Internal Medicine